=== PATIENT | female | born 1980 | race Two or more races ===

== ENCOUNTER 2019-06-28 21:28 | Emergency (ER) | payer MEDICAID ==
[~2019-06-28] VITALS: Ht 157.5 cm; Wt 77.1 kg
[2019-06-28 22:46] VITALS: BP 152/80
== END 2019-06-28 23:02 | disposition home or self-care (01) ==
LOC: ER 21:31
DX: S00.86XA Insect bite (nonvenomous) of other part of head, initial encounter (principal); I10 Essential (primary) hypertension; W57.XXXA Bitten or stung by nonvenomous insect and other nonvenomous arthropods, initial encounter; Y93.89 Activity, other specified; Y92.89 Other specified places as the place of occurrence of the external cause; Y99.8 Other external cause status

== ENCOUNTER 2021-02-20 18:45 | Inpatient (IN) | payer MEDICAID ==
[~2021-02-20] VITALS: Ht 157.5 cm; Wt 83.2 kg
[2021-02-20 23:27] LABS: Basophils # (auto) 0.1 10 ^3/uL (0-0.2); Basophils % (auto) 0.6 % (0.0-2.0); Eosinophils # (auto) 0 10 ^3/uL (0-0.8); Eosinophils % (auto) 0.3 % (0.0-7.0); Hematocrit 45.3 % (36.0-46.0); Hemoglobin 15.5 g/dL (12.2-16.2); Lymphocytes # (auto) 4.4 10 ^3/uL (0.4-5.4); Lymphocytes % (auto) 35.9 % (10.0-50.0); Mean Corpuscular Hemoglobin 30.9 pg (28.0-32.0); Mean Corpuscular Hgb Conc. 34.1 g/dL (32.0-36.0); Mean Corpuscular Volume 90.6 fL (80.0-100.0); Monocytes # (auto) 0.9 10 ^3/uL (0-1.3); Monocytes % (auto) 6.9 % (0.0-12.0); Neutrophils % (auto) 56.3 % (37.0-80.0); Nucleated Red Blood Cells % 0.1 %; Red Cell Distribution Width 13.3 % (11.8-14.3); White Blood Cell 12.4 10^3/uL (4.4-10.8)
[2021-02-20 23:47] LABS: Albumin 3.6 g/dL (3.4-5.0); Calcium 8.5 mg/dL (8.5-10.1)
[2021-02-20 23:52] LABS: BUN/Creatinine Ratio 18.8; Bilirubin, Total 0.2 mg/dL (0.2-1.0); Total Protein 7.5 g/dL (6.4-8.2)
[2021-02-21 00:17] LABS: Potassium 2.9 mmol/L (3.5-5.1)
[2021-02-21] MEDS ORDERED: ASPirin 81 mg TAB PO ONE (01:00)
[2021-02-21] MEDS ORDERED: METOPROLOL TARTRATE 1MG/1ML-5ML VIAL IV ONE ×2 (01:45→03:45)
[2021-02-21] MEDS ORDERED: POTASSIUM CHL 20MEQ/100ML 100 ML IV ONE (02:15)
[2021-02-21] MEDS ORDERED: POTASSIUM EFFERVESENT TAB 25 MEQ PO ONE (02:15)
[2021-02-21 02:54] LABS: Albumin 3.4 g/dL (3.4-5.0); BUN/Creatinine Ratio 16.3; Calcium 8.5 mg/dL (8.5-10.1); Magnesium 2.1 mg/dL (1.6-2.6); Potassium 3.2 mmol/L (3.5-5.1)
[2021-02-21 02:57] LABS: Bilirubin, Total 0.4 mg/dL (0.2-1.0)
[2021-02-21 03:05] LABS: INR 1.06 (0.9-1.15); Partial Thromboplastin Time 23.9 sec (23.6-33.0)
[2021-02-21 03:27] LABS: Urine Bacteria NONE SEEN /hpf (None Seen); Urine Blood Negative /uL (Negative); Urine WBC 4 /hpf (0 - 5)
[2021-02-21] MEDS ORDERED: SODIUM CHLORIDE 0.9% 1,000 ML IV ONE (03:45)
[2021-02-21] MEDS ORDERED: ONDANSETRON HCL 4 MG/2 ML VIAL IV PRN (09:30)
[2021-02-21] MEDS ORDERED: NITROGLYCERIN 0.4 MG SL TAB SL PRN (09:30)
[2021-02-21] MEDS ORDERED: HYDROcodone-ACET 5/325MG TAB PO PRN (09:30)
[2021-02-21] MEDS ORDERED: ACETAMINOPHEN 325 MG TAB PO PRN (09:30)
[2021-02-21] MEDS ORDERED: MORPHINE SULFATE INJECTION 2 MG/ML SYRG IV PRN (09:30)
[2021-02-21] MEDS: ENOXAPARIN SOD 40 MG/0.4 ML SYRINGE SC SCH (10:35)
[2021-02-21 12:52] VITALS: BP 95/60
[2021-02-21] MEDS ORDERED: HYDR50TA69 PO (13:44)
[2021-02-21] MEDS ORDERED: BENA20TA14 PO (13:44)
[2021-02-21] MEDS ORDERED: ATEN50TA PO (13:44)
[2021-02-21 13:48] VITALS: BP 98/54
[2021-02-21] MEDS ORDERED: METOPROLOL TARTRATE 1MG/1ML-5ML VIAL IV PRN (16:25)
[2021-02-21 16:34] VITALS: BP 101/61
[2021-02-21] MEDS ORDERED: DIGOXIN (250MCG/ML) 2 ML AMPULE IV ONE (17:45)
[2021-02-21] MEDS ORDERED: AMIODARONE HCL 150 MG in D5W 5% 100 ML IV ONE (17:45)
[2021-02-21] MEDS: AMIODARONE 450mg/250ml AE 250 ML IV SCH (19:44)
[2021-02-21 20:00] VITALS: BP 98/63
[2021-02-21 22:00] VITALS: BP 103/57
[2021-02-22] MEDS: AMIODARONE 450mg/250ml AE 250 ML IV SCH ×3 (02:25→17:52)
[2021-02-22 05:24] VITALS: BP 102/63
[2021-02-22 08:00] VITALS: BP 100/70
[2021-02-22 09:00] VITALS: BP 100/70
[2021-02-22] MEDS: ENOXAPARIN SOD 40 MG/0.4 ML SYRINGE SC SCH (09:49)
[2021-02-22] MEDS: MORPHINE SULFATE 4 MG/ML SYR/VIAL IV PRN (09:50)
[2021-02-22 13:00] VITALS: BP 106/64
[2021-02-22 16:58] VITALS: BP 120/67
[2021-02-22 21:49] VITALS: BP 101/63
[2021-02-23 05:13] VITALS: BP 102/71
[2021-02-23 06:15] LABS: Potassium 3.7 mmol/L (3.5-5.1)
[2021-02-23 06:19] LABS: BUN/Creatinine Ratio 22.9
[2021-02-23 08:00] VITALS: BP 121/64
[2021-02-23] MEDS: AMIODARONE 450mg/250ml AE 250 ML IV SCH (08:30)
[2021-02-23 09:00] VITALS: BP 121/64
[2021-02-23] MEDS: ENOXAPARIN SOD 40 MG/0.4 ML SYRINGE SC SCH (10:17)
[2021-02-23] MEDS: MORPHINE SULFATE 4 MG/ML SYR/VIAL IV PRN (10:19)
[2021-02-23 13:00] VITALS: BP 120/64
[2021-02-23 17:04] VITALS: BP 109/77
[2021-02-23] MEDS: ATENOLOL 50 MG TAB PO SCH (17:45)
[2021-02-23] MEDS: AMIODARONE HCL 200 MG TAB PO SCH (21:34)
[2021-02-23 22:00] VITALS: BP 133/81
[2021-02-23] MEDS ORDERED: AMIODARONE 450mg/250ml AE 250 ML IV SCH (23:00)
[2021-02-24 05:00] VITALS: BP 116/77
[2021-02-24] MEDS: MORPHINE SULFATE 4 MG/ML SYR/VIAL IV PRN (05:23)
[2021-02-24 06:37] LABS: BUN/Creatinine Ratio 18.7; Calcium 8.3 mg/dL (8.5-10.1); Potassium 4.1 mmol/L (3.5-5.1)
[2021-02-24 08:40] VITALS: BP 107/66
[2021-02-24] MEDS: ENOXAPARIN SOD 40 MG/0.4 ML SYRINGE SC SCH (09:34)
[2021-02-24] MEDS: AMIODARONE HCL 200 MG TAB PO SCH (09:35)
[2021-02-24] MEDS: ATENOLOL 50 MG TAB PO SCH (09:36)
[2021-02-24 13:00] VITALS: BP 115/66
[2021-02-24 14:17] VITALS: BP 115/66
== END 2021-02-24 15:20 | disposition home or self-care (01) | DRG 201 ==
LOC: ER 18:47 → TELE 02-21 09:29 → TELE-CENTR 02-21 12:35
PROVIDERS: ADMIT Internal Medicine; ATTEND Internal Medicine
DX: I48.0 Paroxysmal atrial fibrillation (principal); I27.20 Pulmonary hypertension, unspecified; I48.92 Unspecified atrial flutter; I20.9 Angina pectoris, unspecified; I10 Essential (primary) hypertension; M79.602 Pain in left arm; R77.8 Other specified abnormalities of plasma proteins; Z95.0 Presence of cardiac pacemaker; Z88.0 Allergy status to penicillin; Z20.822 Contact with and (suspected) exposure to COVID-19
CPT/HCPCS: 36415; 71045; 80048; 80053; 81001; 81025; 83735; 83880; 84443; 84484; 85025; 85610; 85730; 87426; 93005; 93306; 96365; 96366; 96372; 96375; 96376; G0378; J3480; J7060

== ENCOUNTER 2021-04-01 02:26 | Inpatient (IN) | payer MEDICAID ==
[~2021-04-01] VITALS: Ht 157.5 cm; Wt 77.1 kg
[~2021-04-01 02:26] MED LIST: ATEN50TA PO; BENA20TA14 PO; HYDR50TA69 PO
[2021-04-01 05:15] LABS: Basophils # (auto) 0 10 ^3/uL (0-0.2); Basophils % (auto) 0.2 % (0.0-2.0); Eosinophils # (auto) 0 10 ^3/uL (0-0.8); Eosinophils % (auto) 0.1 % (0.0-7.0); Hematocrit 42.9 % (36.0-46.0); Lymphocytes % (auto) 10.4 % (10.0-50.0); Mean Corpuscular Hemoglobin 31.6 pg (28.0-32.0); Mean Corpuscular Hgb Conc. 34.8 g/dL (32.0-36.0); Mean Corpuscular Volume 90.6 fL (80.0-100.0); Monocytes # (auto) 0.5 10 ^3/uL (0-1.3); Monocytes % (auto) 4.8 % (0.0-12.0); Neutrophils # (auto) 8.3 10 ^3/uL (1.6-8.6); Neutrophils % (auto) 84.5 % (37.0-80.0); Red Blood Cells 4.74 10^6/uL (4.0-5.20); Red Cell Distribution Width 14.2 % (11.8-14.3); White Blood Cell 9.8 10^3/uL (4.4-10.8)
[2021-04-01 05:48] LABS: Albumin 4.3 g/dL (3.4-5.0); Calcium 8.7 mg/dL (8.5-10.1)
[2021-04-01 05:53] LABS: BUN/Creatinine Ratio 18.8; Bilirubin, Total 0.9 mg/dL (0.2-1.0); Total Protein 7.9 g/dL (6.4-8.2)
[2021-04-01 06:01] LABS: Potassium 2.9 mmol/L (3.5-5.1)
[2021-04-01] MEDS ORDERED: POTASSIUM EFFERVESENT TAB 25 MEQ PO ONE (07:00)
[2021-04-01] MEDS ORDERED: ONDANSETRON HCL 4 MG/2 ML VIAL IV ONE (10:15)
[2021-04-01 10:59] LABS: Urine Bacteria NONE SEEN /hpf (None Seen); Urine Blood 2+ /uL (Negative); Urine Mucus FEW (None Seen); Urine Specific Gravity 1.023 (1.001-1.035); Urine WBC 8 /hpf (0 - 5)
[2021-04-01] MEDS ORDERED: NITROGLYCERIN 0.4 MG SL TAB SL PRN (12:15)
[2021-04-01] MEDS ORDERED: DOCUSATE SOD 100 MG CAP PO PRN (12:15)
[2021-04-01] MEDS ORDERED: ACETAMINOPHEN 325 MG TAB PO PRN (12:15)
[2021-04-01] MEDS ORDERED: HYDROcodone-ACET 5/325MG TAB PO PRN (12:15)
[2021-04-01] MEDS ORDERED: hydrOXYzine 25 MG TAB or CAP PO PRN (12:15)
[2021-04-01] MEDS: LEVALBUTEROL HCL 1.25 MG/3 ML NEB NEB SCH ×2 (12:15→18:18)
[2021-04-01] MEDS ORDERED: MORPHINE SULFATE INJECTION 2 MG/ML SYRG IV PRN (12:15)
[2021-04-01 14:23] VITALS: BP 84/60
[2021-04-01] MEDS: POTASSIUM CHL 20MEQ/50ML 50 ML IV SCH ×3 (14:25→17:50)
[2021-04-01] MEDS: DOXYCYCLINE 100MG/250ML 250 ML IV SCH ×2 (14:25→23:17)
[2021-04-01] MEDS ORDERED: APIX5TAB PO (18:44)
[2021-04-01] MEDS ORDERED: AMIO200T33 PO (18:44)
[2021-04-01] MEDS: ASCORBIC ACID 500 MG TAB PO SCH (23:17)
[2021-04-02] MEDS ORDERED: SODIUM CHLORIDE 0.9% 1,000 ML IV ONE (00:45)
[2021-04-02] MEDS ORDERED: SODIUM CHLORIDE 0.9% 1,000 ML IV SCH (00:45)
[2021-04-02 03:37] LABS: Basophils # (auto) 0 10 ^3/uL (0-0.2); Basophils % (auto) 0.5 % (0.0-2.0); Eosinophils # (auto) 0 10 ^3/uL (0-0.8); Eosinophils % (auto) 0.3 % (0.0-7.0); Hematocrit 37.3 % (36.0-46.0); Hemoglobin 12.9 g/dL (12.2-16.2); Lymphocytes # (auto) 1.3 10 ^3/uL (0.4-5.4); Lymphocytes % (auto) 24.7 % (10.0-50.0); Mean Corpuscular Hemoglobin 31.9 pg (28.0-32.0); Mean Corpuscular Hgb Conc. 34.7 g/dL (32.0-36.0); Mean Corpuscular Volume 92.1 fL (80.0-100.0); Monocytes # (auto) 0.7 10 ^3/uL (0-1.3); Monocytes % (auto) 14.2 % (0.0-12.0); Neutrophils # (auto) 3.1 10 ^3/uL (1.6-8.6); Neutrophils % (auto) 60.3 % (37.0-80.0); Nucleated Red Blood Cells % 0.1 %; Red Blood Cells 4.05 10^6/uL (4.0-5.20); Red Cell Distribution Width 14.4 % (11.8-14.3); White Blood Cell 5.1 10^3/uL (4.4-10.8)
[2021-04-02 04:13] LABS: BUN/Creatinine Ratio 18.1; Calcium 7.8 mg/dL (8.5-10.1); Potassium 3.3 mmol/L (3.5-5.1)
[2021-04-02] MEDS: LEVALBUTEROL HCL 1.25 MG/3 ML NEB NEB SCH ×3 (06:39→13:08)
[2021-04-02 08:00] VITALS: BP 87/65
[2021-04-02] MEDS ORDERED: ZINC SULFATE 220mg CAP or TAB PO SCH (10:00)
[2021-04-02] MEDS ORDERED: CHOLECALCIFEROL (VITD3) 2,000 UNIT CAP/TAB PO SCH (10:00)
[2021-04-02] MEDS: ASCORBIC ACID 500 MG TAB PO SCH (11:35)
[2021-04-02] MEDS: DOXYCYCLINE 100MG/250ML 250 ML IV SCH (11:36)
[2021-04-02] MEDS ORDERED: HYDR25TA5 GT (13:11)
[2021-04-02] MEDS ORDERED: POTASSIUM CHL 20 Meq TABLET PO ONE (14:30)
[2021-04-02] MEDS ORDERED: HYDR25TA5 PO (14:43)
[2021-04-02] MEDS ORDERED: ATEN-60 PO (14:43)
[2021-04-02] MEDS ORDERED: POTA-180 PO (14:43)
[2021-04-03] MEDS ORDERED: POTASSIUM CHL 20 Meq TABLET PO SCH (10:00)
== END 2021-04-02 15:46 | disposition home or self-care (01) | DRG 198 ==
LOC: ER 02:26 → TELE 12:02
PROVIDERS: ADMIT Internal Medicine; ATTEND Internal Medicine
DX: R07.89 Other chest pain (principal); I25.10 Atherosclerotic heart disease of native coronary artery without angina pectoris; J96.00 Acute respiratory failure, unspecified whether with hypoxia or hypercapnia; I48.92 Unspecified atrial flutter; I11.0 Hypertensive heart disease with heart failure; I50.9 Heart failure, unspecified; E66.01 Morbid (severe) obesity due to excess calories; E87.6 Hypokalemia; J06.9 Acute upper respiratory infection, unspecified; J98.11 Atelectasis; Z79.01 Long term (current) use of anticoagulants; Z68.31 Body mass index [BMI] 31.0-31.9, adult; Z20.822 Contact with and (suspected) exposure to COVID-19; Z87.74 Personal history of (corrected) congenital malformations of heart and circulatory system; Z95.0 Presence of cardiac pacemaker; Z79.899 Other long term (current) drug therapy; Z88.0 Allergy status to penicillin
CPT/HCPCS: 36415; 71045; 80048; 80053; 81001; 83605; 83690; 83880; 84132; 84484; 85025; 87426; 87804; 93005; 94640; 96374; G0378; J2405; J3490

== ENCOUNTER 2021-07-16 00:53 | Inpatient (IN) | payer MEDICAID ==
[~2021-07-16] VITALS: Ht 157.5 cm; Wt 78.3 kg
[~2021-07-16 00:53] MED LIST changes: +AMIO200T33 PO; +APIX5TAB PO; +ATEN-60 PO; +HYDR25TA5 GT; +HYDR25TA5 PO; -HYDR50TA69 PO; +POTA-180 PO
[2021-07-16 02:17] LABS: Basophils # (auto) 0 10 ^3/uL (0-0.2); Basophils % (auto) 0.3 % (0.0-2.0); Eosinophils # (auto) 0 10 ^3/uL (0-0.8); Eosinophils % (auto) 0.1 % (0.0-7.0); Hematocrit 35.9 % (36.0-46.0); Lymphocytes # (auto) 1.6 10 ^3/uL (0.4-5.4); Mean Corpuscular Hemoglobin 30.3 pg (28.0-32.0); Mean Corpuscular Hgb Conc. 33.4 g/dL (32.0-36.0); Mean Corpuscular Volume 90.8 fL (80.0-100.0); Monocytes # (auto) 0.6 10 ^3/uL (0-1.3); Monocytes % (auto) 8.1 % (0.0-12.0); Neutrophils # (auto) 5.4 10 ^3/uL (1.6-8.6); Neutrophils % (auto) 70.5 % (37.0-80.0); Nucleated Red Blood Cells % 0.1 %; Red Blood Cells 3.96 10^6/uL (4.0-5.20); Red Cell Distribution Width 14.1 % (11.8-14.3); White Blood Cell 7.6 10^3/uL (4.4-10.8)
[2021-07-16 02:35] LABS: Potassium 3.7 mmol/L (3.5-5.1)
[2021-07-16 02:39] LABS: Albumin 3.6 g/dL (3.4-5.0); BUN/Creatinine Ratio 17.9; Calcium 8.8 mg/dL (8.5-10.1)
[2021-07-16 02:42] LABS: Bilirubin, Total 0.3 mg/dL (0.2-1.0); Total Protein 6.4 g/dL (6.4-8.2)
[2021-07-16 04:05] LABS: Urine Bacteria FEW /hpf (None Seen); Urine Blood Negative /uL (Negative); Urine Specific Gravity 1.015 (1.001-1.035); Urine WBC 18 /hpf (0 - 5)
[2021-07-16] MEDS ORDERED: IOHEXOL 350 MG/ML 100ML IJ ONE (05:02)
[2021-07-16] MEDS ORDERED: MORPHINE SULFATE 4 MG/ML SYR/VIAL IV ONE (05:45)
[2021-07-16] MEDS ORDERED: FUROSEMIDE 100 MG/10ML VIAL IV ONE (06:45)
[2021-07-16] MEDS ORDERED: PIPERACILLIN-TAZOB 3.375GM 100 ML IV ONE (07:30)
[2021-07-16] MEDS ORDERED: cefTRIAXone 1GM/50ML D5W 50 ML IV ONE (11:00)
[2021-07-16] MEDS ORDERED: ONDANSETRON HCL 4 MG/2 ML VIAL IV PRN (12:00)
[2021-07-16] MEDS ORDERED: MORPHINE SULFATE INJECTION 2 MG/ML SYRG IV PRN (12:00)
[2021-07-16] MEDS ORDERED: NITROGLYCERIN 0.4 MG SL TAB SL PRN (12:00)
[2021-07-16] MEDS: HYDROcodone-ACET 5/325MG TAB PO PRN ×2 (14:02→22:40)
[2021-07-16 16:07] VITALS: BP 99/67
[2021-07-16 17:00] VITALS: BP 99/67
[2021-07-16] MEDS: BUMETANIDE 2.5mg/10ml (0.25 mg/ml) INJ IV SCH (17:53)
[2021-07-16 22:00] VITALS: BP 102/63
[2021-07-16] MEDS: AMIODARONE HCL 200 MG TAB PO SCH (22:17)
[2021-07-16] MEDS: APIXABAN 5 MG TAB PO SCH (22:17)
[2021-07-16] MEDS: POTASSIUM CHL 20 Meq TABLET PO SCH (22:17)
[2021-07-17 05:00] VITALS: BP 110/48
[2021-07-17 05:46] LABS: BUN/Creatinine Ratio 17.6; Calcium 8.2 mg/dL (8.5-10.1); Potassium 3.3 mmol/L (3.5-5.1)
[2021-07-17] MEDS: BUMETANIDE 2.5mg/10ml (0.25 mg/ml) INJ IV SCH (06:06)
[2021-07-17 08:00] VITALS: BP 107/60
[2021-07-17] MEDS: POTASSIUM CHL 20 Meq TABLET PO SCH (09:13)
[2021-07-17] MEDS: APIXABAN 5 MG TAB PO SCH (09:13)
[2021-07-17] MEDS: AMIODARONE HCL 200 MG TAB PO SCH (09:13)
[2021-07-17] MEDS ORDERED: ATENOLOL 25 MG TAB PO SCH (10:00)
[2021-07-17 12:00] VITALS: BP 103/64
[2021-07-17] MEDS ORDERED: HYDR25TA5 PO (13:57)
[2021-07-17] MEDS ORDERED: CIPR-173 PO (13:57)
[2021-07-17] MEDS ORDERED: POTA-180 PO (13:57)
[2021-07-17 14:02] VITALS: BP 103/64
== END 2021-07-17 15:00 | disposition home or self-care (01) | DRG 194 ==
LOC: ER 01:03 → TELE 11:59 → TELE-EAST 16:03
PROVIDERS: ADMIT Hospitalist; ATTEND Hospitalist
DX: I11.0 Hypertensive heart disease with heart failure (principal); Q20.5 Discordant atrioventricular connection; N39.0 Urinary tract infection, site not specified; I50.43 Acute on chronic combined systolic (congestive) and diastolic (congestive) heart failure; R09.02 Hypoxemia; I48.91 Unspecified atrial fibrillation; R79.89 Other specified abnormal findings of blood chemistry; Z20.822 Contact with and (suspected) exposure to COVID-19; Z82.49 Family history of ischemic heart disease and other diseases of the circulatory system; Z95.0 Presence of cardiac pacemaker; Z88.0 Allergy status to penicillin
CPT/HCPCS: 36415; 71045; 71275; 80048; 80053; 81001; 81025; 83880; 84484; 85025; 87040; 93306; 96365; 96367; 96375; G0378; J0696; J2543

== ENCOUNTER 2021-11-14 08:43 | Emergency (ER) | payer MEDICAID ==
[~2021-11-14] VITALS: Ht 157.5 cm; Wt 79.0 kg
[~2021-11-14 08:43] MED LIST changes: -ATEN50TA PO; -BENA20TA14 PO; +CIPR-173 PO; -HYDR25TA5 GT
[2021-11-14 09:44] LABS: Basophils # (auto) 0 10 ^3/uL (0-0.2); Eosinophils # (auto) 0 10 ^3/uL (0-0.8); Monocytes # (auto) 0.6 10 ^3/uL (0-1.3); Nucleated Red Blood Cells % 0.1 %; Red Cell Distribution Width 14.4 % (11.8-14.3)
[2021-11-14 09:48] LABS: Basophils % (auto) 0.5 % (0.0-2.0); Eosinophils % (auto) 0.1 % (0.0-7.0); Hematocrit 36.5 % (36.0-46.0); Lymphocytes % (auto) 27.4 % (10.0-50.0); Mean Corpuscular Hemoglobin 26.9 pg (28.0-32.0); Mean Corpuscular Volume 81.4 fL (80.0-100.0); Neutrophils # (auto) 4.7 10 ^3/uL (1.6-8.6); Red Blood Cells 4.48 10^6/uL (4.0-5.20); White Blood Cell 7.3 10^3/uL (4.4-10.8)
[2021-11-14 10:07] LABS: Albumin 3.9 g/dL (3.4-5.0); Calcium 8.6 mg/dL (8.5-10.1)
[2021-11-14 10:11] LABS: BUN/Creatinine Ratio 17.5; Bilirubin, Total 0.6 mg/dL (0.2-1.0); Total Protein 7.2 g/dL (6.4-8.2)
[2021-11-14 10:19] LABS: Potassium 2.9 mmol/L (3.5-5.1)
[2021-11-14 10:37] LABS: Urine Bacteria FEW /hpf (None Seen); Urine Blood Negative /uL (Negative); Urine Mucus FEW (None Seen); Urine Specific Gravity 1.021 (1.001-1.035); Urine WBC 18 /hpf (0 - 5)
[2021-11-14] MEDS ORDERED: POTASSIUM EFFERVESENT TAB 25 MEQ PO ONE (10:45)
[2021-11-14] MEDS ORDERED: NITR-87 PO (11:14)
[2021-11-14] MEDS ORDERED: cefTRIAXone 1GM/50ML D5W 50 ML IV ONE (11:15)
[2021-11-14 12:00] VITALS: BP 106/68
[2021-11-14] MEDS ORDERED: LORazepam 2MG/ML-1ML VIAL IV ONE (12:45)
== END 2021-11-14 13:07 | disposition home or self-care (01) ==
LOC: ER 08:43
DX: R00.2 Palpitations (principal); N39.0 Urinary tract infection, site not specified; E87.6 Hypokalemia; I10 Essential (primary) hypertension; I48.91 Unspecified atrial fibrillation; Z95.0 Presence of cardiac pacemaker; Z79.2 Long term (current) use of antibiotics; Z79.899 Other long term (current) drug therapy; Z88.0 Allergy status to penicillin
CPT/HCPCS: 36415; 71045; 80053; 81001; 84484; 85025; 85379; 93005; 96365; 99285; J0696

== ENCOUNTER 2021-12-10 08:20 | Inpatient (IN) | payer MEDICAID ==
[~2021-12-10] VITALS: Ht 157.5 cm; Wt 80.5 kg
[~2021-12-10 08:20] MED LIST changes: +NITR-87 PO
[2021-12-10 08:50] LABS: Albumin 3.7 g/dL (3.4-5.0); Calcium 8.1 mg/dL (8.5-10.1); Potassium 3.4 mmol/L (3.5-5.1)
[2021-12-10 08:54] LABS: BUN/Creatinine Ratio 16.3; Basophils # (auto) 0 10 ^3/uL (0-0.2); Bilirubin, Total 0.8 mg/dL (0.2-1.0); Eosinophils # (auto) 0 10 ^3/uL (0-0.8); Lymphocytes # (auto) 1.4 10 ^3/uL (0.4-5.4); Neutrophils # (auto) 8.2 10 ^3/uL (1.6-8.6); Total Protein 6.8 g/dL (6.4-8.2); White Blood Cell 10.3 10^3/uL (4.4-10.8)
[2021-12-10 08:56] LABS: Basophils % (auto) 0.3 % (0.0-2.0); Hematocrit 31.5 % (36.0-46.0); Hemoglobin 10.4 g/dL (12.2-16.2); Lymphocytes % (auto) 13.3 % (10.0-50.0); Mean Corpuscular Hemoglobin 26.7 pg (28.0-32.0); Mean Corpuscular Hgb Conc. 33.1 g/dL (32.0-36.0); Mean Corpuscular Volume 80.8 fL (80.0-100.0); Monocytes # (auto) 0.8 10 ^3/uL (0-1.3); Monocytes % (auto) 7.3 % (0.0-12.0); Neutrophils % (auto) 79.1 % (37.0-80.0); Nucleated Red Blood Cells % 0.2 %; Red Cell Distribution Width 14.8 % (11.8-14.3)
[2021-12-10] MEDS ORDERED: MORPHINE SULFATE INJ 2 MG/ml SYRG IV ONE (11:00)
[2021-12-10] MEDS ORDERED: ASPirin 81 mg TAB PO ONE (11:00)
[2021-12-10] MEDS ORDERED: SODIUM CHLORIDE 0.9% 1,000 ML IV ONE (11:00)
[2021-12-10] MEDS ORDERED: ONDANSETRON HCL 4 MG/2 ML VIAL IV ONE (11:00)
[2021-12-10 11:37] LABS: INR 1.03 (0.9-1.15); Partial Thromboplastin Time 26.5 sec (24.6-33.4)
[2021-12-10 14:02] LABS: Urine Bacteria FEW /hpf (None Seen); Urine Blood Negative /uL (Negative); Urine Mucus FEW (None Seen); Urine Specific Gravity 1.038 (1.001-1.035); Urine WBC 78 /hpf (0 - 5)
[2021-12-10] MEDS ORDERED: cefTRIAXone 1GM/50ML D5W 50 ML IV ONE (14:45)
[2021-12-10] MEDS ORDERED: MORPHINE SULFATE INJ 2 MG/ml SYRG IV PRN (15:30)
[2021-12-10] MEDS ORDERED: DOCUSATE SOD 100 MG CAP PO PRN (15:30)
[2021-12-10] MEDS ORDERED: ONDANSETRON HCL 4 MG/2 ML VIAL IV PRN (15:30)
[2021-12-10] MEDS: SODIUM CHLORIDE 0.9% 1,000 ML IV SCH (16:16)
[2021-12-10] MEDS ORDERED: IOHEXOL 350 MG/ML 100ML IJ ONE (16:36)
[2021-12-10] MEDS: AZITHROMYCIN 500MG/ 250ML 250 ML IV SCH (17:04)
[2021-12-10] MEDS: ACETAMINOPHEN 325 MG TAB PO PRN ×2 (17:17→22:17)
[2021-12-11 04:57] LABS: Basophils # (auto) 0 10 ^3/uL (0-0.2); Basophils % (auto) 0.4 % (0.0-2.0); Eosinophils # (auto) 0 10 ^3/uL (0-0.8); Lymphocytes # (auto) 1.2 10 ^3/uL (0.4-5.4); Mean Corpuscular Hgb Conc. 32.3 g/dL (32.0-36.0); Monocytes # (auto) 0.6 10 ^3/uL (0-1.3); Red Cell Distribution Width 14.9 % (11.8-14.3)
[2021-12-11 05:02] LABS: Eosinophils % (auto) 0.1 % (0.0-7.0); Hematocrit 30.9 % (36.0-46.0); Lymphocytes % (auto) 16.9 % (10.0-50.0); Mean Corpuscular Hemoglobin 26.2 pg (28.0-32.0); Monocytes % (auto) 8.7 % (0.0-12.0); Neutrophils # (auto) 5.2 10 ^3/uL (1.6-8.6); Neutrophils % (auto) 73.9 % (37.0-80.0); Nucleated Red Blood Cells % 0.1 %; Red Blood Cells 3.82 10^6/uL (4.0-5.20)
[2021-12-11 05:15] LABS: Albumin 3.3 g/dL (3.4-5.0); Calcium 7.7 mg/dL (8.5-10.1); Potassium 3.7 mmol/L (3.5-5.1)
[2021-12-11 05:17] LABS: BUN/Creatinine Ratio 14.1; Bilirubin, Total 0.5 mg/dL (0.2-1.0); Total Protein 6.3 g/dL (6.4-8.2)
[2021-12-11] MEDS: HYDROcodone-ACET 5/325MG TAB PO PRN ×2 (06:51→22:16)
[2021-12-11] MEDS: SODIUM CHLORIDE 0.9% 1,000 ML IV SCH (09:37)
[2021-12-11] MEDS: cefTRIAXone 1GM/50ML D5W 50 ML IV SCH (09:37)
[2021-12-11] MEDS ORDERED: ENOXAPARIN SOD 40 MG/0.4 ML SYRINGE SC SCH (10:00)
[2021-12-11] MEDS ORDERED: AMIODARONE HCL 200 MG TAB PO ONE (13:00)
[2021-12-11] MEDS ORDERED: FUROSEMIDE 40 MG/4 ML VIAL IV ONE (13:00)
[2021-12-11] MEDS: AZITHROMYCIN 500MG/ 250ML 250 ML IV SCH (18:15)
[2021-12-11 18:16] VITALS: BP 110/48
[2021-12-11 18:25] VITALS: BP 110/48
[2021-12-11] MEDS: FUROSEMIDE 20 MG/2 ML VIAL IV SCH (18:43)
[2021-12-11] MEDS ORDERED: DAPA1TAB4 PO (18:47)
[2021-12-11] MEDS ORDERED: APIX5TAB PO (18:47)
[2021-12-11] MEDS ORDERED: SPIR25TA8 PO (18:47)
[2021-12-11 22:00] VITALS: BP 116/64
[2021-12-11] MEDS ORDERED: ENOXAPARIN SOD 80 MG/0.8ML SYRINGE SC SCH (22:00)
[2021-12-11] MEDS: AMIODARONE HCL 200 MG TAB PO SCH (22:16)
[2021-12-11] MEDS: METOPROLOL TARTRATE 25 MG TAB PO SCH (22:17)
[2021-12-12 05:00] VITALS: BP 103/57
[2021-12-12] MEDS: FUROSEMIDE 20 MG/2 ML VIAL IV SCH (06:37)
[2021-12-12 09:00] VITALS: BP 99/50
[2021-12-12] MEDS: cefTRIAXone 1GM/50ML D5W 50 ML IV SCH (09:54)
[2021-12-12] MEDS: DAPAGLIFLOZIN 5 MG TAB PO SCH (09:56)
[2021-12-12] MEDS: SPIRONOLACTONE 25 MG TAB PO SCH (09:56)
[2021-12-12] MEDS ORDERED: BENAZEPRIL HCL 10 MG TAB PO SCH (10:00)
[2021-12-12] MEDS: METOPROLOL TARTRATE 25 MG TAB PO SCH ×2 (10:05→21:27)
[2021-12-12] MEDS: HYDROcodone-ACET 5/325MG TAB PO PRN (10:06)
[2021-12-12] MEDS: AMIODARONE HCL 200 MG TAB PO SCH ×2 (10:07→21:24)
[2021-12-12 12:45] VITALS: BP 106/50
[2021-12-12 16:35] VITALS: BP 112/56
[2021-12-12] MEDS ORDERED: IPRATROPIUM BROM 0.5 MG/2.5ML INH SOL NEB PRN (16:45)
[2021-12-12] MEDS: APIXABAN 5 MG TAB PO SCH (21:25)
[2021-12-12] MEDS: DOXYCYCLINE 100 MG TAB/CAP PO SCH (21:25)
[2021-12-12 22:00] VITALS: BP 114/57
[2021-12-13] VITALS (7 sets, daily range): BP systolic 100–112; BP diastolic 44–59
[2021-12-13 05:38] LABS: Basophils # (auto) 0 10 ^3/uL (0-0.2); Eosinophils # (auto) 0.1 10 ^3/uL (0-0.8); Lymphocytes # (auto) 1.7 10 ^3/uL (0.4-5.4); Lymphocytes % (auto) 28.2 % (10.0-50.0); Mean Corpuscular Hgb Conc. 31.9 g/dL (32.0-36.0); Monocytes # (auto) 0.7 10 ^3/uL (0-1.3); Red Cell Distribution Width 14.9 % (11.8-14.3); White Blood Cell 5.9 10^3/uL (4.4-10.8)
[2021-12-13 05:43] LABS: Basophils % (auto) 0.4 % (0.0-2.0); Eosinophils % (auto) 1.4 % (0.0-7.0); Hematocrit 32.7 % (36.0-46.0); Hemoglobin 10.4 g/dL (12.2-16.2); Mean Corpuscular Volume 81.6 fL (80.0-100.0); Monocytes % (auto) 11.9 % (0.0-12.0); Neutrophils # (auto) 3.4 10 ^3/uL (1.6-8.6); Neutrophils % (auto) 58.1 % (37.0-80.0)
[2021-12-13 05:57] LABS: Calcium 8.2 mg/dL (8.5-10.1); Potassium 3.5 mmol/L (3.5-5.1)
[2021-12-13 06:04] LABS: Albumin 3.3 g/dL (3.4-5.0); BUN/Creatinine Ratio 24.6; Bilirubin, Total 0.4 mg/dL (0.2-1.0); Total Protein 6.4 g/dL (6.4-8.2)
[2021-12-13] MEDS ORDERED: FUROSEMIDE 20 MG/2 ML VIAL IV SCH (10:00)
[2021-12-13] MEDS: DOXYCYCLINE 100 MG TAB/CAP PO SCH (10:15)
[2021-12-13] MEDS: APIXABAN 5 MG TAB PO SCH (10:44)
[2021-12-13] MEDS: cefTRIAXone 1GM/50ML D5W 50 ML IV SCH (10:44)
[2021-12-13] MEDS: METOPROLOL TARTRATE 25 MG TAB PO SCH (12:00)
[2021-12-13] MEDS: SPIRONOLACTONE 25 MG TAB PO SCH (12:00)
[2021-12-13] MEDS: DAPAGLIFLOZIN 5 MG TAB PO SCH (12:39)
[2021-12-13] MEDS: AMIODARONE HCL 200 MG TAB PO SCH (12:39)
[2021-12-13] MEDS: HYDROcodone-ACET 5/325MG TAB PO PRN (12:48)
[2021-12-13] MEDS ORDERED: CLINDAMYCIN 300MG IV 50 ML IV SCH (15:41)
== END 2021-12-13 20:15 | disposition short-term general hospital (02) | DRG 133 ==
LOC: ER 08:20 → TELE 15:32 → TELE-CENTR 12-11 18:01
PROVIDERS: ADMIT Internal Medicine; ATTEND Nurse Practitioner Acute Care
DX: J96.01 Acute respiratory failure with hypoxia (principal); I21.A1 Myocardial infarction type 2; Q20.3 Discordant ventriculoarterial connection; I27.20 Pulmonary hypertension, unspecified; D69.6 Thrombocytopenia, unspecified; J18.9 Pneumonia, unspecified organism; D63.8 Anemia in other chronic diseases classified elsewhere; N30.01 Acute cystitis with hematuria; I11.0 Hypertensive heart disease with heart failure; E11.9 Type 2 diabetes mellitus without complications; Z20.822 Contact with and (suspected) exposure to COVID-19; I50.9 Heart failure, unspecified; E66.9 Obesity, unspecified; I48.0 Paroxysmal atrial fibrillation; Q20.5 Discordant atrioventricular connection; Z79.01 Long term (current) use of anticoagulants; Z79.899 Other long term (current) drug therapy; Z95.0 Presence of cardiac pacemaker; Z88.0 Allergy status to penicillin
CPT/HCPCS: 36415; 36600; 71045; 71046; 71275; 76604; 80053; 81001; 82805; 83036; 83735; 83880; 84443; 84484; 85025; 85379; 85610; 85730; 87040; 87081; 87086; 93005; 93306; 96361; 96374; 96375; G0378; J0696; J2405; J3490

== ENCOUNTER 2022-12-16 01:43 | Emergency (ER) | payer MEDICAID ==
[~2022-12-16] VITALS: Ht 157.5 cm; Wt 70.5 kg
[~2022-12-16 01:43] MED LIST changes: +DAPA1TAB4 PO; +SPIR25TA8 PO
[2022-12-16 02:44] LABS: Basophils # (auto) 0 10 ^3/uL (0-0.2); Basophils % (auto) 0.3 % (0.0-2.0); Eosinophils # (auto) 0 10 ^3/uL (0-0.8); Eosinophils % (auto) 0.1 % (0.0-7.0); Hematocrit 47.6 % (36.0-46.0); Hemoglobin 16.1 g/dL (12.2-16.2); Lymphocytes # (auto) 0.8 10 ^3/uL (0.4-5.4); Mean Corpuscular Hgb Conc. 33.8 g/dL (32.0-36.0); Mean Corpuscular Volume 91.7 fL (80.0-100.0); Monocytes # (auto) 0.5 10 ^3/uL (0-1.3); Monocytes % (auto) 6.5 % (0.0-12.0); Neutrophils # (auto) 6.1 10 ^3/uL (1.6-8.6); Neutrophils % (auto) 82.1 % (37.0-80.0); Nucleated Red Blood Cells % 0.1 %; Red Blood Cells 5.19 10^6/uL (4.0-5.20); Red Cell Distribution Width 13.6 % (11.8-14.3); White Blood Cell 7.5 10^3/uL (4.4-10.8)
[2022-12-16 02:53] LABS: Alanine Aminotransferase 20 U/L (7-40); Albumin 4.5 g/dL (3.2-4.8); Alkaline Phosphatase 56 U/L (46-116); Anion Gap 8 (5-15); Aspartate Aminotransferase 10 U/L (13-40); BUN/Creatinine Ratio 10.6 (10.0-20.0); Bilirubin, Total 1.1 mg/dL (0.2-1.0); Blood Urea Nitrogen 10 mg/dL (9-23); Calcium 9.2 mg/dL (8.7-10.4); Carbon Dioxide 20 mmol/L (20-30); Chloride 106 mmol/L (98-107); Glucose 105 mg/dL (74-106); Magnesium 1.9 mg/dL (1.6-2.6); Sodium 134 mmol/L (136-145); Total Protein 7.4 g/dL (5.7-8.2)
[2022-12-16 03:37] LABS: Urine Bacteria FEW /hpf (None Seen); Urine Blood Negative /uL (Negative); Urine Clarity Clear (Clear); Urine Color Yellow (Yellow); Urine Protein, UAD Negative (Negative); Urine Specific Gravity 1.032 (1.001-1.035); Urine Urobilinogen Normal (Negative); Urine WBC 6 /hpf (0 - 5); Urine pH 5.5 (5.0-8.0)
[2022-12-16] MEDS ORDERED: ASPirin 325 MG TAB PO ONE (07:15)
[2022-12-16 07:47] VITALS: PULSE 65; RESP 15; O2SAT 94
[2022-12-16 08:43] VITALS: BP 113/54; PULSE 73; RESP 18; TEMP 97.8; O2SAT 96
== END 2022-12-16 08:44 | disposition home or self-care (01) ==
LOC: ER 01:43
DX: R07.89 Other chest pain (principal); I10 Essential (primary) hypertension; E11.9 Type 2 diabetes mellitus without complications; E78.5 Hyperlipidemia, unspecified; Z88.0 Allergy status to penicillin
CPT/HCPCS: 36415; 71045; 80053; 81001; 83735; 84484; 85025; 85379; 93005

== ENCOUNTER 2023-03-02 17:36 | Inpatient (IN) | payer MEDICAID ==
[~2023-03-02] VITALS: Ht 157.5 cm; Wt 74.1 kg
[2023-03-02] MEDS ORDERED: ONDANSETRON HCL 4 MG/2 ML VIAL IV ONE (18:45)
[2023-03-02 19:04] LABS: Basophils # (auto) 0 10 ^3/uL (0-0.2); Basophils % (auto) 0.2 % (0.0-2.0); Eosinophils # (auto) 0 10 ^3/uL (0-0.8); Hematocrit 40.3 % (36.0-46.0); Lymphocytes # (auto) 0.5 10 ^3/uL (0.4-5.4); Mean Corpuscular Hemoglobin 30.1 pg (28.0-32.0); Mean Corpuscular Hgb Conc. 32.3 g/dL (32.0-36.0); Mean Corpuscular Volume 93.1 fL (80.0-100.0); Monocytes # (auto) 0.5 10 ^3/uL (0-1.3); Monocytes % (auto) 8.8 % (0.0-12.0); Neutrophils # (auto) 4.2 10 ^3/uL (1.6-8.6); Red Blood Cells 4.32 10^6/uL (4.0-5.20); Red Cell Distribution Width 13.9 % (11.8-14.3); White Blood Cell 5.2 10^3/uL (4.4-10.8)
[2023-03-02 19:17] LABS: INR 1.1 (0.9-1.15); Partial Thromboplastin Time 24.6 SEC (24.5-34.5); Prothrombin Time 11.5 sec (9.3-11.8)
[2023-03-02 19:20] LABS: Alanine Aminotransferase 15 U/L (7-40); Albumin 3.6 g/dL (3.2-4.8); Alkaline Phosphatase 43 U/L (46-116); Anion Gap 8 (5-15); Aspartate Aminotransferase 8 U/L (13-40); BUN/Creatinine Ratio 40.5 (10.0-20.0); Blood Urea Nitrogen 32 mg/dL (9-23); Calcium 7.7 mg/dL (8.7-10.4); Carbon Dioxide 22 mmol/L (20-30); Chloride 112 mmol/L (98-107); Glucose 114 mg/dL (74-106); Magnesium 1.9 mg/dL (1.6-2.6); Sodium 142 mmol/L (136-145)
[2023-03-02 19:21] LABS: Bilirubin, Total 0.2 mg/dL (0.2-1.0); Total Protein 5.4 g/dL (5.7-8.2)
[2023-03-02 20:00] VITALS: PULSE 70; RESP 15; O2SAT 96
[2023-03-02] MEDS ORDERED: PANTOPRAZOLE 80 MG in SODIUM CHL 0.9% 100 ML IV ONE (20:15)
[2023-03-02] MEDS ORDERED: AZITHROMYCIN 500MG/ 250ML 250 ML IV ONE (20:15)
[2023-03-02] MEDS ORDERED: HYDROmorphone HCL 2 MG/ML VL/or syr IV ONE (20:15)
[2023-03-02] MEDS ORDERED: PANTOPRAZOLE 40 MG/10 ML VIAL INJ IV ONE ×2 (20:15→22:20)
[2023-03-02] MEDS ORDERED: SODIUM CHLORIDE 0.9% 1,000 ML IVB ONE (20:15)
[2023-03-02] MEDS ORDERED: cefTRIAXone 1GM/50ML D5W 50 ML IV ONE (20:15)
[2023-03-02] MEDS ORDERED: METOCLOPRAMIDE HCL 5MG/ml INJ 2ml VIAL IV ONE (20:15)
[2023-03-02 20:46] LABS: Anisocytosis Slight; Large Platelets FEW; Platelet Estimate Decreased
[2023-03-02] MEDS ORDERED: IOHEXOL 300 MG/ML 100ML BOTTLE IJ ONE (20:56)
[2023-03-02 21:38] LABS: COVID19 ANTIGEN SOFIA FIA NEGATIVE (NEGATIVE); Rapid Influenza A Negative (Negative); Rapid Influenza B Negative (Negative)
[2023-03-02 21:56] LABS: Urine Bacteria NONE SEEN /hpf (None Seen); Urine Blood 3+ /uL (Negative); Urine Clarity Clear (Clear); Urine Color PINK (Yellow); Urine Mucus FEW (None Seen); Urine Protein, UAD 1+ (Negative); Urine Specific Gravity 1.022 (1.001-1.035); Urine Urobilinogen Normal (Negative); Urine WBC 5 /hpf (0 - 5); Urine pH 6.5 (5.0-8.0)
[2023-03-02] MEDS ORDERED: PANTOPRAZOLE 40mg/50ML NS AE 50 ML IV ONE (22:30)
[2023-03-02] MEDS ORDERED: HYDROmorphone HCL 2 MG/ML VL/or syr IV PRN (23:30)
[2023-03-02] MEDS ORDERED: ONDANSETRON HCL 4 MG/2 ML VIAL IV PRN (23:30)
[2023-03-02] MEDS ORDERED: HYDROcodone-ACET 5/325MG TAB PO PRN (23:30)
[2023-03-02] MEDS ORDERED: ACETAMINOPHEN 325 MG TAB PO PRN (23:30)
[2023-03-02] MEDS ORDERED: NITROGLYCERIN 0.4 MG SL TAB SL PRN (23:30)
[2023-03-02] MEDS ORDERED: DEXTROSE (50%) 50ML SYRG IV PRN (23:30)
[2023-03-02] MEDS ORDERED: MORPHINE SULFATE INJ 2 MG/ml SYRG IV PRN (23:30)
[2023-03-03] MEDS: ACCU-CHEK COMFORT CURVE STRIP VI SCH ×5 (00:19→23:44)
[2023-03-03] MEDS ORDERED: levoFLOXacin 500MG 100 ML IV ONE (01:30)
[2023-03-03] MEDS ORDERED: CALCIUM GLUC 1,000mg/50ml-NS 50 ML IV ONE (03:15)
[2023-03-03] MEDS: InsuLIN REG 1unit/0.01ml Soln (100units/ml) SC SCH ×6 (05:35→23:44)
[2023-03-03 05:36] LABS: Basophils # (auto) 0 10 ^3/uL (0-0.2); Basophils % (auto) 0.2 % (0.0-2.0); Eosinophils # (auto) 0 10 ^3/uL (0-0.8); Eosinophils % (auto) 0.1 % (0.0-7.0); Hematocrit 34.9 % (36.0-46.0); Hemoglobin 11.5 g/dL (12.2-16.2); Lymphocytes # (auto) 1.9 10 ^3/uL (0.4-5.4); Lymphocytes % (auto) 38.2 % (10.0-50.0); Mean Corpuscular Hemoglobin 30.1 pg (28.0-32.0); Mean Corpuscular Volume 91.2 fL (80.0-100.0); Monocytes # (auto) 0.8 10 ^3/uL (0-1.3); Monocytes % (auto) 15.7 % (0.0-12.0); Neutrophils # (auto) 2.3 10 ^3/uL (1.6-8.6); Neutrophils % (auto) 45.8 % (37.0-80.0); Nucleated Red Blood Cells % 0.1 %; Red Blood Cells 3.82 10^6/uL (4.0-5.20); Red Cell Distribution Width 13.4 % (11.8-14.3)
[2023-03-03 05:56] LABS: Alanine Aminotransferase 13 U/L (7-40); Albumin 3.7 g/dL (3.2-4.8); Alkaline Phosphatase 38 U/L (46-116); Anion Gap 8 (5-15); Aspartate Aminotransferase < 8 U/L (13-40); BUN/Creatinine Ratio 34.9 (10.0-20.0); Bilirubin, Total 0.2 mg/dL (0.2-1.0); Blood Urea Nitrogen 22 mg/dL (9-23); Calcium 8.3 mg/dL (8.5-10.1); Carbon Dioxide 21 mmol/L (20-30); Chloride 113 mmol/L (98-107); Potassium 3.7 mmol/L (3.5-5.1); Sodium 142 mmol/L (136-145); Total Protein 5.6 g/dL (5.7-8.2)
[2023-03-03 06:11] LABS: Glucose 85 mg/dL (74-106)
[2023-03-03 07:45] VITALS: PULSE 70; RESP 18; O2SAT 98
[2023-03-03] MEDS ORDERED: PANTOPRAZOLE 40 MG/10 ML VIAL INJ IV SCH (10:00)
[2023-03-03] MEDS ORDERED: APIXABAN 5 MG TAB PO SCH (10:00)
[2023-03-03] MEDS ORDERED: SODIUM CHLORIDE 0.9% 500 ML IV ONE (12:15)
[2023-03-03] MEDS ORDERED: cefTRIAXone 1GM/50ML D5W 50 ML IV ONE (13:15)
[2023-03-03] MEDS: SODIUM CHLORIDE 0.9% 1,000 ML IV SCH ×2 (13:20→22:15)
[2023-03-03] MEDS ORDERED: BENZ200C64 PO (19:52)
[2023-03-03 20:00] VITALS: PULSE 70
[2023-03-03 22:00] VITALS: BP 105/47; PULSE 70; RESP 16; TEMP 97.9; O2SAT 96
[2023-03-03] MEDS: PANTOPRAZOLE 40 MG/10 ML VIAL INJ IV SCH (22:00)
[2023-03-03] MEDS ORDERED: levoFLOXacin 500MG 100 ML IV SCH (22:00)
[2023-03-04 05:00] VITALS: BP 105/61; PULSE 69; RESP 14; TEMP 97.1; O2SAT 95
[2023-03-04] MEDS: ACCU-CHEK COMFORT CURVE STRIP VI SCH ×4 (06:31→22:53)
[2023-03-04] MEDS: InsuLIN REG 1unit/0.01ml Soln (100units/ml) SC SCH ×4 (06:31→22:53)
[2023-03-04 06:49] LABS: Basophils # (auto) 0 10 ^3/uL (0-0.2); Basophils % (auto) 0.4 % (0.0-2.0); Eosinophils # (auto) 0 10 ^3/uL (0-0.8); Eosinophils % (auto) 0.5 % (0.0-7.0); Hematocrit 33.8 % (36.0-46.0); Hemoglobin 10.9 g/dL (12.2-16.2); Lymphocytes # (auto) 1.6 10 ^3/uL (0.4-5.4); Lymphocytes % (auto) 36.9 % (10.0-50.0); Mean Corpuscular Hemoglobin 29.4 pg (28.0-32.0); Mean Corpuscular Hgb Conc. 32.3 g/dL (32.0-36.0); Mean Corpuscular Volume 91.3 fL (80.0-100.0); Monocytes # (auto) 0.3 10 ^3/uL (0-1.3); Monocytes % (auto) 7.7 % (0.0-12.0); Neutrophils # (auto) 2.4 10 ^3/uL (1.6-8.6); Neutrophils % (auto) 54.5 % (37.0-80.0); Red Cell Distribution Width 13.6 % (11.8-14.3); White Blood Cell 4.5 10^3/uL (4.4-10.8)
[2023-03-04 07:16] LABS: Alanine Aminotransferase 12 U/L (7-40); Albumin 3.6 g/dL (3.2-4.8); Alkaline Phosphatase 37 U/L (46-116); Anion Gap 8 (5-15); Aspartate Aminotransferase 9 U/L (13-40); BUN/Creatinine Ratio 23.1 (10.0-20.0); Bilirubin, Total 0.3 mg/dL (0.2-1.0); Blood Urea Nitrogen 15 mg/dL (9-23); Calcium 8.4 mg/dL (8.7-10.4); Carbon Dioxide 22 mmol/L (20-30); Chloride 112 mmol/L (98-107); Glucose 73 mg/dL (74-106); Potassium 3.6 mmol/L (3.5-5.1); Sodium 142 mmol/L (136-145)
[2023-03-04 07:17] LABS: Total Protein 5.6 g/dL (5.7-8.2)
[2023-03-04 08:00] VITALS: BP 87/48; PULSE 70; RESP 20; TEMP 97.4; O2SAT 100
[2023-03-04] MEDS: SODIUM CHLORIDE 0.9% 1,000 ML IV SCH ×2 (08:15→18:02)
[2023-03-04] MEDS: cefTRIAXone 1GM/50ML D5W 50 ML IV SCH (08:34)
[2023-03-04] MEDS: PANTOPRAZOLE 40 MG/10 ML VIAL INJ IV SCH ×2 (09:32→22:51)
[2023-03-04] MEDS ORDERED: levoFLOXacin 500MG 100 ML IV SCH (10:00)
[2023-03-04 12:00] VITALS: BP 108/51; PULSE 75; RESP 20; TEMP 98; O2SAT 96
[2023-03-04 16:00] VITALS: BP 87/37; PULSE 71; RESP 20; TEMP 97.8; O2SAT 93; O2SAT 98
[2023-03-04 20:00] VITALS: PULSE 70
[2023-03-04 22:00] VITALS: BP 94/52; PULSE 68; RESP 16; TEMP 98.3; O2SAT 95
[2023-03-05] MEDS: SODIUM CHLORIDE 0.9% 1,000 ML IV SCH (04:15)
[2023-03-05 05:00] VITALS: BP 95/56; PULSE 69; RESP 16; TEMP 97.5; O2SAT 100
[2023-03-05] MEDS: InsuLIN REG 1unit/0.01ml Soln (100units/ml) SC SCH ×2 (06:00→12:00)
[2023-03-05] MEDS: ACCU-CHEK COMFORT CURVE STRIP VI SCH ×2 (06:20→12:05)
[2023-03-05 06:56] LABS: Basophils # (auto) 0 10 ^3/uL (0-0.2); Basophils % (auto) 0.5 % (0.0-2.0); Eosinophils # (auto) 0 10 ^3/uL (0-0.8); Eosinophils % (auto) 0.6 % (0.0-7.0); Hematocrit 31.3 % (36.0-46.0); Hemoglobin 10.4 g/dL (12.2-16.2); Lymphocytes # (auto) 1.9 10 ^3/uL (0.4-5.4); Mean Corpuscular Hemoglobin 30.1 pg (28.0-32.0); Mean Corpuscular Hgb Conc. 33.3 g/dL (32.0-36.0); Mean Corpuscular Volume 90.3 fL (80.0-100.0); Monocytes # (auto) 0.3 10 ^3/uL (0-1.3); Monocytes % (auto) 7.9 % (0.0-12.0); Neutrophils # (auto) 1.9 10 ^3/uL (1.6-8.6); Nucleated Red Blood Cells % 0.2 %; Red Blood Cells 3.47 10^6/uL (4.0-5.20); Red Cell Distribution Width 13.5 % (11.8-14.3); White Blood Cell 4.2 10^3/uL (4.4-10.8)
[2023-03-05 08:00] VITALS: PULSE 65; PULSE 70; RESP 19; O2SAT 97
[2023-03-05] MEDS: cefTRIAXone 1GM/50ML D5W 50 ML IV SCH (08:43)
[2023-03-05 08:50] VITALS: BP 103/56; PULSE 65; RESP 19; TEMP 97.9; O2SAT 97
[2023-03-05] MEDS: PANTOPRAZOLE 40 MG/10 ML VIAL INJ IV SCH (09:21)
[2023-03-05 13:00] VITALS: BP 100/56; PULSE 70; RESP 20; TEMP 97.8; O2SAT 95
[2023-03-05 13:35] VITALS: BP 100/56; PULSE 70; RESP 20; TEMP 97.8; O2SAT 95
== END 2023-03-05 14:10 | disposition home or self-care (01) | DRG 242 ==
LOC: ER 17:36 → EDUNIT# 17:36 → EDBD 17:36 → TELE 23:31 → TELE-WESTW 03-03 18:51
PROVIDERS: ADMIT Nurse Practitioner Family; ATTEND Internal Medicine Geriatric Medicine
DX: K22.11 Ulcer of esophagus with bleeding (principal); Q20.3 Discordant ventriculoarterial connection; D69.6 Thrombocytopenia, unspecified; D62 Acute posthemorrhagic anemia; E83.51 Hypocalcemia; E86.1 Hypovolemia; I48.91 Unspecified atrial fibrillation; E66.9 Obesity, unspecified; E11.9 Type 2 diabetes mellitus without complications; Z20.822 Contact with and (suspected) exposure to COVID-19; I10 Essential (primary) hypertension; N39.0 Urinary tract infection, site not specified; Z79.01 Long term (current) use of anticoagulants; Z88.0 Allergy status to penicillin; Z95.0 Presence of cardiac pacemaker; Q24.9 Congenital malformation of heart, unspecified; Z68.29 Body mass index [BMI] 29.0-29.9, adult
CPT/HCPCS: 36415; 71045; 74177; 80053; 81001; 82962; 83605; 83690; 83735; 83880; 84484; 85025; 85610; 85730; 86850; 86900; 86901; 87040; 87086; 87426; 87804; 93005; 93306; 96361; 96365; 96375; 99291; C9113; G0378; J0696; J1956; J2405

== ENCOUNTER 2023-10-18 08:48 | Emergency (ER) | payer MEDICAID ==
[~2023-10-18] VITALS: Ht 170.2 cm; Wt 72.5 kg
[~2023-10-18 08:48] MED LIST changes: +BENZ200C64 PO
[2023-10-18] MEDS: KETOROLAC TROMETH 60MG/2ML VIAL IM ONE (10:53)
[2023-10-18] MEDS ORDERED: ACET-1080 PO (10:57)
[2023-10-18] MEDS ORDERED: TOB03OS OP (10:57)
[2023-10-18 11:24] VITALS: BP 106/50; PULSE 70; RESP 18; TEMP 98; O2SAT 98
== END 2023-10-18 11:25 | disposition home or self-care (01) ==
LOC: ER 08:48
DX: M23.8X1 Other internal derangements of right knee (principal); H10.31 Unspecified acute conjunctivitis, right eye; E11.9 Type 2 diabetes mellitus without complications; E78.5 Hyperlipidemia, unspecified; I10 Essential (primary) hypertension; Z88.0 Allergy status to penicillin
CPT/HCPCS: 73562; 96372; 99283; J1885

== ENCOUNTER 2023-12-18 00:17 | Emergency (ER) | payer MEDICAID ==
[~2023-12-18] VITALS: Ht 157.5 cm; Wt 75.8 kg
[~2023-12-18 00:17] MED LIST changes: +ACET-1080 PO; +TOB03OS OP
[2023-12-18] MEDS ORDERED: ACET500T58 PO (02:51)
[2023-12-18] MEDS ORDERED: CEPH500C PO (02:51)
[2023-12-18] MEDS: ONDANSETRON ODT 4 MG TAB PO ONE (03:01)
[2023-12-18] MEDS: HYDROcodone-ACET 5/325MG TAB PO ONE (03:02)
[2023-12-18] MEDS: TETANUS-DIPTH-ACEL PERTUSSIS 0.5ML SYR Tdap IM ONE (03:07)
[2023-12-18 03:20] VITALS: BP 116/68; PULSE 74; RESP 18; TEMP 97.9; O2SAT 98
[2023-12-18] MEDS ORDERED: CLIN1CAP70 PO (03:27)
[2023-12-18] MEDS: ceFAZolin 1GM/50ML 50 ML IV ONE ×2 (04:08→04:57)
== END 2023-12-18 05:30 | disposition home or self-care (01) ==
LOC: ER 00:17
DX: S62.631A Displaced fracture of distal phalanx of left index finger, initial encounter for closed fracture (principal); E11.9 Type 2 diabetes mellitus without complications; I10 Essential (primary) hypertension; E78.5 Hyperlipidemia, unspecified; Z79.899 Other long term (current) drug therapy; Z98.890 Other specified postprocedural states; X58.XXXA Exposure to other specified factors, initial encounter; Y93.9 Activity, unspecified; Y92.89 Other specified places as the place of occurrence of the external cause; Y99.8 Other external cause status
CPT/HCPCS: 12001; 29130; 73130; 90471; 90715; 96365; 96366; 99284; J0690; Q0162

== ENCOUNTER 2024-01-22 13:52 | Emergency (ER) | payer MEDICAID ==
[~2024-01-22] VITALS: Ht 157.5 cm; Wt 75.0 kg
[~2024-01-22 13:52] MED LIST changes: +ACET500T58 PO; +CLIN1CAP70 PO
[2024-01-22 14:16] LABS: Eosinophils # (auto) 0 10 ^3/uL (0-0.8); Mean Corpuscular Volume 76.8 fL (80.0-100.0)
[2024-01-22 14:17] LABS: Basophils # (auto) 0 10 ^3/uL (0-0.2); Basophils % (auto) 0.5 % (0.0-2.0); Eosinophils % (auto) 0.3 % (0.0-7.0); Hematocrit 40.6 % (36.0-46.0); Lymphocytes # (auto) 2.6 10 ^3/uL (0.4-5.4); Lymphocytes % (auto) 28.9 % (10.0-50.0); Mean Corpuscular Hemoglobin 24.7 pg (28.0-32.0); Mean Corpuscular Hgb Conc. 32.1 g/dL (32.0-36.0); Monocytes # (auto) 1.1 10 ^3/uL (0-1.3); Monocytes % (auto) 11.9 % (0.0-12.0); Neutrophils # (auto) 5.3 10 ^3/uL (1.6-8.6); Neutrophils % (auto) 58.4 % (37.0-80.0); Nucleated Red Blood Cells % 0.2 %; Platelet Count (auto) 177 10^3/uL (140-450); Red Blood Cells 5.28 10^6/uL (4.0-5.20); Red Cell Distribution Width 14.8 % (11.8-14.3)
[2024-01-22 14:26] LABS: Alanine Aminotransferase 29 U/L (7-40); Albumin 4.7 g/dL (3.2-4.8); Alkaline Phosphatase 77 U/L (46-116); Anion Gap 8 (5-15); Aspartate Aminotransferase 15 U/L (13-40); BUN/Creatinine Ratio 13.4 (10.0-20.0); Bilirubin, Total 0.4 mg/dL (0.2-1.0); Blood Urea Nitrogen 11 mg/dL (9-23); Carbon Dioxide 24 mmol/L (20-31); Chloride 106 mmol/L (98-107); Glucose 105 mg/dL (74-106); Potassium 3.8 mmol/L (3.5-5.1); Sodium 138 mmol/L (136-145); Total Protein 7.9 g/dL (5.7-8.2)
[2024-01-22] MEDS: ACETAMINOPHEN 325 MG TAB PO ONE (15:15)
[2024-01-22 16:17] LABS: Urine Bacteria None Seen /hpf (None Seen)
[2024-01-22 16:20] VITALS: BP 112/58; PULSE 69; RESP 16; TEMP 98.3; O2SAT 96
[2024-01-22 16:33] LABS: Urine Blood 2+ /uL (Negative); Urine Clarity Clear (Clear); Urine Color Light-Yellow (Yellow); Urine Mucus FEW (None Seen); Urine Protein, UAD Negative (Negative); Urine Specific Gravity 1.019 (1.001-1.035); Urine Urobilinogen Normal (Negative); Urine WBC 1 /hpf (0 - 5); Urine pH 5.5 (5.0-9.0)
== END 2024-01-22 17:30 | disposition home or self-care (01) ==
LOC: ER 13:52
DX: R07.89 Other chest pain (principal); R06.02 Shortness of breath; E11.9 Type 2 diabetes mellitus without complications; I10 Essential (primary) hypertension; E78.5 Hyperlipidemia, unspecified; Z95.0 Presence of cardiac pacemaker; Z79.899 Other long term (current) drug therapy; Z88.0 Allergy status to penicillin
CPT/HCPCS: 36415; 71045; 80053; 81001; 83880; 84484; 85025; 85379; 93005

== ENCOUNTER 2024-11-03 20:34 | Inpatient (IN) | payer MEDICAID ==
[~2024-11-03] VITALS: Ht 157.5 cm; Wt 81.0 kg
--- NOTE | 2024-11-03 21:42 | ED.PDOC ---
HPI Comments 44-year-old female with a history of hypertension, CHF, hyperlipidemia, and a pacemaker presents to the ED with a chief complaint of left-sided intermittent chest pain w/ associated left arm numbness, nausea, and dizziness. Prior patient states to her chest pain started yesterday in the since found no alleviating factors at this time. Patient notes on taking metoprolol, Eliquis Lasix and lisinopril at this time. Patient's EKG was noted to be 70 atrial paced rhythm with a right bundle branch block with nonspecific T-wave changes. Patient denies any headache, vomiting, diarrhea, abdominal pain, back pain, neck pain, diaphoresis, or any other associated symptoms, modifiers at this time. PHYSICAL EXAM: General: Awake, alert and oriented. Mild distress. Skin: Skin in warm, dry and intact. Appropriate color for ethnicity. HEENT: The head is normocephalic and atraumatic. Conjunctivae are clear without exudates or hemorrhage. Sclera is non-icteric. EOM are intact. No signs of nystagmus. Eyelids are normal in appearance without swelling or lesions. Oral mucosa is pink and moist Neck: The neck is supple with normal range of motion. No JVD. Cardiac: Heart rate and rhythm are normal. No murmurs, gallops, or rubs are auscultated. Respiratory: No signs of respiratory distress. Lung sounds are clear in all lobes bilaterally without rales, rhonchi, or wheezes. Abdominal: Abdomen is soft, non-tender without distention, guarding or rigidity. Bowel sounds are present and normoactive in all four quadrants. Extremities: Upper and lower extremities are atraumatic in appearance without d eformity or edema. Neurological: The patient is awake, alert and oriented to person, place, and time with normal speech. Speech is clear. There is no facial asymmetry. Sensation and strength intact. Psychiatric: Appropriate mood and affect. Good judgement and insight. REVIEW OF SYSTEMS: General: No fever, no chills, or fatigue HEENT: No sore throat, no earache, no congestion, no neck pain. Cardiac: + chest pain. No palpitations. Lungs: No shortness of breath, no cough. GI: + nausea, no vomiting, no diarrhea, no constipation, no abdominal pain : No dysuria, frequency, or urgency. No hematuria. Musculoskeletal: No joint pain , no joint swelling, no extremity edema. Skin: No rash, no itching. Neuro: No headache, no dizziness, no weakness Chief Complaint: Chest Pain Time Seen by MD: 21:37 Primary Care Provider: HAIDER Reviewed Notes: Nurses Notes, Medications, Allergies Allergies: Coded Allergies: Clindamycin (Verified Allergy, Unknown, 11/03/24) Penicillins (Verified Allergy, Unknown, 06/28/19) Home Meds Active Scripts Clindamycin Hcl (Clindamycin Hcl) 300 Mg Cap, 1 CAP PO TID for 7 Days, #21 CAP 0 Refills Prov:MONA JOHNSON 12/18/23 Acetaminophen (Acetaminophen) 500 Mg Tab, 500 MG PO Q4HPRN, #30 TAB 0 Refills Prov:MONA JOHNSON 12/18/23 Tobramycin Sulfate (Tobrex) [address], 2 DROP OP QID, #5 ML Prov:JOYCE HOOK 10/18/23 Acetaminophen (Tylenol 8 Hour Arthritis) 650 Mg Tab, 650 MG PO TID, #30 TAB Prov:JOYCE HOOK 10/18/23 Nitrofurantoin Monohydrate Mac (Macrobid) 100 Mg Cap, 100 MG PO BID for 7 Days, #14 CAP Prov:TULIO LOPEZ MD 11/14/21 Potassium Chloride (Potassium Chloride ER) 20 Meq Tab, 20 MEQ PO DAILY, #30 MG To be taken only only if you are on diuretics (that is hydrochlorothiazide). Prov:SHIRA VAZ MD 07/17/21 Ciprofloxacin Hcl (Cipro) 500 Mg Tab, 1 TAB PO BID, #10 TAB Prov:SHIRA VAZ MD 07/17/21 Hctz (Hydrochlorothiazide) 25 Mg Tab, 25 MG PO BID, #30 MG Hold for systolic blood pressure less than 100 Prov:SHIRA VAZ MD 07/17/21 Atenolol (Atenolol) 25 Mg Tab, 25 MG PO DAILY, #30 MG Prov:LARRY PLUMMER MD 04/02/21 Reported Medications Benzonatate (Benzonatate) 200 Mg Cap, 1 CAP PO TID 03/03/23 Dapagliflozin Propanediol (Farxiga) 10 Mg Tab, 10 MG PO, TAB 12/11/21 Spironolactone (Spironolactone) 25 Mg Tab, TAB PO DAILY, #90 TAB 1 Refill 12/11/21 Amiodarone Hcl (Amiodarone Hcl) 200 Mg Tab, 200 MG PO Q12HR for 30 Days 04/01/21 Apixaban Base (ELIQUIS) 5 Mg Tab, 5 MG PO BID, TAB 04/01/21 Information Source: Patient Mode of Arrival: Ambulatory Severity: Mild Timing: Hours Duration: Since onset, Hours Prehospital treatment: None Location: Chest (L) Radiation: Arm (L) Quality: Sharp, Pressure Onset: At Rest Cardiac Risk Factors: HTN PE Risk Factors: None History of: None Modifying Factors: Exertion Associated Signs and Symptoms: None Past Medical History PAST MEDICAL HISTORY: DM, High Lipids, HTN Surgical History: Pacemaker TESTER [employer] PACK[employer] History: No Pertinent TESTER [employer]ACK[employer] History Family History Family History: Unknown Social History Smoker: Non-Smoker Alcohol: Denies ETOH Use Drugs: Denies Drug Use Lives In: Home EKG EKG : Pulse Rate (adult): 70 Rembrandt: Normal Cardiac Rhythm: NSR Block: LBBB ST: Normal Comments Nonspecific T-wave changes. No STEMI Was a procedure done? Was a procedure done?: No CP Differential Dx Differential Diagnosis: A-fib, Angina, Anxiety / Panic Attack, Atrial Dysr hythmia, Electrolyte Disorder, Heart Failure, Pacemaker Malfunction, Pulmonary Embolus, Sinus Tachycardia Differential Diagnosis: CHF, HTN Accelerated, HTN Encephalopathy Differential Diagnosis: Angina, Chest Wall Pain, Costochondritis, Esophageal reflux/spasm, Myocardial Infarction, Pericarditis, Pneumonia, Pneumothorax, Pulmonary Embolus X-Ray, Labs, Meds, VS Vital Signs Date Time Temp Pulse Resp B/P (MAP) Pulse Ox O2 Delivery O2 Flow Rate FiO2 11/03/24 22:08 70 11/03/24 21:42 70 11/03/24 20:40 70 11/03/24 20:36 98.0 70 16 112/50 98 98.0 Lab Test 11/04/24 00:13 11/03/24 21:42 11/03/24 20:50 Range/Units Troponin I High Sensitivity 3 L < 3 L < 3 L </=34 ng/L White Blood Count 6.8 4.4-10.8 10^3/uL Red Blood Count 4.90 4.0-5.20 10^6/uL Hemoglobin 14.2 12.2-16.2 g/dL Hematocrit 42.9 36.0-46.0 % Mean Corpuscular Volume 87.5 80.0-100.0 fL Mean Corpuscular Hemoglobin 28.9 28.0-32.0 pg Mean Corpuscular Hemoglobin Concent 33.0 32.0-36.0 g/dL Red Cell Distribution Width 17.3 H 11.8-14.3 % Platelet Count 130 L 140-450 10^3/uL Mean Platelet Volume 11.2 H 6.9-10.8 fL Neutrophils (%) (Auto) 46.0 37.0-80.0 % Lymphocytes (%) (Auto) 43.4 10.0-50.0 % Monocytes (%) (Auto) 9.9 0.0-12.0 % Eosinophils (%) (Auto) 0.4 0.0-7.0 % Basophils (%) (Auto) 0.3 0.0-2.0 % Neutrophils # (Auto) 3.1 1.6-8.6 10 ^3/uL Lymphocytes # (Auto) 3.0 0.4-5.4 10 ^3/uL Monocytes # (Auto) 0.7 0-1.3 10 ^3/uL Eosinophils # (Auto) 0 0-0.8 10 ^3/uL Basophils # (Auto) 0 0-0.2 10 ^3/uL Nucleated Red Blood Cells 0.1 % Sodium Level 141 136-145 mmol/L Potassium Level 3.3 L 3.5-5.1 mmol/L Chloride Level 104 98-107 mmol/L Carbon Dioxide Level 26 20-31 mmol/L Anion Gap 11 5-15 Blood Urea Nitrogen 13 9-23 mg/dL Creatinine 0.87 0.550-1.02 mg/dL Glomerular Filtration Rate Calc 85 >90 mL/min BUN/Creatinine Ratio 14.9 10.0-20.0 Serum Glucose 87 74-106 mg/dL Calcium Level 9.7 8.7-10.4 mg/dL B-Type Natriuretic Peptide 79.05 0-100 pg/mL Current Medications Medications (Trade) Dose Ordered Sig/Marli Route Start Time Stop Time Status Last Admin Ondansetron HCl (Zofran) 4 mg ONCE ONCE IV 11/03/24 21:30 11/03/24 21:31 DC 11/04/24 02:04 Potassium Chloride (Klor-Con Tablet) 40 meq ONCE ONCE PO 11/04/24 00:15 11/04/24 00:20 DC 11/04/24 02:00 PATIENT: KRISTINA MATOS ACCT: [id number] UNIT: [id number] : 1980 LOC: ER ROOM / BED: / AGE / SEX: 44 / F ADM STATUS: REG ER SERVICE 19 ORDERING PHYSICIAN: LETTY CASTILLO MD PROCEDURE(s): CXR1 - CHEST XRAY 1 VIEW REASON: cp ORDER NUMBER(s): [id number], ACCESSION NUMBER(s): [id number] CHEST RADIOGRAPH REASON FOR EXAM: Chest pain COMPARISON: XY CHEST XRAY 1 VIEW on DOS: 01/22/24, XY CHEST PORTABLE on DOS: 03/02/23, XY CHEST PORTABLE on DOS: 12/16/22, CHEST XRAY 1 VIEW on DOS: 12/12/21, CHEST TWO VIEWS ROUTINE on DOS: 12/10/21 TECHNIQUE: One view of the chest is provided FINDINGS: The cardiomediastinal silhouette is stably enlarged. There is a cardiac pacer. There is bibasilar airspace disease likely representing atelectasis. There is no pneumothorax. There is no significant pleural effusion. IMPRESSION: Stable cardiomegaly. Bibasilar airspace disease likely represents atelectasis. Time of 1ST Reevaluation: 22:08 Reevaluation 1ST: Unchanged Patient Education/Counseling: Diagnosis, Treatment, Need For Follow Up Family Education/Counseling: No Family Present SEPSIS Sepsis Screen Date sepsis recognized/suspect: Nov 03, 2024 Time Sepsis recognized/suspect: 2035 Recent Procedure: No On Antibiotic Therapy: No Respiratory Rate >20: No Heart Rate >90: No Temp<36 C (96.8 F) or >38.3 C: No SBP <90 or MAP <65 mmHG: No New Acute Mental Status Change: No Is the patient on CPAP, BIPAP,: No Physician Orders Electrocardigram (11/03/24 21:48) Electrocardigram (11/03/24 23:48) Urinalysis (11/03/24 20:53) Chest Xray 1 View (11/03/24 21:20) Vital Signs Q1HR (11/03/24 21:20) Titrate Oxygen (11/03/24 21:20) Oxygen (11/03/24 ) Continous Pulse Oximetry (11/03/24 21:20) Saline Lock (11/03/24 21:20) Mold Changer (11/03/24 ) Notify Md If Abnormal Vs (11/03/24 21:20) Vital Signs Date Time Temp Pulse Resp B/P (MAP) Pulse Ox O2 Delivery O2 Flow Rate FiO2 11/03/24 22:08 70 11/03/24 21:42 70 11/03/24 20:40 70 11/03/24 20:36 98.0 70 16 112/50 98 98.0 Laboratory Tests Test 11/03/24 20:50 White Blood Count 6.8 10^3/uL (4.4-10.8) Medications Medications Dose Ordered Sig/Marli Route Start Time Stop Time Status Last Admin Dose Admin Ondansetron HCl 4 mg ONCE ONCE IV 11/03/24 21:30 11/03/24 21:31 DC 11/04/24 02:04 Potassium Chloride 40 meq ONCE ONCE PO 11/04/24 00:15 11/04/24 00:20 DC 11/04/24 02:00 Departure 1 Departure Time of Disposition: 00:11 Impression: Primary Impression: Chest pain Disposition: ADMITTED INPATIENT Condition: Stable Comments MDM: 44-year-old female with multiple risk factors presents with ongoing chest pain Initial evaluation included thorough history, physical examination and appropriate diagnostic testing. Initial EKG and troponin negative for acute coronary syndrome Given the complexity of the case and need for further management patient is being admitted to the hospitalist service for further monitoring, treatment and evaluation. Risks, benefits and alternatives of admission and proposed interventions were discussed with the patient. Patient is in agreement with the plan. Extensive evaluation was performed in attempt to identify or rule out: (See differential diagnosis section) The following tests were ordered, and results were reviewed by me and discussed with patient: (See diagnostic results section) The following test were independently interpreted by me: EKG I reviewed and agreed with the following test results read by other providers: Chest x-ray I reviewed the following notes from the pt's past medical encounters: N/A Additional information was gathered from interviewing the following independent historians: N/A Discussion of management or test interpretation with external physician/other qualified health manager intensive care unit: N/A Decision regarding hospitalization or escalation of hospital level of care: Risk and benefits of admission for further treatment of patient's condition was considered. Due to patient's current clinical condition, high risk of decline and poor outcome if discharged and need for further inpatient management and monitoring, patient will be admitted to the hospital. Critical Care Note Critical Care Time?: No Stability Stability form required: No Heart Score Heart Score: Heart Score Response (Comments) Value History Moderate Suspicious 1 EKG Normal 0 Age <45 0 Risk Factors 1 or 2 risk factors 1 Troponin Normal limit 0 Total 2 I personally scribed for LETTY CASTILLO MD ([email or web address]) on 11/03/24 at 21:42. Electronically submitted by Kirk Romero ([email or web address]). LETTY CASTILLO MD Nov 03, 2024 21:42
[2024-11-03 21:45] LABS: Hematocrit 42.9 % (36.0-46.0); Hemoglobin 14.2 g/dL (12.2-16.2); Mean Corpuscular Hemoglobin 28.9 pg (28.0-32.0); Mean Corpuscular Volume 87.5 fL (80.0-100.0); Nucleated Red Blood Cells % 0.1 %
--- NOTE | 2024-11-03 21:57 | DVH ---
CHEST RADIOGRAPH REASON FOR EXAM: Chest pain COMPARISON: XY CHEST XRAY 1 VIEW on DOS: 01/22/24, XY CHEST PORTABLE on DOS: 03/02/23, XY CHEST PORTAB LE on DOS: 12/16/22, CHEST XRAY 1 VIEW on DOS: 12/12/21, CHEST TWO VIEWS ROUTINE on DOS: 12/10/21 TECHNIQUE: One view of the chest is provided FINDINGS: The cardiomediastinal silhouette is stably enlarged. There is a cardiac pacer. There is bib asilar airspace disease likely representing atelectasis. There is no pneumothorax. There is no signi ficant pleural effusion. IMPRESSION: Stable cardiomegaly. Bibasilar airspace disease likely represents atelectasis.
[2024-11-03 21:59] LABS: Chloride 104 mmol/L (98-107); Sodium 141 mmol/L (136-145)
[2024-11-03 22:00] LABS: Anion Gap 11 (5-15); Calcium 9.7 mg/dL (8.7-10.4); Carbon Dioxide 26 mmol/L (20-31)
[2024-11-03 22:05] LABS: BUN/Creatinine Ratio 14.9 (10.0-20.0); Blood Urea Nitrogen 13 mg/dL (9-23); Glucose 87 mg/dL (74-106)
[2024-11-03 22:06] LABS: Potassium 3.3 mmol/L (3.5-5.1)
--- NOTE | 2024-11-04 00:35 | ECG ---
[facility] Test Date: 2024-11-03 Test Time: 22:08:47 Pat Name: KRISTINA MATOS Department: ED Room: 0286T Gender: F Hotel Engineer: OBIE : 1980 Requested By: LETTY CASTILLO Order Number: [id number] Reading MD: Patrick Banegas Measurements Intervals Armstrong Rate: 70 P: 0 IL: 107 QRS: 121 QRSD: 118 T: 61 QT: 438 QTc: 473 Interpretive Statements Atrial-paced complexes Incomplete right bundle branch block Electronically Signed On 11-09-2024 22:35:29 PDT by Patrick Banegas Please click the below link to view image of tracing.
[2024-11-04] MEDS ORDERED: MORPHINE SULFATE INJ 2 MG/ml SYRG IV PRN (02:00)
[2024-11-04] MEDS ORDERED: NITROGLYCERIN 0.4 MG SL TAB SL PRN (02:00)
[2024-11-04] MEDS ORDERED: ONDANSETRON HCL 4 MG/2 ML VIAL IV PRN (02:00)
[2024-11-04] MEDS: POTASSIUM CHL 20 Meq TABLET PO ONE (02:00)
[2024-11-04] MEDS: ONDANSETRON HCL 4 MG/2 ML VIAL IV ONE (02:04)
[2024-11-04] MEDS: SODIUM CHLORIDE 0.9% 1,000 ML IV ONE (02:23)
--- NOTE | 2024-11-04 02:27 | DVHHPRES ---
History of Present Illness Resident Creating Document: EMANI ASHBY RESIDENT History of Present Illness Jaida Bernstein is a 44-year-old female with past medical history of congenital heart disease (TGA, corrected as ), hypertension, CHF, hyperlipidemia, A-fib and pacemaker (RBB). The patient presented to the ED with a chief complaint of chest pain 5/10, continue, pressure-like, irradiated to the left arm, associated with nausea, lightheaded, SOB, palpitations and dizziness. The chest pain start while at home doing chores, the pain did not improved after rest and increased to 8/10, this prompt her visit to the ED. Patient denies vomiting, diarrhea, abdominal pain, back pain, neck pain or any other symptoms. On initial evaluation the EKG showed pacemaker atrial rhythm with a right bundle branch block with nonspecific T-wave changes, Torponins 3, 3, 3. Patient will be admitted for further cardiac evaluation and management. Cardiovascular: HTN, hyperipidemia, Other (Congenital heart anomaly: TGA, corrected during infancy. 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 ) Family History: Hypertension Smoke: No ALCOHOL: none Drugs: None Lives: with Family Review of Systems Constitutional: No: Fever, Chills, Sweats, Weakness, Malaise, Other Eyes: No: Pain, Vision change, Conjunctivae inflammation, Eyelid inflammation, Other, Redness Respiratory: Shortness of breath; No: Cough, Dry, SOB with excertion, Wheezing, Hemoptysis, Pleuritic Pain, Sputum, Wheezing, Other Cardiovascular: Chest Pain, Palpitations, Lt Headedness; No: Orthopnea, Paroxysmal Noc. Dyspnea, Edema, Other Gastrointestinal: Nausea; No: Vomiting, Abdominal Pain, Diarrhea, Constipation, Melena, Hematochezia, Other Genitourinary: No Dysuria, No Frequency, No Incontinence, No Hematuria, No Retention, No Other Musculoskeletal: other (Left arm pain); No: neck pain, shoulder pain, arm pain, back pain, hand pain, leg pain, foot pain Skin: No: Rash, Lesions, Jaundice, Bruising, Other Neurological: No: Weakness, Numbness, Incoordination, Change in speech, Confusion, Seizures, Other Allergies: Coded Allergies: Clindamycin (Verified Allergy, Unknown, 11/03/24) Penicillins (Verified Allergy, Unknown, 06/28/19) Medications Current Medications Medications Dose Ordered Sig/Marli Route Start Time Stop Time Status Last Admin Dose Admin Acetaminophen/ Hydrocodone Bitart 1 tab Q4HP PRN PO 11/04/24 02:00 Ondansetron HCl 4 mg Q4HP PRN IV 11/04/24 02:00 Morphine Sulfate 2 mg Q4HPRN PRN IV 11/04/24 02:00 Morphine Sulfate 2 mg Q30M PRN IV 11/04/24 02:00 Nitroglycerin 0.4 mg Q5MINP PRN SL 11/04/24 02:00 Pantoprazole Sodium 40 mg DAILY PO 11/04/24 10:00 Exam Vital Signs Vital Signs Date Time Temp Pulse Resp B/P (MAP) Pulse Ox O2 Delivery O2 Flow Rate FiO2 11/04/24 02:18 97.5 70 20 126/57 (80) 99 97.5 General Appearance: Alert, Oriented X3, Cooperative, mild distress HEENT: Atraumatic, Mucous membr. moist/pink Respiratory: Clear to auscultation, Normal air movement Cardiovascular: Regular rate, Normal S1, Normal S2, No murmurs Abdominal: Normal bowel sounds, Soft, No tenderness, No hepatospenomegaly, No masses Extremities: No clubbing, No cyanosis, No edema, Normal pulses, No tenderness/swelling Skin: No rashes, No breakdown, No significant lesion Neuro: Normal gait, Normal speech, Strength at 5/5 X4 ext, Normal tone, Sensation intact Psych/Mental Status: Mental status NL, Mood NL Labs/Xrays Labs Test 11/04/24 00:13 11/03/24 20:50 Range/Units Troponin I High Sensitivity 3 L </=34 ng/L White Blood Count 6.8 4.4-10.8 10^3/uL Red Blood Count 4.90 4.0-5.20 10^6/uL Hemoglobin 14.2 12.2-16.2 g/dL Hematocrit 42.9 36.0-46.0 % Mean Corpuscular Volume 87.5 80.0-100.0 fL Mean Corpuscular Hemoglobin 28.9 28.0-32.0 pg Mean Corpuscular Hemoglobin Concent 33.0 32.0-36.0 g/dL Red Cell Distribution Width 17.3 H 11.8-14.3 % Platelet Count 130 L 140-450 10^3/uL Mean Platelet Volume 11.2 H 6.9-10.8 fL Neutrophils (%) (Auto) 46.0 37.0-80.0 % Lymphocytes (%) (Auto) 43.4 10.0-50.0 % Monocytes (%) (Auto) 9.9 0.0-12.0 % Eosinophils (%) (Auto) 0.4 0.0-7.0 % Basophils (%) (Auto) 0.3 0.0-2.0 % Neutrophils # (Auto) 3.1 1.6-8.6 10 ^3/uL Lymphocytes # (Auto) 3.0 0.4-5.4 10 ^3/uL Monocytes # (Auto) 0.7 0-1.3 10 ^3/uL Eosinophils # (Auto) 0 0-0.8 10 ^3/uL Basophils # (Auto) 0 0-0.2 10 ^3/uL Nucleated Red Blood Cells 0.1 % Sodium Level 141 136-145 mmol/L Potassium Level 3.3 L 3.5-5.1 mmol/L Chloride Level 104 98-107 mmol/L Carbon Dioxide Level 26 20-31 mmol/L Anion Gap 11 5-15 Blood Urea Nitrogen 13 9-23 mg/dL Creatinine 0.87 0.550-1.02 mg/dL Glomerular Filtration Rate Calc 85 >90 mL/min BUN/Creatinine Ratio 14.9 10.0-20.0 Serum Glucose 87 74-106 mg/dL Calcium Level 9.7 8.7-10.4 mg/dL B-Type Natriuretic Peptide 79.05 0-100 pg/mL SEPSIS Sepsis Screen Date sepsis recognized/suspect: Nov 03, 2024 Time Sepsis recognized/suspect: 2035 Recent Procedure: No On Antibiotic Therapy: No Respiratory Rate >20: No Heart Rate >90: No Temp<36 C (96.8 F) or >38.3 C: No SBP <90 or MAP <65 mmHG: No New Acute Mental Status Change: No Is the patient on CPAP, BIPAP,: No Physician Orders Electrocardigram (11/03/24 21:48) Electrocardigram (11/03/24 23:48) Urinalysis (11/03/24 20:53) Chest Xray 1 View (11/03/24 21:20) Vital Signs Q1HR (11/03/24 21:20) Titrate Oxygen (11/03/24 21:20) Oxygen (11/03/24 ) Continous Pulse Oximetry (11/03/24 21:20) Saline Lock (11/03/24 21:20) Tooling Specialist (11/03/24 ) Notify Md If Abnormal Vs (11/03/24 21:20) Admit (11/04/24:53) Code Status (11/04/24:53) Review Orders With Adm.Md (11/04/24:53) Bedrest With Bathroom Privileg (11/04/24:53) Notify Md Of Changes From Base (11/04/24:53) Advance Directive (11/04/24:53) Echo 2d Mode Cardiac Dop (11/04/24:53) Basic Metabolic Panel (11/04/24 04:00) Urinalysis (11/04/24:53) Complete Blood Count (11/04/24 04:00) Patient Condition (11/04/24:53) Allergies (11/04/24:53) Hydrocodone-Acet 5/325mg Tab ([place] 5/32 (11/04/24 02:00) Ondansetron Hcl (Zofran) (11/04/24 02:00) Drug Screen (11/04/24:53) Morphine Sulfate Injection (11/04/24 02:00) Stat Ekg For Chest Pain (11/04/24:53) Notify Md Of Changes From Base (11/04/24:53) Home Economist Consumer Service For 24 Hours (11/04/24:53) Morphine Sulfate Injection (11/04/24 02:00) Nitroglycerin Sublingual (Ntrostat Subli (11/04/24 02:00) Rhythm Strips Once Every Shift (11/04/24 01:53) Sodium Chloride 0.9% (11/04/24 02:00) Pantoprazole Tablet (Protonix Tablet) (11/04/24 10:00) Covid19 Antigen Paula (11/04/24 ) Rapid Influenza A&B (8/13/25 01:53) Lipid Panel (11/04/24 02:20) Hemoglobin A1c (11/04/24 02:20) Thyroid Stimulating Hormone (11/04/24 02:20) Cardiac Diet-2gna,Lofat,Lochol (11/04/24 Breakfast) Apixaban (Eliquis) (11/04/24 10:00) Atenolol Tablet (Tenormin Tablet) (11/04/24 10:00) Spironolactone (Aldactone) (11/04/24 10:00) Furosemide Tablet (Lasix Tablet) (11/04/24 10:00) Vital Signs Date Time Temp Pulse Resp B/P (MAP) Pulse Ox O2 Delivery O2 Flow Rate FiO2 11/04/24 02:18 97.5 70 20 126/57 (80) 99 97.5 11/03/24 22:08 70 11/03/24 21:42 70 11/03/24 20:40 70 11/03/24 20:36 98.0 70 16 112/50 98 98.0 Laboratory Tests Test 11/03/24 20:50 White Blood Count 6.8 10^3/uL (4.4-10.8) Medications Medications Dose Ordered Sig/Marli Route Start Time Stop Time Status Last Admin Dose Admin Ondansetron HCl 4 mg ONCE ONCE IV 11/03/24 21:30 11/03/24 21:31 DC 11/04/24 02:04 4 MG Potassium Chloride 40 meq ONCE ONCE PO 11/04/24 00:15 11/04/24 00:20 DC 11/04/24 02:00 40 MEQ Assessment/Plan Assessment/Plan #Acute Chest pain, rule out ACS #Right Branch Block Telemetry EKG Troponins ECHOD2 Cardiac consult. #History of A. fib with 2 ablations #CHF #Hypertension #Hx of congenital heart disease (TGA) BNP Current status of pacemaker Eliquis Medication reconciliation. #Hypokalemia K and Mg Potassium replenish #Obesity Life style modification counselling. Cardiac diet DVT prophylaxis- Eliquis PUD prophylaxis Protonics. Goals of care discussed with the patient > 35 min. Discussed plan of care with Dr. Jaquez Code status: Full code PCP:Dr. Dumont Plan discussed with: Patient, the patient agrees with the admission plan. Plan discussed with: Patient My Orders Orders - ISMA,EMANI RESIDENT Procedure Category Date Status Time Admit ADMIT 11/04/24 Transmitted 01:53 Code Status CODE 11/04/24 Transmitted 01:53 Review Orders With [facility] 11/04/24 In Process Adm. 01:53 Bedrest With Bathroom [facility] 11/04/24 In Process Privileg 01:53 Notify Md Of Changes [facility] 11/04/24 In Process From Base 01:53 Advance Directive [facility] 11/04/24 In Process 01:53 Echo 2d Mode Cardiac US 11/04/24 Logged DOP 01:53 Basic Metabolic Panel LAB 11/04/24 Logged 04:00 Urinalysis LAB 11/04/24 Logged 01:53 Complete Blood Count LAB 11/04/24 Logged 04:00 Patient Condition ORDERS 11/04/24 Transmitted 01:53 Allergies [facility] 11/04/24 In Process 01:53 Hydrocodone-Acet PHA 11/04/24 In Process 5/325mg Tab ([place] 02:00 Ondansetron Hcl PHA 11/04/24 In Process (Zofran) 02:00 Drug Screen LAB 11/04/24 Logged 01:53 Morphine Sulfate PHA 11/04/24 In Process Injection 02:00 Stat Ekg For Chest [facility] 11/04/24 In Process Pain 01:53 Notify Md Of Changes [facility] 11/04/24 In Process From Base 01:53 Home Economist Consumer Service For [facility] 11/04/24 In Process 24 Hours 01:53 Morphine Sulfate PHA 11/04/24 In Process Injection 02:00 Nitroglycerin [facility] 11/04/24 In Process Sublingual (Ntrostat 02:00 Rhythm Strips Once [facility] 11/04/24 In Process Every Shift 01:53 Sodium Chloride 0.9% [facility] 11/04/24 In Process 02:00 Pantoprazole Tablet [facility] 11/04/24 In Process (Protonix Tablet) 10:00 Covid19 Antigen Paula LAB 11/04/24 Logged Rapid Influenza A&B LAB 11/04/24 Logged 01:53 Lipid Panel LAB 11/04/24 Transmitted 02:20 Hemoglobin A1c LAB 11/04/24 Transmitted 02:20 Thyroid Stimulating LAB 11/04/24 Transmitted Hormone 02:20 Cardiac DIET 11/04/24 Transmitted Diet-2gna,Lofat,Lochol Breakfast Apixaban (Eliquis) PHA 11/04/24 Logged 10:00 Atenolol Tablet PHA 11/04/24 Logged (Tenormin Tablet) 10:00 Spironolactone PHA 11/04/24 Transmitted (Aldactone) 10:00 Furosemide Tablet PHA 11/04/24 Transmitted (Lasix Tablet) 10:00 Date of Service: Nov 04, 2024 Billing Provider: PALMA JAQUEZ MD Common Visit Codes: [id number] INP/OBS CARE (HIGH) Secondary Visit Codes: [id number] CARE PLAN 30 MINUTES EMANI ASHBY RESIDENT Nov 04, 2024 02:27
[2024-11-04 05:00] LABS: Hematocrit 43.4 % (36.0-46.0); Hemoglobin 14.5 g/dL (12.2-16.2); Mean Corpuscular Hemoglobin 29.0 pg (28.0-32.0); Mean Corpuscular Volume 87.1 fL (80.0-100.0); Nucleated Red Blood Cells % 0.0 %
[2024-11-04 05:02] LABS: Chloride 105 mmol/L (98-107); Potassium 3.7 mmol/L (3.5-5.1); Sodium 139 mmol/L (136-145)
[2024-11-04 05:03] LABS: Anion Gap 9 (5-15); Calcium 9.7 mg/dL (8.7-10.4); Carbon Dioxide 25 mmol/L (20-31)
[2024-11-04 05:08] LABS: Glucose 92 mg/dL (74-106)
[2024-11-04 05:09] LABS: BUN/Creatinine Ratio 15.4 (10.0-20.0); Blood Urea Nitrogen 14 mg/dL (9-23)
[2024-11-04 10:07] LABS: Triglycerides 127 mg/dL (< 150)
[2024-11-04 10:08] LABS: Cholesterol 155 mg/dL (< 200)
[2024-11-04] MEDS: ATENOLOL 25 MG TAB PO SCH (10:47)
[2024-11-04] MEDS: PANTOPRAZOLE 40 MG TAB PO SCH (10:47)
[2024-11-04] MEDS: SPIRONOLACTONE 25 MG TAB PO SCH (10:47)
[2024-11-04] MEDS: APIXABAN 5 MG TAB PO SCH (10:47)
[2024-11-04] MEDS: FUROSEMIDE 40 MG TAB PO SCH (10:48)
[2024-11-04] MEDS: MORPHINE SULFATE INJ 2 MG/ml SYRG IV PRN (10:49)
[2024-11-04 10:54] LABS: HDL Cholesterol 33 mg/dL (40-59)
--- NOTE | 2024-11-04 15:43 | DVHPNRES ---
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 PMHx:hypertension, congestive heart failure systolic type, hyperlipidemia, pacemaker following right bundle-branch block, atrial fibrillation,transposition of great arteries PSHx: Correction of transposition of great arteries, abalative surgery for atrial fibrillation Family history: Noncontributory Social history: Denies smoking and recreational drugs drinks alcohol occasionally Home medication: Spironolactone 25 mg, lisinopril 10 mg, metoprolol 25 mg, Lasix 40 mg, ferrous sulfate 325 mg, Eliquis 5 mg Allergic history: Penicillin, clindamycin General: patient denies fever, fatigue, weaknes, sweating, any recent changes in appetite and weight HEENT: No headaches, visiual changes, hearing loss, tinnitus, nasal congestion and discharge, and sore throat. Cardiovascular: Complains of chest pain radiating to the left arm, denies palpitations, dyspnea on exertion, orthopnea, or claudication. Respiratory: No cough, and wheezing. Gastrointestinal: Denies nausea, vomiting, dysphagia, odynophagia, heartburn, abdominal pain, flatulence, bloating, diarrhea, constipation, change in stool, or blood in stool. Genitourinary: No dysuria, hematuria, discharge, frequency, urgency, nocturia, incontinence, and urinary retention. Endocrine: No heat or cold intolerance, polydipsia, polyuria, and polyphagia. Neurological: No dizziness, extremity weakness and numbness, tremors, gait disturbance, seizures, and memory impairment. Psychiatric: Denies depression, anxiety,or insomnia. Musculoskeletal: Denies neck pain, stiffness and swelling, back pain, muscle weakness, joint pain, stiffness, swelling, or limited range of motion. Skin: No rashes, itching, skin lesion, changes in hair, nail, skin texture and breast. Hematologic/Lymphatic: Denies easy bruising, bleeding tendencies, or lymph node enlargement. Objective vital signs Vital Sign Date Time Temp Pulse Resp B/P (MAP) Pulse Ox O2 Delivery O2 Flow Rate FiO2 11/04/24 15:06 70 18 102/63 (76) 95 11/04/24 12:04 97.8 97.8 medications Current Medications Medications Dose Ordered Sig/Marli Route Start Time Stop Time Status Last Admin Dose Admin Acetaminophen/ Hydrocodone Bitart 1 tab Q4HP PRN PO 11/04/24 02:00 Ondansetron HCl 4 mg Q4HP PRN IV 11/04/24 02:00 Morphine Sulfate 2 mg Q4HPRN PRN IV 11/04/24 02:00 11/04/24 10:49 2 MG Morphine Sulfate 2 mg Q30M PRN IV 11/04/24 02:00 Nitroglycerin 0.4 mg Q5MINP PRN SL 11/04/24 02:00 Pantoprazole Sodium 40 mg DAILY PO 11/04/24 10:00 11/04/24 10:47 40 MG Apixaban 5 mg BID PO 11/04/24 10:00 11/04/24 10:47 5 MG Atenolol 25 mg DAILY PO 11/04/24 10:00 11/04/24 10:47 25 MG Spironolactone 25 mg DAILY PO 11/04/24 10:00 11/04/24 10:47 25 MG Furosemide 40 mg DAILY PO 11/04/24 10:00 11/04/24 10:48 40 MG Examination General Appearance: Alert, Oriented X3, Cooperative, No acute distress HEENT: Atraumatic, PERRLA, EOMI, Mucous membrane moist/pink Respiratory: Clear to auscultation, Normal air movement Cardiovascular: Normal S1, Normal S2, No murmurs, no chest wall tenderness Abdominal: Normal bowel sounds, Soft, No tenderness, No hepatospenomegaly, No masses Extremities: No clubbing, No cyanosis, No edema, Normal pulses, No tenderness/swelling Skin: No rashes, No breakdown, No significant lesion Neuro: Normal gait, Normal speech, Strength at 5/5 X4 ext, Normal tone, Sensation intact, Cranial nerves 3-12 NL, Reflexes 2+ Psych/Mental Status: Mental status NL, Mood NL laboratory and microbiology Laboratory Tests 11/04/24 04:00 Test 11/04/24 04:00 Range/Units Serum Glucose 92 74-106 mg/dL Problem List/Assessment/Plan Problem List/Assessment/Plan Noncardiac chest pain possibly musculoskeletal Normal EKG, troponins normal Possible pulmonary embolism Possible myocardial infarction Normal EKG, troponin normal Cardiology consultation given Systolic heart failure Lasix 40 mg On metoprolol Hypotension Spironolactone 25 mg, lisinopril 10 mg Atrial fibrillation On Eliquis 5 mg Hyperlipidemia Previous Transposition of great arteries surgically corrected during childhood Pacemaker implant Right bundle-branch block Plan discussed with: Patient Date of Service: Nov 04, 2024 Billing Provider: DARLEEN ZHANG MD Common Visit Codes: [id number] INP/OBS CARE(HIGH) ASIF SIFUENTES RESIDENT Nov 04, 2024 15:43 DARLEEN ZHANG MD Nov 06, 2024 22:41
--- NOTE | 2024-11-04 17:41 | DVHINCON2 ---
Date Seen: Nov 04, 2024 Referring Physician MD Brennon resident Reason for Consultation Chest pain with complicated cardiac anatomy History of Present Illness This is a 44-year-old female patient who presents to the emergency room with chief complaint of chest pain. The patient reports that the chest pain began two days ago. She describes it as unprovoked, intermittent, sharp in nature, left-sided and radiating down her left arm. Associated symptoms include shortness of breath. The patient states that she took a Tylenol at home, which helped relieve the pain. Initial twelve lead electrocardiogram reveals an atrial paced rhythm with underlying right bundle branch block and without any significant ST segment changes. Serial troponin levels have been negative. 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), atrial fibrillation status post two cardiac ablations (on Eliquis), severe pulmonary hypertension, severe tricuspid regurgitation, history of pericardial effusion, hypertension, and obesity. The patient sees a primary chalk machine operator as well as an EP chalk machine operator at [facility]. Past Medical History Past medical history reviewed. No other significant than mentioned above. Past Surgical History Right upper chest dual-chamber pacemaker, 2011 History of epicardial pacemaker Cardiac ablations x2 (06/2021 & 11/2021) Open heart surgery Family History: Patient reports no known family medical history. Family History Family history reviewed. Social History Denies the use of tobacco, alcohol or illicit drugs. Allergies: Coded Allergies: Clindamycin (Verified Allergy, Unknown, 11/03/24) Penicillins (Verified Allergy, Unknown, 06/28/19) Home Meds Active Scripts Clindamycin Hcl (Clindamycin Hcl) 300 Mg Cap, 1 CAP PO TID for 7 Days, #21 CAP 0 Refills Prov:MONA JOHNSON 12/18/23 Acetaminophen (Acetaminophen) 500 Mg Tab, 500 MG PO Q4HPRN, #30 TAB 0 Refills Prov:MONA JOHNSON 12/18/23 Tobramycin Sulfate (Tobrex) [address], 2 DROP OP QID, #5 ML Prov:JOYCE HOOK 10/18/23 Acetaminophen (Tylenol 8 Hour Arthritis) 650 Mg Tab, 650 MG PO TID, #30 TAB Prov:JOYCE HOOK 10/18/23 Nitrofurantoin Monohydrate Mac (Macrobid) 100 Mg Cap, 100 MG PO BID for 7 Days, #14 CAP Prov:TULIO LOPEZ MD 11/14/21 Potassium Chloride (Potassium Chloride ER) 20 Meq Tab, 20 MEQ PO DAILY, #30 MG To be taken only only if you are on diuretics (that is hydrochlorothiazide). Prov:SHIRA VAZ MD 07/17/21 Ciprofloxacin Hcl (Cipro) 500 Mg Tab, 1 TAB PO BID, #10 TAB Prov:SHIRA VAZ MD 07/17/21 Hctz (Hydrochlorothiazide) 25 Mg Tab, 25 MG PO BID, #30 MG Hold for systolic blood pressure less than 100 Prov:SHIRA VAZ MD 07/17/21 Atenolol (Atenolol) 25 Mg Tab, 25 MG PO DAILY, #30 MG Prov:LARRY PLUMMER MD 04/02/21 Reported Medications Benzonatate (Benzonatate) 200 Mg Cap, 1 CAP PO TID 03/03/23 Dapagliflozin Propanediol (Farxiga) 10 Mg Tab, 10 MG PO, TAB 12/11/21 Spironolactone (Spironolactone) 25 Mg Tab, TAB PO DAILY, #90 TAB 1 Refill 12/11/21 Amiodarone Hcl (Amiodarone Hcl) 200 Mg Tab, 200 MG PO Q12HR for 30 Days 04/01/21 Apixaban Base (ELIQUIS) 5 Mg Tab, 5 MG PO BID, TAB 04/01/21 Home Meds Home medications reviewed. Current Medications Current Medications Medications (Trade) Dose Ordered Sig/Marli Route PRN Reason Start Time Stop Time Status Last Admin Acetaminophen/ Hydrocodone Bitart ([place] 5/325MG Tab) 1 tab Q4HP PRN PO MODERATE PAIN (4-6 PAIN SCALE) 11/04/24 02:00 Ondansetron HCl (Zofran) 4 mg Q4HP PRN IV NAUSEA / VOMITING 11/04/24 02:00 Morphine Sulfate 2 mg Q4HPRN PRN IV SEVERE PAIN (7-10 PAIN SCALE) 11/04/24 02:00 11/04/24 10:49 Morphine Sulfate 2 mg Q30M PRN IV FOR CHEST PAIN 11/04/24 02:00 Nitroglycerin (Ntrostat Sublingual) 0.4 mg Q5MINP PRN SL FOR CHEST PAIN 11/04/24 02:00 Pantoprazole Sodium (Protonix Tablet) 40 mg DAILY PO 11/04/24 10:00 11/04/24 10:47 Apixaban (Eliquis) 5 mg BID PO 11/04/24 10:00 11/04/24 10:47 Atenolol (Tenormin Tablet) 25 mg DAILY PO 11/04/24 10:00 11/04/24 10:47 Spironolactone (Aldactone) 25 mg DAILY PO 11/04/24 10:00 11/04/24 10:47 Furosemide (Lasix Tablet) 40 mg DAILY PO 11/04/24 10:00 11/04/24 10:48 Review of Systems Constitutional: No symptom reported Ears, Nose, & Throat: No symptom reported Eyes: No symptom reported Neurological: No symptoms reported Pulmonary/Respiratory: Shortness of breath Cardiovascular: Chest pain Gastrointestinal: No symptom reported Genitourinary: No symptom reported Musculoskeletal: No symptom reported Skin: No symptom reported Psychiatric: No symptom reported Endocrine: No symptom reported Hematologic/Lymphatic: No symptom reported Vital Signs Vital Signs Date Time Temp Pulse Resp B/P (MAP) Pulse Ox O2 Delivery O2 Flow Rate FiO2 11/04/24 15:06 70 18 102/63 (76) 95 11/04/24 12:04 97.8 97.8 Physical Exam General Appearance: Cooperative. Well-developed. Well-nourished. No acute distress. Pulmonary/Respiratory: Clear, bilateral breaths sounds. Cardiovascular/Chest: Regular rate and rhythm. Peripheral Pulses: 2+ Radial (R). 2+ Radial (L). 2+ Pedal (R). 2+ Pedal (L) Abdominal Exam: Normal bowel sounds. Ankle Exam: Negative ankle edema Lower extremities: Negative lower extremity edema Neuro/Mental Status: A/OX4, coherent. Thoughts/Psych: Normal thought pattern. Appropriate mood and affect. Good judgment and insight. Appearance: No acute distress. Skin Exam: Normal inspection. Normal color. Warm and dry. Labs/Diagnostic Data Labs Test 11/04/24 04:00 11/04/24 00:13 11/03/24 20:50 Range/Units White Blood Count 6.6 4.4-10.8 10^3/uL Red Blood Count 4.99 4.0-5.20 10^6/uL Hemoglobin 14.5 12.2-16.2 g/dL Hematocrit 43.4 36.0-46.0 % Mean Corpuscular Volume 87.1 80.0-100.0 fL Mean Corpuscular Hemoglobin 29.0 28.0-32.0 pg Mean Corpuscular Hemoglobin Concent 33.3 32.0-36.0 g/dL Red Cell Distribution Width 17.0 H 11.8-14.3 % Platelet Count 138 L 140-450 10^3/uL Mean Platelet Volume 11.7 H 6.9-10.8 fL Neutrophils (%) (Auto) 49.3 37.0-80.0 % Lymphocytes (%) (Auto) 41.3 10.0-50.0 % Monocytes (%) (Auto) 8.4 0.0-12.0 % Eosinophils (%) (Auto) 0.5 0.0-7.0 % Basophils (%) (Auto) 0.5 0.0-2.0 % Neutrophils # (Auto) 3.3 1.6-8.6 10 ^3/uL Lymphocytes # (Auto) 2.7 0.4-5.4 10 ^3/uL Monocytes # (Auto) 0.6 0-1.3 10 ^3/uL Eosinophils # (Auto) 0 0-0.8 10 ^3/uL Basophils # (Auto) 0 0-0.2 10 ^3/uL Nucleated Red Blood Cells 0.0 % Erythrocyte Sedimentation Rate 2 0-20 mm/hr Sodium Level 139 136-145 mmol/L Potassium Level 3.7 3.5-5.1 mmol/L Chloride Level 105 98-107 mmol/L Carbon Dioxide Level 25 20-31 mmol/L Anion Gap 9 5-15 Blood Urea Nitrogen 14 9-23 mg/dL Creatinine 0.91 0.550-1.02 mg/dL Glomerular Filtration Rate Calc 80 >90 mL/min BUN/Creatinine Ratio 15.4 10.0-20.0 Serum Glucose 92 74-106 mg/dL Hemoglobin A1c 5.7 <5.7 % A1C Calcium Level 9.7 8.7-10.4 mg/dL C-Reactive Protein High Sensitivity 0.12 <1.0 mg/dL Triglycerides Level 127 < 150 mg/dL Cholesterol Level 155 < 200 mg/dL LDL Cholesterol 112 H < 100 mg/dL HDL Cholesterol 33 L 40-59 mg/dL Thyroid Stimulating Hormone (TSH) 4.05 0.55-4.78 uIU/mL Troponin I High Sensitivity 3 L </=34 ng/L B-Type Natriuretic Peptide 79.05 0-100 pg/mL Assessment Chest pain, likely noncardiac Paroxysmal atrial fibrillation s/p cardiac ablations x 2 (on Eliquis) 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) Pulmonary hypertension, severe Hypertension Obesity Plan/Recommendation We will continue with the following plan/recommendations (Dr. Easley): Case discussed with . We will proceed with obtaining a transthoracic echocardiogram to evaluate cardiac function. Given the patient's clinical presentation, negative troponin level, and twelve lead electrocardiogram, doubt ACS. In the setting of an unremarkable transthoracic echocardiogram, there is no further inpatient cardiac workup necessary at this time. The patient will need to follow up with her primary chalk machine operator in the outpatient setting in 1-2 weeks post discharge. Thank you for allowing us to care for this patient. Please call with any questions or concerns. Critical care time spent: 44 minutes This medical document was created using an electronic medical record system with voice recognition software and computerized dictation system. Although this document has been carefully reviewed, there might still be some phonetic and typographical errors. Occasional wrong-word or ``sound-alike substitutions may have occurred due to the inherent limitations of voice recognition software. These areas are purely typographical due to imperfections of the software programs and do not reflect any compromise in the patient's medical care. Please read the chart carefully and recognize, using context, where these substitutions have occurred. Plan discussed with: Patient NYHA Physical activity limitations: NA Date of Service: Nov 04, 2024 Billing Provider: LEONARD COBB Cardiology Common Codes: 98567-[id number] INP/OBS CARE (High) Cardiology Consultation Codes: [id number] CONSULT <45MIN LEONARD COBB Nov 04, 2024 17:41
[2024-11-04 20:55] LABS: COVID19 ANTIGEN SOFIA FIA NEGATIVE (NEGATIVE)
[2024-11-04 21:21] VITALS: BP 120/68; PULSE 70; PULSE 72; RESP 16; RESP 17; TEMP 97.6; O2SAT 96; O2SAT 97
[2024-11-04 21:45] VITALS: PULSE 70; RESP 17; O2SAT 97
[2024-11-05] MEDS ORDERED: LISI10TA34 PO (00:20)
[2024-11-05] MEDS ORDERED: METO25TA93 PO (00:20)
[2024-11-05] MEDS ORDERED: FERRPOW47 XX (00:20)
[2024-11-05 05:00] VITALS: BP 103/65; PULSE 68; RESP 17; TEMP 97.5; O2SAT 96
[2024-11-05 09:00] VITALS: BP 101/61; PULSE 70; RESP 18; TEMP 97.7; O2SAT 98
[2024-11-05] MEDS: METOPROLOL SUCCINATE XL 50 MG TAB PO SCH (10:40)
[2024-11-05 13:03] VITALS: BP 118/70; PULSE 69; RESP 18; TEMP 97.3; O2SAT 98
[2024-11-05 16:36] VITALS: BP 117/63; PULSE 59; RESP 20; TEMP 98.5; O2SAT 93
[2024-11-05] MEDS: HYDROcodone-ACET 5/325MG TAB PO PRN (17:01)
--- NOTE | 2024-11-05 18:01 | DVHDSRES ---
Discharge Summary Date of Admission Resident Creating Document: ASIF SIFUENTES RESIDENT Nov 04, 2024 at 01:53 Date of Discharge: Nov 05, 2024 Admitting Diagnosis To rule out ACS Labs/Diagnostic Data: Laboratory Results Test 11/05/24 17:00 11/05/24 07:35 11/04/24 13:07 11/04/24 04:00 Influenza Type A Antigen Negative (Negative) Influenza Type B Antigen Negative (Negative) SARS-CoV-2 Antigen (Rapid) Negative (NEGATIVE) White Blood Count 6.6 10^3/uL (4.4-10.8) Red Blood Count 4.99 10^6/uL (4.0-5.20) Hemoglobin 14.5 g/dL (12.2-16.2) Hematocrit 43.4 % (36.0-46.0) Mean Corpuscular Volume 87.1 fL (80.0-100.0) Mean Corpuscular Hemoglobin 29.0 pg (28.0-32.0) Mean Corpuscular Hemoglobin Concent 33.3 g/dL (32.0-36.0) Red Cell Distribution Width 17.0 % (11.8-14.3) Platelet Count 138 10^3/uL (140-450) Mean Platelet Volume 11.7 fL (6.9-10.8) Neutrophils (%) (Auto) 49.3 % (37.0-80.0) Lymphocytes (%) (Auto) 41.3 % (10.0-50.0) Monocytes (%) (Auto) 8.4 % (0.0-12.0) Eosinophils (%) (Auto) 0.5 % (0.0-7.0) Basophils (%) (Auto) 0.5 % (0.0-2.0) Neutrophils # (Auto) 3.3 10 ^3/uL (1.6-8.6) Lymphocytes # (Auto) 2.7 10 ^3/uL (0.4-5.4) Monocytes # (Auto) 0.6 10 ^3/uL (0-1.3) Eosinophils # (Auto) 0 10 ^3/uL (0-0.8) Basophils # (Auto) 0 10 ^3/uL (0-0.2) Nucleated Red Blood Cells 0.0 % Erythrocyte Sedimentation Rate 2 mm/hr (0-20) Sodium Level 139 mmol/L (136-145) Potassium Level 3.7 mmol/L (3.5-5.1) Chloride Level 105 mmol/L (98-107) Carbon Dioxide Level 25 mmol/L (20-31) Anion Gap 9 (5-15) Blood Urea Nitrogen 14 mg/dL (9-23) Creatinine 0.91 mg/dL (0.550-1.02) Glomerular Filtration Rate Calc 80 mL/min (>90) BUN/Creatinine Ratio 15.4 (10.0-20.0) Serum Glucose 92 mg/dL (74-106) Hemoglobin A1c 5.7 % A1C (<5.7) Calcium Level 9.7 mg/dL (8.7-10.4) C-Reactive Protein High Sensitivity 0.12 mg/dL (<1.0) Triglycerides Level 127 mg/dL (< 150) Cholesterol Level 155 mg/dL (< 200) LDL Cholesterol 112 mg/dL (< 100) HDL Cholesterol 33 mg/dL (40-59) Thyroid Stimulating Hormone (TSH) 4.05 uIU/mL (0.55-4.78) Test 11/04/24 00:13 11/03/24 20:50 Troponin I High Sensitivity 3 ng/L (</=34) B-Type Natriuretic Peptide 79.05 pg/mL (0-100) Other Laboratory Tests 11/04/24 04:00 Brief Hx & Hospital Course: 44-year-old female with past medical history of transposition of great arteries which is characterized as an when she was 4 months, hypertension, congestive heart failure systolic type, hyperlipidemia, pacemaker following right bundle-branch block, atrial fibrillation and to surgeries for ablation the last 1 in back in 2011 came to the hospital with complaints of chest pain which he graded 5 X pressure-like and radiating to the arms, dizziness, nausea, palpitation, shortness of breath the patient states that pain did not improve with rest and later increased to an intensity of 8 on 10 ECG showed right bundle branch block troponins were normal. Chest x-ray shows stable cardiomegaly. EKG showed atrial paced complexes and right bundle branch block. Cardiology consultation was given. They advised given the negative test results of the patient, regular follow-up with criminal records technician as outpatient. The patient is stable and hence being discharged Condition at Discharge: Good Final Diagnosis/Problems List Previous Transposition of great arteries surgically corrected during childhood congenital heart disease including transposition of the great vessels chest pain possibly musculoskeletal Ruled out ACS Possible pulmonary embolism Right upper chest dual-chamber pacemaker, 2012, Pacemaker implant A sensed V paced Right ventricular lead revision with residual lead History of epicardial pacemaker Cardiac ablations x2 (06/2021 & 11/2021) Open heart surgery Hypertension Atrial Fibrilation Secondary hypercoagulable state Dyslipidemia Right bundle-branch block, chronic Obesity Pulmonary hypertension- severe Discharge Disposition: Home Discharge Instruct/Medications Diet: Cardiac 2g Na,low cholest Activity: No Restrictions, As Tolerated Follow Up/Referral: Please follow up with your PCP within 7 days. Please follow up with your Cardiologists as soon as possible for close follow up. Medications: as per EHR Scheduled Acetaminophen (Tylenol 8 Hour Arthritis), 650 MG PO TID Acetaminophen (Acetaminophen), 500 MG PO Q4HPRN Amiodarone Hcl (Amiodarone Hcl), 200 MG PO Q12HR, (Reported) Apixaban Base (Eliquis), 5 MG PO BID, (Reported) Atenolol (Atenolol), 25 MG PO DAILY Benzonatate (Benzonatate), 1 CAP PO TID, (Reported) Ciprofloxacin Hcl (Cipro), 1 TAB PO BID Clindamycin Hcl (Clindamycin Hcl), 1 CAP PO TID Hctz (Hydrochlorothiazide), 25 MG PO BID Lisinopril (Lisinopril), 10 MG PO DAILY, (Reported) Metoprolol Succinate (Metoprolol Succinate Er), 25 MG PO DAILY, (Reported) Nitrofurantoin Monohydrate Mac (Macrobid), 100 MG PO BID Potassium Chloride (Potassium Chloride ER), 20 MEQ PO DAILY Spironolactone (Spironolactone), TAB PO DAILY, (Reported) Tobramycin Sulfate (Tobrex), 2 DROP OP QID Miscellaneous Medications Dapagliflozin Propanediol (Farxiga), 10 MG PO, (Reported) Ferric Sulfate (Ferric Sulfate Hydrate), 1 XX, (Reported) Discharge Statement: "Patient was advised to return to the ER or call 911 if any headaches, dizziness, shortness of breath, chest pain, abdominal pain, bleeding, fevers, or worsening of medical condition. Patient was counseled about treatment plan, medications, possible side effects, patientverbalized understanding. All questions were answered to the best of my ability. This discharge took greater then 30 minutes in planning, reviewing documentation, counseling the patient, and discussing with other team members." ASSESSMENT ASSESSMENT Assessment Previous Transposition of great arteries surgically corrected during childhood congenital heart disease including transposition of the great vessels chest pain possibly musculoskeletal Ruled out ACS Possible pulmonary embolism Right upper chest dual-chamber pacemaker, 2011, Pacemaker implant A sensed V paced Right ventricular lead revision with residual lead History of epicardial pacemaker Cardiac ablations x2 (06/2021 & 11/2021) Open heart surgery Hypertension Atrial Fibrilation Secondary hypercoagulable state Dyslipidemia Right bundle-branch block, chronic Date of Service: Nov 05, 2024 Billing Provider: DARLEEN ZHANG MD Common Visit Codes: 91035-YXT/OBS DISCH DAY >30min ASIF SIFUENTES RESIDENT Nov 05, 2024 17:53 DARLEEN ZHANG MD Nov 06, 2024 23:20
[2024-11-05 18:07] LABS: Urine Amorphous Crystal FEW /hpf (None Seen); Urine Protein, UAD Negative (Negative)
[2024-11-05 18:14] LABS: Opiate Scree,Urine Neg (NEGATIVE)
[2024-11-05 18:15] VITALS: BP 103/66; PULSE 74; TEMP 36.9
[2024-11-05 18:15] LABS: Cannabinoid Screen, Urine Pos (NEGATIVE)
[2024-11-05 18:18] LABS: Amphetamine Screen, Urine Neg (NEGATIVE); Barbiturate Scree,Urine Neg (NEGATIVE); Benzodiazephine Screen, Urine Neg (NEGATIVE); Cocaine Screen, Urine Neg (NEGATIVE); Phencyclidine Screen, Urine Neg (NEGATIVE)
--- NOTE | 2024-11-05 23:54 | DVHSR ---
APPROVED REPORT EXAM: LIMITED Two-dimensional and M-mode echocardiogram with Doppler and color Doppler. Blood Pressure: 103/65 mmHg INDICATION CHF BRIEF HISTORY History of congenital defect, Transposition of the Great Vessels RISK FACTORS Height: 62, Weight: 178 DIMENSIONS LVDd4.6 (3.8-5.7cm)LA (2D) (1.9-4.0cm)Aortic Root (2.0-3.7cm) LVDs2.8 (2.5-4.0cm)LA (MM) (1.9-4.0cm)Aortic Cusp Exc (1.5-2.0cm) EF (%) 71.0 (55-70%)Rt. Atrium (1.9-4.0cm)Asc. Aorta cm Mitral Valve MitralMitral Stenosis E/A ratio0.02D MVAcm2 Other Information Technically limited study due to body habitus and patient position. Conclusion LV EF IS 70 % DYSKINESIS OF IVS SIGNIFICANTLY DILATED RV AND RA MAJOR HYPOKINESIS OF RV SEVERE RIGHT HEART FAILURE MILD POSTERIOR PERICARDIAL EFFSUION NORMAL VALVES
--- NOTE | 2024-11-06 12:03 | ECG ---
[facility] Test Date: 2024-11-03 Test Time: 20:40:44 Pat Name: KRISTINA MATOS Department: [facility] ED Patient ID: [facility]-[id number] Room: [facility]6T A Gender: F Inweaver: MEMO : 1980 Requested By: LETTY CASTILLO Order Number: [id number] Reading MD: Patrick Banegas Measurements Intervals [place] Rate: 70 P: 0 VA: 71 QRS: 99 QRSD: 120 T: 90 QT: 428 QTc: 462 Interpretive Statements Atrial-paced rhythm RBBB and LPFB Nonspecific T abnormalities, lateral leads Electronically Signed On 11-09-2024 22:35:07 PDT by Patrick Banegas Please click the below link to view image of tracing.
[2024-11-06 12:13] LABS: Hepatitis B Surface Antigen Negative (Negative); Hepatitis C Antibody Negative (Negative)
== END 2024-11-05 19:25 | disposition home or self-care (01) | DRG 203 ==
LOC: ER 20:34 → OVERFLOW 11-04 01:53 → WEST WING 11-04 21:20 → TELE-WESTW 11-05 01:40
PROVIDERS: ADMIT Student in an Organized Health Care Education/Training Program; ATTEND Student in an Organized Health Care Education/Training Program
DX: R07.89 Other chest pain (principal); D68.69 Other thrombophilia; I27.20 Pulmonary hypertension, unspecified; I50.22 Chronic systolic (congestive) heart failure; I11.0 Hypertensive heart disease with heart failure; E66.9 Obesity, unspecified; I48.0 Paroxysmal atrial fibrillation; E87.6 Hypokalemia; E78.5 Hyperlipidemia, unspecified; Z79.01 Long term (current) use of anticoagulants; Z79.2 Long term (current) use of antibiotics; Z79.899 Other long term (current) drug therapy; Z95.0 Presence of cardiac pacemaker; Z68.32 Body mass index [BMI] 32.0-32.9, adult
CPT/HCPCS: 36415; 71045; 80048; 80061; 80307; 81001; 83036; 83880; 84443; 84484; 85025; 85652; 86141; 86803; 87040; 87340; 87426; 87804; 93005; 93306; G0378; J2405

== ENCOUNTER 2025-01-25 20:56 | Emergency (ER) | payer MEDICAID ==
[~2025-01-25] VITALS: Ht 157.5 cm; Wt 74.2 kg
[~2025-01-25 20:56] MED LIST changes: +FERRPOW47 XX; +LISI10TA34 PO; +METO25TA93 PO
[2025-01-25 20:57] VITALS: BP 104/67; PULSE 70; RESP 16; TEMP 98.7; O2SAT 97
--- NOTE | 2025-01-25 21:43 | ED.PDOC ---
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 Patient reports ongoing 3 7 pads per day. She denies any dizziness or syncope. No improvement or relief after completing Provera medication course she was prescribed by her PCP following previous in-person visit 10 days ago. Significant history for heavy menstrual cycles, with pending outpatient hysterectomy procedure on February 24, 2025. Chief Complaint: Vaginal Bleed Time Seen by MD: 21:20 Reviewed Notes: Nurses Notes, Medications, Allergies Allergies: Coded Allergies: Clindamycin (Verified Allergy, Unknown, 11/03/24) Penicillins (Verified Allergy, Unknown, 06/28/19) Home Meds Active Scripts Clindamycin Hcl (Clindamycin Hcl) 300 Mg Cap, 1 CAP PO TID for 7 Days, #21 CAP 0 Refills Prov:MONA JOHNSON 12/18/23 Acetaminophen (Acetaminophen) 500 Mg Tab, 500 MG PO Q4HPRN, #30 TAB 0 Refills Prov:MONA JOHNSON 12/18/23 Tobramycin Sulfate (Tobrex) [address], 2 DROP OP QID, #5 ML Prov:JOYCE HOOK 10/18/23 Acetaminophen (Tylenol 8 Hour Arthritis) 650 Mg Tab, 650 MG PO TID, #30 TAB Prov:JOYCE HOOK 10/18/23 Nitrofurantoin Monohydrate Mac (Macrobid) 100 Mg Cap, 100 MG PO BID for 7 Days, #14 CAP Prov:TULIO LOPEZ MD 11/14/21 Potassium Chloride (Potassium Chloride ER) 20 Meq Tab, 20 MEQ PO DAILY, #30 MG To be taken only only if you are on diuretics (that is hydrochlorothiazide). Prov:SHIRA VAZ MD 07/17/21 Ciprofloxacin Hcl (Cipro) 500 Mg Tab, 1 TAB PO BID, #10 TAB Prov:SHIRA VAZ MD 07/17/21 Hctz (Hydrochlorothiazide) 25 Mg Tab, 25 MG PO BID, #30 MG Hold for systolic blood pressure less than 100 Prov:SHIRA VAZ MD 07/17/21 Atenolol (Atenolol) 25 Mg Tab, 25 MG PO DAILY, #30 MG Prov:LARRY PLUMMER MD 04/02/21 Reported Medications Ferric Sulfate (Ferric Sulfate Hydrate) Sulfate Pow, 1 XX, POW 11/05/24 Lisinopril (Lisinopril) 10 Mg Tab, 10 MG PO DAILY, TAB 11/05/24 Metoprolol Succinate (Metoprolol Succinate Er) 25 Mg Tab, 25 MG PO DAILY for 30 Days, MG 11/05/24 Benzonatate (Benzonatate) 200 Mg Cap, 1 CAP PO TID 03/03/23 Dapagliflozin Propanediol (Farxiga) 10 Mg Tab, 10 MG PO, TAB 12/11/21 Spironolactone (Spironolactone) 25 Mg Tab, TAB PO DAILY, #90 TAB 1 Refill 12/11/21 Amiodarone Hcl (Amiodarone Hcl) 200 Mg Tab, 200 MG PO Q12HR for 30 Days 04/01/21 Apixaban Base (ELIQUIS) 5 Mg Tab, 5 MG PO BID, TAB 04/01/21 Information Source: Patient Mode of Arrival: Ambulatory Timing: Weeks Prehospital treatment: Other (see HPI) Severity: Moderate Vaginal Discharge: None Vaginal Lesions: None Bleeding Quality: Bright Red Vaginal Mass: None Onset Of Mass/Bleeding: Menstrual Sexual Activity: Sexually Active Control: Other (Provera) Symptoms of Possible : None Associated Signs and Symptoms: Vaginal Bleeding, Abdominal Pain Past Medical History PAST MEDICAL HISTORY: DM, High Lipids, HTN Surgical History: Pacemaker 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) Family History Family History: Unknown Social History Smoker: Non-Smoker Alcohol: Denies ETOH Use Drugs: Denies Drug Use Lives In: Home All Other Systems: Reviewed and Negative (Comprehensive review of systems are negative unless otherwise stated in HPI) Physical Exam General Appearance: No Apparent Distress, Normal HEENT: Normal ENT Inspection, Pharynx Normal, TMs Normal Neck: Full Range of Motion, Non-Tender, Normal, Normal Inspection Respiratory: Chest Non-Tender, Lungs Clear, No Accessory Muscle Use, No Respiratory Distress, Normal Breath Sounds Cardiovascular: No Edema, No JVD, No Murmur, No Gallop, Normal Peripheral Pulses, Regular Rate/Rhythm Breast Exam: Deferred Gastrointestinal: No Organomegaly, Non Tender, No Pulsatile Mass, Normal Bowel Sounds, Soft Genitalia: Deferred Pelvic: Deferred Rectal: Deferred Extremities: No calf tenderness, Normal capillary refill, Normal inspection, Normal range of motion, Non-tender, No pedal edema Musculoskeletal : Apperance: Normal Neurologic: Alert, gas meter repairer II-XII nml as Tested, No Motor Deficits, Normal Affect, Normal Mood, No Sensory Deficits Cerebellar Function: Normal Reflexes: Normal Skin: Dry, Normal Color, Warm Lymphatic: No Adenopathy Was a procedure done? Was a procedure done?: No Differential Diagnosis (CUSTOMER SERVICE MANAGER) Vaginal Bleeding: Blood Loss Anemia, Dysmenorrhea, Ectopic , Hormonal, Menorrhagia, Menometrorrhagia, Menstrual Bleeding, PID, UTI, Vaginitis X-Ray, Labs, Meds, VS Vital Signs Date Time Temp Pulse Resp B/P (MAP) Pulse Ox O2 Delivery O2 Flow Rate FiO2 01/25/25 20:57 98.7 70 16 104/67 97 98.7 Lab Test 01/25/25 21:50 Range/Units White Blood Count 8.8 4.4-10.8 10^3/uL Red Blood Count 4.41 4.0-5.20 10^6/uL Hemoglobin 13.0 12.2-16.2 g/dL Hematocrit 38.7 36.0-46.0 % Mean Corpuscular Volume 87.7 80.0-100.0 fL Mean Corpuscular Hemoglobin 29.5 28.0-32.0 pg Mean Corpuscular Hemoglobin Concent 33.6 32.0-36.0 g/dL Red Cell Distribution Width 13.4 11.8-14.3 % Platelet Count 127 L 140-450 10^3/uL Mean Platelet Volume 11.9 H 6.9-10.8 fL Neutrophils (%) (Auto) 60.7 37.0-80.0 % Lymphocytes (%) (Auto) 30.5 10.0-50.0 % Monocytes (%) (Auto) 8.1 0.0-12.0 % Eosinophils (%) (Auto) 0.3 0.0-7.0 % Basophils (%) (Auto) 0.4 0.0-2.0 % Neutrophils # (Auto) 5.4 1.6-8.6 10 ^3/uL Lymphocytes # (Auto) 2.7 0.4-5.4 10 ^3/uL Monocytes # (Auto) 0.7 0-1.3 10 ^3/uL Eosinophils # (Auto) 0 0-0.8 10 ^3/uL Basophils # (Auto) 0 0-0.2 10 ^3/uL Nucleated Red Blood Cells 0.1 % Sodium Level 142 136-145 mmol/L Potassium Level 3.7 3.5-5.1 mmol/L Chloride Level 107 98-107 mmol/L Carbon Dioxide Level 23 20-31 mmol/L Anion Gap 12 5-15 Blood Urea Nitrogen 10 9-23 mg/dL Creatinine 0.91 0.550-1.02 mg/dL Glomerular Filtration Rate Calc 80 >90 mL/min BUN/Creatinine Ratio 11.0 10.0-20.0 Serum Glucose 85 74-106 mg/dL Calcium Level 9.0 8.7-10.4 mg/dL X-Ray, Labs, Meds, VS Comment Imaging was reviewed by this provider, there is no obvious pathological or acute disease process. Pending radiology review Labs were reviewed by this provider, no abnormalities Vital signs reviewed by this provider, clinically stable Time of 1ST Reevaluation: 21:50 Reevaluation 1ST: Unchanged Patient Education/Counseling: Diagnosis, Treatment, Need For Follow Up (Follow up with PCP next available appointment.) Family Education/Counseling: No Family Present Departure 1 Departure Time of Disposition: 23:11 Impression: Primary Impression: Dysmenorrhea Disposition: 01 HOME / SELF CARE / HOMELESS Condition: Stable e-Prescriptions Medroxyprogesterone Acetate (Medroxyprogesterone Aceta) 10 Mg Tab 10 MG PO DAILY for 10 Days, #10 TAB Prov: LUCERO HDZ 01/25/25 Discharged With: Self Critical Care Note Critical Care Time?: No Stability Stability form required: No Heart Score Heart Score: Heart Score Response (Comments) Value History N/A 0 EKG N/A 0 Age N/A 0 Risk Factors N/A 0 Troponin N/A 0 Total 0 I personally scribed for LUCERO HDZ ([email or web address]) on 01/25/25 at 21:43. Electronically submitted by Clemente Porter ([email or web address]). LUCERO HDZ Jan 25, 2025 21:43
[2025-01-25 22:08] LABS: Hematocrit 38.7 % (36.0-46.0); Hemoglobin 13.0 g/dL (12.2-16.2); Mean Corpuscular Hemoglobin 29.5 pg (28.0-32.0); Mean Corpuscular Volume 87.7 fL (80.0-100.0); Nucleated Red Blood Cells % 0.1 %
[2025-01-25 22:37] LABS: Chloride 107 mmol/L (98-107); Potassium 3.7 mmol/L (3.5-5.1); Sodium 142 mmol/L (136-145)
[2025-01-25 22:38] LABS: Anion Gap 12 (5-15); Calcium 9.0 mg/dL (8.7-10.4); Carbon Dioxide 23 mmol/L (20-31)
[2025-01-25 22:43] LABS: BUN/Creatinine Ratio 11.0 (10.0-20.0); Blood Urea Nitrogen 10 mg/dL (9-23); Glucose 85 mg/dL (74-106)
--- NOTE | 2025-01-25 22:47 | DVH ---
INDICATION: vag bleed TECHNIQUE: Multiple real-time grayscale transabdominal sonographic images along with color and duplex Doppler of the uterus and ovaries were obtained. COMPARISON: US TRANSVAGINAL US NON OB on DOS: 01/25/25, CT CT AB PEL WITH IV CON ONLY on DOS: 03/02/23 FINDINGS: The uterus measures 9.3 x 3.9 x 5.2 cm. Pedunculated fibroid at the fundus measuring 3.2 x 2.0 x 2.8 cm. The endometrial stripe measures 0.2 cm. IUD in-situ. Right ovary measures 2.7 x 1.3 x 2.2 cm with normal Doppler color flow Left ovary measures 2.8 x 1.9 x 2.7 cm with normal Doppler color flow. Simple appearing left ovarian follicle measuring 1.5 cm. Few small nabothian cysts. IMPRESSION: Solitary uterine fibroid at the fundus that appears pedunculated. Otherwise no significant abnormality.
[2025-01-25] MEDS ORDERED: MEDR10TA9 PO (23:12)
== END 2025-01-25 23:32 | disposition home or self-care (01) ==
LOC: ER 20:58
DX: N94.6 Dysmenorrhea, unspecified (principal); I10 Essential (primary) hypertension; E11.9 Type 2 diabetes mellitus without complications; E78.5 Hyperlipidemia, unspecified; Z79.899 Other long term (current) drug therapy; Z98.890 Other specified postprocedural states; Z88.0 Allergy status to penicillin; Z88.1 Allergy status to other antibiotic agents; Z95.0 Presence of cardiac pacemaker
CPT/HCPCS: 36415; 76830; 76856; 80048; 85025; 86850; 86900; 86901

== ENCOUNTER 2025-01-31 15:23 | Inpatient (IN) | payer MEDICAID ==
[~2025-01-31] VITALS: Ht 157.5 cm; Wt 78.2 kg
[~2025-01-31 15:23] MED LIST changes: +MEDR10TA9 PO
--- NOTE | 2025-01-31 16:03 | ED.PDOC ---
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 Patient reports expelling multiple blood clots described as bright red. Patient had a hysterectomy scheduled on 02/09/25, was originally scheduled on 01/25/25, however had to get cardiac clearance but could not get an appointment until 02/03/25. She mentions feeling very weak, dizzy and had near syncopes at home today. 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), atrial fibrillation status post two cardiac ablations (on Eliquis), severe pulmonary hypertension, severe tricuspid regurgitation, history of pericardial effusion, hypertension, and obesity. Chief Complaint: Vaginal Bleed Time Seen by MD: 15:52 Reviewed Notes: Nurses Notes, Medications, Allergies Allergies: Coded Allergies: Clindamycin (Verified Allergy, Unknown, 11/03/24) Penicillins (Verified Allergy, Unknown, 06/28/19) Home Meds Active Scripts Medroxyprogesterone Acetate (Medroxyprogesterone Aceta) 10 Mg Tab, 10 MG PO DAILY for 10 Days, #10 TAB Prov:LUCERO HDZ 01/25/25 Clindamycin Hcl (Clindamycin Hcl) 300 Mg Cap, 1 CAP PO TID for 7 Days, #21 CAP 0 Refills Prov:MONA JOHNSON 12/18/23 Acetaminophen (Acetaminophen) 500 Mg Tab, 500 MG PO Q4HPRN, #30 TAB 0 Refills Prov:MONA JOHNSON 12/18/23 Tobramycin Sulfate (Tobrex) [address], 2 DROP OP QID, #5 ML Prov:JOYCE HOOK 10/18/23 Acetaminophen (Tylenol 8 Hour Arthritis) 650 Mg Tab, 650 MG PO TID, #30 TAB Prov:JOYCE HOOK 10/18/23 Nitrofurantoin Monohydrate Mac (Macrobid) 100 Mg Cap, 100 MG PO BID for 7 Days, #14 CAP Prov:TULIO LOPEZ MD 11/14/21 Potassium Chloride (Potassium Chloride ER) 20 Meq Tab, 20 MEQ PO DAILY, #30 MG To be taken only only if you are on diuretics (that is hydrochlorothiazide). Prov:SHIRA VAZ MD 07/17/21 Ciprofloxacin Hcl (Cipro) 500 Mg Tab, 1 TAB PO BID, #10 TAB Prov:SHIRA VAZ MD 07/17/21 Hctz (Hydrochlorothiazide) 25 Mg Tab, 25 MG PO BID, #30 MG Hold for systolic blood pressure less than 100 Prov:SHIRA VAZ MD 07/17/21 Atenolol (Atenolol) 25 Mg Tab, 25 MG PO DAILY, #30 MG Prov:LARRY PLUMMER MD 04/02/21 Reported Medications Ferric Sulfate (Ferric Sulfate Hydrate) Sulfate Pow, 1 XX, POW 11/05/24 Lisinopril (Lisinopril) 10 Mg Tab, 10 MG PO DAILY, TAB 11/05/24 Metoprolol Succinate (Metoprolol Succinate Er) 25 Mg Tab, 25 MG PO DAILY for 30 Days, MG 11/05/24 Benzonatate (Benzonatate) 200 Mg Cap, 1 CAP PO TID 03/03/23 Dapagliflozin Propanediol (Farxiga) 10 Mg Tab, 10 MG PO, TAB 12/11/21 Spironolactone (Spironolactone) 25 Mg Tab, TAB PO DAILY, #90 TAB 1 Refill 12/11/21 Amiodarone Hcl (Amiodarone Hcl) 200 Mg Tab, 200 MG PO Q12HR for 30 Days 04/01/21 Apixaban Base (ELIQUIS) 5 Mg Tab, 5 MG PO BID, TAB 04/01/21 Information Source: Patient Mode of Arrival: Ambulatory Timing: Months (1) Severity: Moderate Vaginal Discharge: None Vaginal Lesions: None Bleeding Quality: Bright Red, Clotted Vaginal Mass: None Onset Of Mass/Bleeding: Spontaneous Sexual Activity: Neither Control: None Blood Type: Unknown Symptoms of Possible : None Associated Signs and Symptoms: Vaginal Bleeding Past Medical History PAST MEDICAL HISTORY: DM, High Lipids, HTN Past Medical History (Other): 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), atrial fibrillation status post two cardiac ablations (on Eliquis), severe pulmonary hypertension, severe tricuspid regurgitation, history of pericardial effusion, hypertension, and obesity. Surgical History: Pacemaker RN TRANSITIONAL CARE History: Other Family History Family History: Unknown Social History Smoker: Non-Smoker Alcohol: Denies ETOH Use Drugs: Denies Drug Use Lives In: Home Constitutional: reports: weakness; denies: chills, diaphoresis, fatigue, fever, malaise, sweats, others EENTM: denies: blurred vision, double vision, ear bleeding, ear discharge, ear drainage, ear pain, ear ringing, eye pain, eye redness, hearing loss, mouth pain, mouth swelling, nasal discharge, nose bleeding, nose congestion, nose pain, photophobia, tearing, throat pain, throat swelling, voice changes, others Respiratory: denies: cough, hemoptysis, orthopnea, SOB at rest, shortness of breath, SOB with excertion, stridor, wheezing, others Cardiovascular: reports: lightheadedness; denies: chest pain, dizzy spells, diaphoresis, Dyspnea on exertion, edema, irregular heart beat, left arm pain, palpitations, PND, syncope, others Gastrointestinal: denies: abdomen distended, abdominal pain, blood streaked bowels, constipated, diarrhea, dysphagia, difficulty swallowing, hematemesis, melena, nausea, poor appetite, poor fluid intake, rectal bleeding, rectal pain, vomiting, others Genitourinary: reports: abnormal vagina bleeding; denies: burning, dyspareunia, dysuria, flank pain, frequency, hematuria, incontinence, pain, , vagina discharge, urgency, others Neurological: reports: dizziness; denies: fainting, headache, left sided numbness, left sided weakness, numbness, paresthesia, pre-existing deficit, right sided numbness, right sided weakness, seizure, speech problems, tingling, tremors, weakness, others Musculoskeletal: denies: back pain, gout, joint pain, joint swelling, muscle pain, muscle stiffness, neck pain, others Integumetry: denies: bruises, change in color, change in hair/nails, dryness, laceration, lesions, lumps, rash, wounds, others Allergic/Immunocompromised: denies: Difficulty Healing, Frequent Infections, Hives, Itching, others Hematologic/Lymphatic: denies: anemia, blood clots, easy bleeding, easy bruising, swollen glands, others Endocrine: denies: excessive hunger, excessive sweating, excessive thirst, excessive urination, flushing, intolerance to cold, intolerance to heat, unexplained weight gain, unexplained weight loss, others Psychiatric: denies: anxiety, bipolar disorder, depression, hopeless, panic disorder, schizophrenia, sleepless, suicidal, others All Other Systems: Reviewed and Negative Physical Exam General Appearance: Moderate Distress HEENT: Pale Conjuntivae (L), Pale Conjuntivae (R), Pharynx Normal, TMs Normal Neck: Full Range of Motion, Non-Tender, Normal, Normal Inspection Respiratory: Chest Non-Tender, Lungs Clear, No Accessory Muscle Use, No Respiratory Distress, Normal Breath Sounds Cardiovascular: No Edema, No JVD, No Murmur, No Gallop, Normal Peripheral Pulses, Regular Rate/Rhythm Breast Exam: Deferred Gastrointestinal: No Organomegaly, Non Tender, No Pulsatile Mass, Normal Bowel Sounds, Soft Genitalia: Deferred Pelvic: Deferred Rectal: Deferred Extremities: No calf tenderness, Normal capillary refill, Normal inspection, Normal range of motion, Non-tender, No pedal edema Musculoskeletal : Apperance: Normal Neurologic: Alert, bartenders II-XII nml as Tested, Motor Weakness, Normal Affect, Normal Mood, No Sensory Deficits Cerebellar Function: Normal Reflexes: Normal Skin: Dry, Normal Color, Warm Lymphatic: No Adenopathy Was a procedure done? Was a procedure done?: No Differential Diagnosis (RN TRANSITIONAL CARE) Vaginal Bleeding: Blood Loss Anemia, Cervicitis, Dysmenorrhea, Hormonal, Menorrhagia, Menometrorrhagia, Menstrual Bleeding, Myomatous Uterus, PID X-Ray, Labs, Meds, VS Vital Signs Date Time Temp Pulse Resp B/P (MAP) Pulse Ox O2 Delivery O2 Flow Rate FiO2 01/31/25 17:12 74 18 73/41 (52) 97 01/31/25 15:24 97.6 78 16 91/54 100 97.6 Lab Test 01/31/25 16:15 Range/Units White Blood Count 10.0 4.4-10.8 10^3/uL Red Blood Count 2.60 L 4.0-5.20 10^6/uL Hemoglobin 8.0 #L 12.2-16.2 g/dL Hematocrit 23.1 #L 36.0-46.0 % Mean Corpuscular Volume 88.9 80.0-100.0 fL Mean Corpuscular Hemoglobin 30.7 28.0-32.0 pg Mean Corpuscular Hemoglobin Concent 34.5 32.0-36.0 g/dL Red Cell Distribution Width 14.5 H 11.8-14.3 % Platelet Count 162 140-450 10^3/uL Mean Platelet Volume 11.9 H 6.9-10.8 fL Neutrophils (%) (Auto) 66.5 37.0-80.0 % Lymphocytes (%) (Auto) 24.2 10.0-50.0 % Monocytes (%) (Auto) 8.9 0.0-12.0 % Eosinophils (%) (Auto) 0.1 0.0-7.0 % Basophils (%) (Auto) 0.3 0.0-2.0 % Neutrophils # (Auto) 6.7 1.6-8.6 10 ^3/uL Lymphocytes # (Auto) 2.4 0.4-5.4 10 ^3/uL Monocytes # (Auto) 0.9 0-1.3 10 ^3/uL Eosinophils # (Auto) 0 0-0.8 10 ^3/uL Basophils # (Auto) 0 0-0.2 10 ^3/uL Nucleated Red Blood Cells 0.2 % Prothrombin Time 12.0 H 9.3-11.8 sec Prothrombin Time INR 1.15 0.9-1.15 Activated Partial Thromboplast Time 24.7 24.5-34.5 SEC Sodium Level 140 136-145 mmol/L Potassium Level 3.2 L 3.5-5.1 mmol/L Chloride Level 112 H 98-107 mmol/L Carbon Dioxide Level 22 20-31 mmol/L Anion Gap 6 5-15 Blood Urea Nitrogen 9 9-23 mg/dL Creatinine 1.06 H 0.550-1.02 mg/dL Glomerular Filtration Rate Calc 67 >90 mL/min BUN/Creatinine Ratio 8.5 L 10.0-20.0 Serum Glucose 112 H 74-106 mg/dL Calcium Level 8.6 L 8.7-10.4 mg/dL The patient's CBC shows anemia with a hemoglobin of 8 and hematocrit of 23.1 The platelets are 162 The patient has hypokalemia at 3.2 The patient has an IV Hep-Lock being established We are going to typed and screen the patient and transfuse the patient with the a 1 unit packed red blood cells At this time the patient will be signed out to Dr. Weiss We did speak with Dr. Meier and the patient will be admitted to the hospitalist. She will consult on the patient she did recommend the patient receive tranexamic acid Time of 1ST Reevaluation: 16:02 Reevaluation 1ST: Unchanged Consultation: Other Patient Education/Counseling: Diagnosis, Treatment, Prognosis Family Education/Counseling: No Family Present Departure 1 Departure Time of Disposition: 17:46 Impression: Primary Impression: Vaginal bleeding Additional Impressions: Severe anemia Fibroid tumor Disposition: ADMITTED INPATIENT Admit to: Med Surg Condition: Fair Critical Care Note Critical Care Time?: No Stability Stability form required: Yes Unstable for transfer: ED Physician Assesment (Clinical assesment) I personally scribed for JAMES KIMBROUGH MD ([email or web address]) on 01/31/25 at 16:03. Electronically submitted by Mandy German ([facility]). JAMES KIMBROUGH MD Jan 31, 2025 16:03
[2025-01-31 16:45] LABS: Hematocrit 23.1 % (36.0-46.0); Hemoglobin 8.0 g/dL (12.2-16.2); Mean Corpuscular Hemoglobin 30.7 pg (28.0-32.0); Mean Corpuscular Volume 88.9 fL (80.0-100.0); Nucleated Red Blood Cells % 0.2 %
[2025-01-31 16:49] LABS: Sodium 140 mmol/L (136-145)
[2025-01-31 16:50] LABS: Anion Gap 6 (5-15); Carbon Dioxide 22 mmol/L (20-31)
[2025-01-31 16:55] LABS: BUN/Creatinine Ratio 8.5 (10.0-20.0); Blood Urea Nitrogen 9 mg/dL (9-23); Calcium 8.6 mg/dL (8.7-10.4); Chloride 112 mmol/L (98-107); Glucose 112 mg/dL (74-106); Potassium 3.2 mmol/L (3.5-5.1)
[2025-01-31 17:14] LABS: INR 1.15 (0.9-1.15); Partial Thromboplastin Time 24.7 SEC (24.5-34.5); Prothrombin Time 12.0 sec (9.3-11.8)
[2025-01-31] MEDS: POTASSIUM CHL 20 Meq TABLET PO ONE (20:30)
[2025-01-31] MEDS: TRANEXAMIC ACID 1,000 MG in SODIUM CHL 0.9% 100 ML IV ONE (20:50)
[2025-01-31] MEDS ORDERED: HYDROmorphone HCL 2 MG/ML VL/or syr IV PRN (21:45)
[2025-01-31] MEDS: SODIUM CHLORIDE 0.9% 1,000 ML IV ONE (21:45)
[2025-01-31] MEDS ORDERED: HYDROmorphone HCL 2 MG/ML VL/or syr IV ONE (21:45)
--- NOTE | 2025-01-31 22:15 | DVH ---
CHEST RADIOGRAPH Indication: sob Technique: Single frontal view of the chest was obtained COMPARISON: XY CHEST XRAY 1 VIEW on DOS: 11/03/24, XY CHEST XRAY 1 VIEW on DOS: 01/22/24, XY CHEST PORTABLE on DOS: 03/02/23, XY CHEST PORTABLE on DOS: 12/16/22, CXR2 on DOS: 12/10/21 FINDINGS: Right chest wall pacing device with lead tips unchanged. Lungs and pleural spaces are clear. Cardiac silhouette is enlarged but unchanged. No pulmonary edema. Bones and soft tissues demonstrate no significant abnormality. IMPRESSION: Cardiomegaly without overt pulmonary edema.
[2025-01-31 22:16] LABS: Alanine Aminotransferase 27.0 U/L (7-40); Albumin 4.2 g/dL (3.2-4.8); Alkaline Phosphatase 47.0 U/L (46-116); Bilirubin, Direct 0.2 mg/dL (<0.3); Bilirubin, Total 0.5 mg/dL (0.2-1.0); Magnesium 2.0 mg/dL (1.6-2.6); Total Protein 6.3 g/dL (5.7-8.2)
[2025-01-31] MEDS: ATORVASTATIN 20 MG TAB PO ONE (22:43)
--- NOTE | 2025-01-31 23:29 | DVHHPRES ---
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 Patient reports having heavy menstrual bleeding for 1 month 1 week, with passage of heavy clots, uses 6 big pads/day and today reports she felt more dizzy than usual and could not get out of bed. Bleeding is also associated with nausea, shortness of breaths, and lower abdominal cramps 10/10 intensity, nonradiating with no aggravating or relieving factors. She reports she has been visiting her OBGYN doctor who has scheduled her for surgical ablation of her uterine fibroids (on 02/09/2025) but she is pending cardiac clearnance. Patient denies any chest pain, vomiting, urinary symptoms. PMH: As stated above PSH: Pacemaker Family history: Reviewed, noncontributory to the management of this case Social history: Patient denies any smoking, drinking or illicit drug abuse Home medications: Metoprolol succinate 25, spironolactone, hydrochlorothiazide 25 mg b.i.d., lisinopril 10 mg, Eliquis 5 mg, aspirin 81 mg, furosemide 40 mg b.i.d. Allergies: Penicillin, clindamycin Code status: Full code Review of Systems Constitutional: Yes: Other (Dizziness, per vaginal heavy bleeding); No: Fever, Chills, Sweats, Weakness, Malaise Eyes: No: Pain, Vision change, Conjunctivae inflammation, Eyelid inflammation, Other, Redness ENT: No: Ear pain, Ear discharge, Nose pain, Nose discharge, Nose congestion, Mouth pain, Mouth swelling, Throat pain, Throat swelling, Other Respiratory: No: Cough, Dry, Shortness of breath, SOB with excertion, Wheezing, Hemoptysis, Pleuritic Pain, Sputum, Wheezing, Other Cardiovascular: No: Chest Pain, Palpitations, Orthopnea, Paroxysmal Noc. Dyspnea, Edema, Lt Headedness, Other Gastrointestinal: Abdominal Pain; No: Nausea, Vomiting, Diarrhea, Constipation, Melena, Hematochezia, Other Genitourinary: No Dysuria, No Frequency, No Incontinence, No Hematuria, No Retention, No Other Musculoskeletal: No: other, neck pain, shoulder pain, arm pain, back pain, hand pain, leg pain, foot pain Skin: No: Rash, Lesions, Jaundice, Bruising, Other Neurological: No: Weakness, Numbness, Incoordination, Change in speech, Confusion, Seizures, Other Allergies: Coded Allergies: Clindamycin (Verified Allergy, Unknown, 11/03/24) Penicillins (Verified Allergy, Unknown, 06/28/19) Medications Current Medications Medications Dose Ordered Sig/Marli Route Start Time Stop Time Status Last Admin Dose Admin Ondansetron HCl 4 mg Q4HP PRN IV 01/31/25 21:45 Acetaminophen/ Hydrocodone Bitart 1 tab Q4HPRN PRN PO 01/31/25 21:45 Hydromorphone HCl 0.25 mg Q4HPRN PRN IV 01/31/25 21:45 Amiodarone HCl 200 mg Q12HR PO 02/01/25 10:00 Atorvastatin Calcium 20 mg HS PO 02/01/25 22:00 Iron Sucrose 110 ml @ 110 mls/hr DAILY@1200 IV 02/01/25 12:00 02/05/25 12:59 Exam Vital Signs Vital Signs Date Time Temp Pulse Resp B/P (MAP) Pulse Ox O2 Delivery O2 Flow Rate FiO2 01/31/25 21:13 97.0 70 20 81/46 (58) 100 97.0 01/31/25 20:39 Room Air* 0 21 Exam General Appearance: Alert, Oriented X3, Cooperative, slightly distressed, pale HEENT: Atraumatic, Mucous membranes moist/pink, conjunctival pallor present Respiratory: Clear to auscultation, Normal air movement, No added sounds Cardiovascular: Regular rate, Normal S1, Normal S2, No murmurs Abdominal: Active bowel sounds, Soft, no distention, tenderness in the suprapubic region on palpation Extremities: No edema, Normal pulses, No tenderness/swelling Skin: No Significant rash, except past surgical scars Neuro: Normal speech, sensorimotor deficits none Psych/Mental Status: Mental status NL, Mood NL Rectal examination: Done in the presence of a admitting office escort. On digital examination- No external hemorrhoids, normal sphincter tone, empty rectal wall with no masses,no impacted stool felt, absence of bleeding Labs/Xrays Labs Test 01/31/25 16:15 Range/Units White Blood Count 10.0 4.4-10.8 10^3/uL Red Blood Count 2.60 L 4.0-5.20 10^6/uL Hemoglobin 8.0 #L 12.2-16.2 g/dL Hematocrit 23.1 #L 36.0-46.0 % Mean Corpuscular Volume 88.9 80.0-100.0 fL Mean Corpuscular Hemoglobin 30.7 28.0-32.0 pg Mean Corpuscular Hemoglobin Concent 34.5 32.0-36.0 g/dL Red Cell Distribution Width 14.5 H 11.8-14.3 % Platelet Count 162 140-450 10^3/uL Mean Platelet Volume 11.9 H 6.9-10.8 fL Neutrophils (%) (Auto) 66.5 37.0-80.0 % Lymphocytes (%) (Auto) 24.2 10.0-50.0 % Monocytes (%) (Auto) 8.9 0.0-12.0 % Eosinophils (%) (Auto) 0.1 0.0-7.0 % Basophils (%) (Auto) 0.3 0.0-2.0 % Neutrophils # (Auto) 6.7 1.6-8.6 10 ^3/uL Lymphocytes # (Auto) 2.4 0.4-5.4 10 ^3/uL Monocytes # (Auto) 0.9 0-1.3 10 ^3/uL Eosinophils # (Auto) 0 0-0.8 10 ^3/uL Basophils # (Auto) 0 0-0.2 10 ^3/uL Nucleated Red Blood Cells 0.2 % Prothrombin Time 12.0 H 9.3-11.8 sec Prothrombin Time INR 1.15 0.9-1.15 Activated Partial Thromboplast Time 24.7 24.5-34.5 SEC Sodium Level 140 136-145 mmol/L Potassium Level 3.2 L 3.5-5.1 mmol/L Chloride Level 112 H 98-107 mmol/L Carbon Dioxide Level 22 20-31 mmol/L Anion Gap 6 5-15 Blood Urea Nitrogen 9 9-23 mg/dL Creatinine 1.06 H 0.550-1.02 mg/dL Glomerular Filtration Rate Calc 67 >90 mL/min BUN/Creatinine Ratio 8.5 L 10.0-20.0 Serum Glucose 112 H 74-106 mg/dL Calcium Level 8.6 L 8.7-10.4 mg/dL Magnesium Level 2.0 1.6-2.6 mg/dL Total Bilirubin 0.5 0.2-1.0 mg/dL Direct Bilirubin 0.2 <0.3 mg/dL Aspartate Amino Transferase (AST) 15 13-40 U/L Alanine Aminotransferase (ALT) 27 7-40 U/L Alkaline Phosphatase 47 46-116 U/L B-Type Natriuretic Peptide 127.08 0-100 pg/mL Total Protein 6.3 5.7-8.2 g/dL Albumin 4.2 3.2-4.8 g/dL SEPSIS Sepsis Screen Date sepsis recognized/suspect: Jan 31, 2025 Time Sepsis recognized/suspect: 2115 Recent Procedure: No On Antibiotic Therapy: No Respiratory Rate >20: No Heart Rate >90: No Temp<36 C (96.8 F) or >38.3 C: No SBP <90 or MAP <65 mmHG: No New Acute Mental Status Change: No Is the patient on CPAP, BIPAP,: No Physician Orders Heplock Iv (01/31/25 16:01) Pulse Oximetry (01/31/25 16:01) Refining Engineer (01/31/25 16:01) Blood Pressure (01/31/25 16:01) Type And Screen (01/31/25 16:01) Obtain Consent For: (01/31/25 17:39) Administer Blood Products UD (01/31/25 17:39) Admit (01/31/25 21:43) Code Status (01/31/25 21:43) Ondansetron Hcl (Zofran) (01/31/25 21:45) Complete Blood Count (02/01/25 04:00) Comprehensive Metabolic Panel (02/01/25 04:00) Cardiac Diet-2gna,Lofat,Lochol (02/01/25 Breakfast) Notify Of Changes From Base (01/31/25 21:43) Repairer For 24 Hours (01/31/25 21:43) Emergency Dysrhythmia Protocol (01/31/25 21:43) Chest Xray 1 View (01/31/25 21:43) Hydrocodone-Acet 5/325mg Tab ([place] /32 (01/31/25 21:45) Hydromorphone Injection (Dilaudid Inject (01/31/25 21:45) Urinalysis (01/31/25 21:50) Amiodarone Tablet (Cordarone Tablet) (02/01/25 10:00) Iron Sucrose Complex (Venofer) (02/01/25 12:00) Echo 2d Mode Cardiac Dop (01/31/25 21:50) * Telehealth Coordinator Consultation (01/31/25 21:50) Hemoglobin & Hematocrit (01/31/25 21:50) Atorvastatin (Lipitor) (02/01/25 22:00) Vital Signs Date Time Temp Pulse Resp B/P (MAP) Pulse Ox O2 Delivery O2 Flow Rate FiO2 01/31/25 21:13 97.0 70 20 81/46 (58) 100 97.0 01/31/25 20:39 Room Air* 0 21 01/31/25 20:39 97.7 73 16 98/39 (58) 100 97.7 01/31/25 18:03 93/33 (53) 01/31/25 17:12 74 18 73/41 (52) 97 Laboratory Tests Test 01/31/25 16:15 White Blood Count 10.0 10^3/uL (4.4-10.8) Medications Medications Dose Ordered Sig/Marli Route Start Time Stop Time Status Last Admin Dose Admin Atorvastatin Calcium 20 mg ONCE ONCE PO 01/31/25 22:00 01/31/25 22:21 DC 01/31/25 22:43 20 MG Potassium Chloride 40 meq ONCE ONCE PO 01/31/25 17:45 01/31/25 17:46 DC 01/31/25 20:30 40 MEQ Sodium Chloride 1,000 ml @ 1,000 mls/hr Q1H ONCE IV 01/31/25 21:45 01/31/25 22:44 DC 01/31/25 21:45 1,000 MLS/HR Tranexamic Acid 1000 mg/Sodium Chloride 110 ml @ 300 mls/hr ONCE ONCE IV 01/31/25 17:45 01/31/25 18:06 DC 01/31/25 20:50 300 MLS/HR Assessment/Plan Assessment/Plan # Blood loss anemia due to abnormal uterine bleeding # Pedunculated Uterine fibroid causing above # Shock due to above - 1 time tranexamic acid 1000 mg in NS given - IV fluids NS 0.9%- 3 litres administered - IV albumin 25% 100 mL - Levophed to maintain MAP above 65 - 1 FFP - type and screen - hemoglobin dropped from 8 to 6.4- 1 unit PRBC transfused - repeat H&H - Spoke to OBGYN Dr. Marcelo overnight, suggested 1 more dose of tranexamic acid 1000 mg in NS, 25 mg Premarin IV q.4 and total 3 units PRBC transfusion - last USG done on 01/25/2025 shows pedunculated uterine fibroid in the fundus - Dilaudid 0.25 mg q.4 PRN for pain hold due to low BP - [place] 5/325 mg q.4 PRN for moderate pain - ondansetron 4 mg q.4 PRN # Hypertensive heart disease # Dyslipidemia # Atrial Fibrillation S/P cardiac ablation x2 #Hx Congenital heart disease- transposition of the great vessels surgically corrected during childhood # Hx of epicardial pacemaker for RBBB # Hx of Severe Pulmonary hypertension # Hx of TIA - patient has low BP, all BP medications held for now - therapeutic Lovenox not begun due to heavy bleeding and low hemoglobin - continue home medication amiodarone 200 mg p.o. b.i.d. - continue home medication atorvastatin 20 mg p.o. daily HS - echo #Hypokalemia -Repleted - magnesium - monitor # Obesity, BMI 26.4kg/m2 - patient counseled regarding weight loss, lifestyle modification and exercise for over 8 minutes DVT prophylaxis: on hold as patient has severe bleeding Diet: cardiac diet Goals of care discussed with the patient for more than 27 minutes: Full code status Case discussed with Dr. Jaquez, patient Plan discussed with: Patient My Orders Orders - DAVE NOEL RESIDENT Procedure Category Date Status Time Admit ADMIT 01/31/25 Transmitted 21:43 Code Status CODE 01/31/25 Transmitted 21:43 Ondansetron Hcl PHA 01/31/25 In Process (Zofran) 21:45 Complete Blood Count LAB 02/01/25 Verified 04:00 Comprehensive LAB 02/01/25 Verified Metabolic Panel 04:00 Cardiac DIET 02/01/25 Transmitted Diet-2gna,Lofat,Lochol Breakfast Notify Of Changes [facility] 01/31/25 In Process From Base 21:43 Repairer For MARINA 01/31/25 In Process 24 Hours 21:43 Emergency Dysrhythmia [place] 01/31/25 In Process Protocol 21:43 Chest Xray 1 View XY 01/31/25 Resulted 21:43 Hydrocodone-Acet PHA 01/31/25 In Process 5/325mg Tab ([place] 21:45 Hydromorphone PHA 01/31/25 In Process Injection (Dilaudid 21:45 Urinalysis LAB 01/31/25 Logged 21:50 Amiodarone Tablet PHA 02/01/25 In Process (Cordarone Tablet) 10:00 Iron Sucrose Complex PHA 02/01/25 In Process (Venofer) 12:00 Echo 2d Mode Cardiac US 01/31/25 Logged DOP 21:50 * Telehealth Coordinator Consultation CONS 01/31/25 Transmitted 21:50 Hemoglobin & LAB 01/31/25 Logged Hematocrit 21:50 Atorvastatin (Lipitor) PHA 02/01/25 In Process 22:00 Date of Service: Feb 01, 2025 Billing Provider: PALMA JAQUEZ MD Common Visit Codes: [id number] INP/OBS CARE (HIGH) Secondary Visit Codes: [id number] CARE PLAN 30 MINUTES DAVE NOEL RESIDENT Jan 31, 2025 23:29 CYRIL ALLEN RESIDENT Feb 01, 2025 06:43
[2025-02-01] VITALS (29 sets, daily range): BP systolic 62–113; BP diastolic 36–65; PULSE 69–86; RESP 12–32; TEMP 97.7–99; O2SAT 93–99
[2025-02-01] MEDS: SODIUM CHLORIDE 0.9% 1,000 ML IV ONE ×3 (00:05→02:03)
[2025-02-01] MEDS: MIDODRINE HCL 10 MG TAB PO ONE (00:12)
[2025-02-01] MEDS: ALBUMIN 25% 100 ML IV ONE (00:20)
[2025-02-01 00:56] LABS: Hematocrit 19.4 % (36.0-46.0)
[2025-02-01 01:00] LABS: Hemoglobin 6.4 g/dL (12.2-16.2)
[2025-02-01] MEDS: TRANEXAMIC ACID 1,000 MG in SODIUM CHL 0.9% 100 ML IV ONE (01:49)
[2025-02-01] MEDS: TRANEXAMIC ACID 10 ML ONE (01:50)
[2025-02-01] MEDS: ESTROGENS, CONJUGATED 25 MG VIAL IV SCH (01:52)
[2025-02-01] MEDS: NOREPINEPHRINE 8 MG/250ML KIT 250 ML IV SCH (03:15)
[2025-02-01] MEDS: LACTATED RINGER'S 1,000 ML IV ONE (04:48)
[2025-02-01] MEDS: HYDROcodone-ACET 5/325MG TAB PO PRN (05:11)
[2025-02-01 07:01] LABS: Mean Corpuscular Volume 90.7 fL (80.0-100.0); Nucleated Red Blood Cells % 0.3 %
[2025-02-01 07:04] LABS: Hematocrit 24.2 % (36.0-46.0); Hemoglobin 8.3 g/dL (12.2-16.2); Mean Corpuscular Hemoglobin 31.0 pg (28.0-32.0)
[2025-02-01 07:23] LABS: Alanine Aminotransferase 20 U/L (7-40); Anion Gap 9 (5-15); BUN/Creatinine Ratio 9.4 (10.0-20.0); Glucose 98 mg/dL (74-106); Potassium 4.2 mmol/L (3.5-5.1); Sodium 144 mmol/L (136-145)
[2025-02-01 07:25] LABS: Albumin 3.6 g/dL (3.2-4.8)
[2025-02-01 07:30] LABS: Bilirubin, Total 1.3 mg/dL (0.2-1.0); Blood Urea Nitrogen 8 mg/dL (9-23); Calcium 7.8 mg/dL (8.7-10.4); Carbon Dioxide 19 mmol/L (20-31); Chloride 116 mmol/L (98-107); Total Protein 5.4 g/dL (5.7-8.2)
[2025-02-01 07:34] LABS: Alkaline Phosphatase 35 U/L (46-116)
--- NOTE | 2025-02-01 07:42 | DVH ---
INDICATION: sob TECHNIQUE: Single frontal view of the chest was obtained COMPARISON: XY CHEST XRAY 1 VIEW on DOS: 01/31/25, XY CHEST XRAY 1 VIEW on DOS: 11/03/24, XY CHEST XRAY 1 VIEW on DOS: 01/22/24, XY CHEST PORTABLE on DOS: 03/02/23, XY CHEST PORTABLE on DOS: 12/16/22 FINDINGS: Right chest wall pacing device with lead tips unchanged. Lungs and pleural spaces are clear. Cardiac silhouette is enlarged but unchanged. Mild pulmonary edema. Bones and soft tissues demonstrate no significant abnormality. IMPRESSION: Cardiomegaly with pulmonary edema.
[2025-02-01] MEDS: FUROSEMIDE 40 MG/4 ML VIAL IV ONE (08:20)
[2025-02-01 09:53] LABS: Urine Protein, UAD 1+ (Negative)
[2025-02-01] MEDS: AMIODARONE HCL 200 MG TAB PO SCH (09:58)
--- NOTE | 2025-02-01 11:19 | DVHPN2 ---
Subjective Patient denies any symptoms at this time. Reviewed: Care Plan, H&P, Labs, Medications, Previous Orders Changes from previous H/P or p: No Changes General: Per HPI Eyes: No Pain, No Vision change, No Conjunctivae inflammation, No Eyelid inflammation, No Other, No Redness ENT: No Ear pain, No Ear discharge, No Nose pain, No Nose discharge, No Nose congestion, No Mouth pain, No Mouth swelling, No Throat pain, No Throat swelling, No Other Cardiovascular: No Chest Pain, No Palpitations, No Orthopnea, No Paroxysmal Noc. Dyspnea, No Edema, No Lt Headedness, No Other Respiratory: No Cough, No Dry, No Shortness of breath, No SOB with excertion, No Wheezing, No Hemoptysis, No Pleuritic Pain, No Sputum, No Other Gastrointestinal: No Nausea, No Vomiting; Abdominal Pain; No Diarrhea, No Constipation, No Melena, No Hematochezia, No Other Genitourinary: No Dysuria, No Frequency, No Incontinence, No Hematuria, No Retention, No Other Musculoskeletal: No other, No neck pain, No shoulder pain, No arm pain, No back pain, No hand pain, No leg pain, No foot pain Skin: No Rash, No Lesions, No Jaundice, No Bruising, No Other Objective Vitals Vital Signs Date Time Temp Pulse Resp B/P (MAP) Pulse Ox O2 Delivery O2 Flow Rate FiO2 02/01/25 11:00 98.6 70 16 99/52 98.6 02/01/25 08:45 94 02/01/25 07:20 Room Air* 0 21 Intake/Output Intake and Output 02/01/25 07:00 Intake Total 1767.5 ml Balance 1767.5 ml Intake Oral 240 ml IV Total 227.5 ml Blood Product 900 ml Other 400 ml General Appearance: Alert, Oriented X3, Cooperative, No acute distress HEENT: Atraumatic, PERRLA Lungs: Clear to auscultation, Normal air movement Cardiovascular: Normal S1, Normal S2 Abdomen: Normal bowel sounds, Soft, No tenderness, No hepatospenomegaly Musculoskeletal: Normal sensory function, Normal motor function Neuro: Normal gait, Normal speech Skin: Dry, Intact Psych/Mental Status: Mental status NL, Mood NL Medications Current Medications Medications Dose Ordered Sig/Marli Route Start Time Stop Time Status Last Admin Dose Admin Ondansetron HCl 4 mg Q4HP PRN IV 01/31/25 21:45 Acetaminophen/ Hydrocodone Bitart 1 tab Q4HPRN PRN PO 01/31/25 21:45 02/01/25 09:59 1 TAB Hydromorphone HCl 0.25 mg Q4HPRN PRN IV 01/31/25 21:45 Amiodarone HCl 200 mg Q12HR PO 02/01/25 10:00 02/01/25 09:58 200 MG Atorvastatin Calcium 20 mg HS PO 02/01/25 22:00 Iron Sucrose 110 ml @ 110 mls/hr DAILY@1200 IV 02/01/25 12:00 02/05/25 12:59 Estrogens Conjugated 25 mg Q4HR IV 02/01/25 02:00 02/02/25 01:30 02/01/25 09:58 25 MG Norepinephrine Bitartrate 250 ml @ 3.75 mls/hr Q24H IV 02/01/25 03:15 02/01/25 06:20 3.75 MLS/HR Laboratory Results Laboratory Tests 02/01/25 06:21 Chemistry Test 01/31/25 16:15 02/01/25 06:21 Albumin 4.2 g/dL (3.2-4.8) 3.6 g/dL (3.2-4.8) Calcium Level 8.6 mg/dL (8.7-10.4) L 7.8 mg/dL (8.7-10.4) L Magnesium Level 2.0 mg/dL (1.6-2.6) Total Protein 6.3 g/dL (5.7-8.2) 5.4 g/dL (5.7-8.2) L Coagulation Test 01/31/25 16:15 Prothrombin Time 12.0 sec (9.3-11.8) H Prothrombin Time INR 1.15 (0.9-1.15) Activated Partial Thromboplast Time 24.7 SEC (24.5-34.5) Cardiac Markers Test 01/31/25 16:15 B-Type Natriuretic Peptide 127.08 pg/mL (0-100) LFT Test 01/31/25 16:15 02/01/25 06:21 Alanine Aminotransferase (ALT) 27 U/L (7-40) 20 U/L (7-40) Alkaline Phosphatase 47 U/L (46-116) 35 U/L (46-116) L Aspartate Amino Transferase (AST) 15 U/L (13-40) 15 U/L (13-40) Direct Bilirubin 0.2 mg/dL (<0.3) Total Bilirubin 0.5 mg/dL (0.2-1.0) 1.3 mg/dL (0.2-1.0) H Urinalysis Test 01/31/25 09:31 Urine Color Light-red (Yellow) Urine Clarity Ex.turbid (Clear) Urine pH 6.0 (5.0-9.0) Urine Specific [place] 1.015 (1.001-1.035) Urine Protein 1+ (Negative) H Urine Ketones Trace (Negative) Urine Blood 3+ /uL (Negative) H Urine Nitrite Negative (Negative) Urine Bilirubin Negative (Negative) Urine Urobilinogen Normal mg/dL (Negative) Urine Leukocyte Esterase 1+ /uL (Negative) Urine RBC 74169 /hpf (0 - 4) Urine Microscopic WBC 3 /HPF (0-5) Urine Squamous Epithelial Cells None seen /hpf (<5) Urine Bacteria None seen /hpf (None Seen) Urine Glucose Normal mg/dL (Normal) Labs and/or images reviewed: Labs reviewed by me, Image(s) reviewed by me Assessment/Plan Assessment/Plan Impression: -hemorrhagic shock due to bleeding uterine fibroid -correction of transposition of great vessels -pulmonary hypertension -pulmonary vascular congestion -history of pacemaker implant -atrial fibrillation with previous ablation and current anticoagulation with Eliquis Plan: -patient receiving FFP, H&H to follow -continue norepinephrine drip. Weaned off vasopressor, with goal map greater than 65 mm of mercury -continue Premarin injection -cardiology consultation -hold Eliquis -OBGYN consultation: Recommendations appreciated -repeat labs in a.m. Critical care time spent with patient discussing and formulating plan of care: 40 minutes. This does not include time spent performing procedures. This medical document was created using an electronic medical record system with [employer] system. Although this document has been carefully reviewed, there may still be some phonetic and typographical errors. These areas are purely typographical due to imperfections of the software programs, and do not reflect any compromise in the patient's medical care. Plan discussed with: Patient, Other (RN) My Orders Orders - ELMER VELASQUEZ NP Procedure Category Date Status Time Test, Urine LAB 02/01/25 Logged 10:37 Hemoglobin & LAB 02/01/25 Logged Hematocrit 13:00 Complete Blood Count LAB 02/02/25 Verified 04:00 Comprehensive LAB 02/02/25 Verified Metabolic Panel 04:00 *Consult CONS 02/01/[address]Mukeshchandra Gregory 11:13 Date of Service: Feb 01, 2025 Billing Provider: ELMER VELASQUEZ NP Common Visit Codes: [id number] CARE 30-74 MIN ELMER VELASQUEZ NP Feb 01, 2025 11:19
--- NOTE | 2025-02-01 12:15 | DVHINCON2 ---
REASON FOR CONSULTATION: Abnormal uterine bleeding. HISTORY OF PRESENT ILLNESS: The patient is a 44-year-old ____ female admitted for menorrhagia and anemia. The patient's hemoglobin was 6, hematocrit of 19. Sonogram reveals 9-week sized uterus. The patient is scheduled for hysterectomy this month by Dr. Zavala. Her last Pap was recent according to her. She has multiple complicated medical history. PAST MEDICAL HISTORY: Hypertension, CVA, CHF, transposition of the great vessels, congestive heart failure and pacemaker. PAST SURGICAL HISTORY: Pacemaker placement. SOCIAL HISTORY: ____. FAMILY HISTORY: Positive for diabetes and hypertension. REVIEW OF SYSTEMS: Consistent with HPI. PHYSICAL EXAMINATION: GENERAL: The patient is alert and oriented. HEENT: Pale conjunctivae. CARDIOVASCULAR: Regular rate and rhythm. LUNGS: Clear to auscultation. BREASTS: Symmetrical. No masses. ABDOMEN: Obese, nontender. PELVIC: External genitalia within normal limits. Vagina, no active bleeding noted. Cervix, no active bleeding noted. Uterus: 9 weeks' size. EXTREMITIES: No clubbing, cyanosis, or edema. IMPRESSION: Menorrhagia with anemia. RECOMMENDATION: The patient received 2 units of PRBC, TXA. Currently, she appears stable. I advised the patient to follow up with [facility] as soon as possible as the patient is scheduled for hysterectomy. We will sign off. Thank you very much for this consultation. DO ALLEN Roy/FABY TID: [id number] RECEIPT: [id number]
[2025-02-01 13:47] LABS: Hematocrit 28.6 % (36.0-46.0); Hemoglobin 9.7 g/dL (12.2-16.2)
[2025-02-01] MEDS: IRON SUCROSE COMPLEX 110 ML IV SCH (14:12)
[2025-02-01] MEDS: ONDANSETRON HCL 4 MG/2 ML VIAL IV PRN (19:23)
[2025-02-01] MEDS: ATORVASTATIN 20 MG TAB PO SCH (22:09)
[2025-02-01] MEDS: STERILE WATER 10 ML ONE (22:34)
--- NOTE | 2025-02-01 23:14 | DVHINCON2 ---
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), atrial fibrillation status post two cardiac ablations (on Eliquis), severe pulmonary hypertension, severe tricuspid regurgitation, history of pericardial effusion, hypertension, and obesity who presented to the ED with complaints of heavy vaginal bleeding associated with blood clots x 1 month. Patient reports expelling multiple blood clots described as bright red. Patient had a hysterectomy scheduled on 02/09/25, was originally scheduled on 01/25/25, however had to get cardiac clearance but could not get an appointment until 02/03/25. She mentions feeling very weak, dizzy and had near syncopes at home today. CBC shows anemia with a hemoglobin of 8 and hematocrit of 23.1. K 3.2. Patietn received 1 unit PRBC in the ED. Patient was admitted to the hospital. I am asked to consult on this patient. Family History: Patient reports no known family medical history. Allergies: Coded Allergies: Clindamycin (Verified Allergy, Unknown, 11/03/24) Penicillins (Verified Allergy, Unknown, 06/28/19) Home Meds Active Scripts Medroxyprogesterone Acetate (Medroxyprogesterone Aceta) 10 Mg Tab, 10 MG PO DAILY for 10 Days, #10 TAB Prov:LUCERO HDZ 01/25/25 Clindamycin Hcl (Clindamycin Hcl) 300 Mg Cap, 1 CAP PO TID for 7 Days, #21 CAP 0 Refills Prov:MONA JOHNSON 12/18/23 Acetaminophen (Acetaminophen) 500 Mg Tab, 500 MG PO Q4HPRN, #30 TAB 0 Refills Prov:MONA JOHNSON 12/18/23 Tobramycin Sulfate (Tobrex) [address], 2 DROP OP QID, #5 ML Prov:JOYCE HOOK 10/18/23 Acetaminophen (Tylenol 8 Hour Arthritis) 650 Mg Tab, 650 MG PO TID, #30 TAB Prov:JOYCE HOOK 10/18/23 Nitrofurantoin Monohydrate Mac (Macrobid) 100 Mg Cap, 100 MG PO BID for 7 Days, #14 CAP Prov:TULIO LOPEZ MD 11/14/21 Potassium Chloride (Potassium Chloride ER) 20 Meq Tab, 20 MEQ PO DAILY, #30 MG To be taken only only if you are on diuretics (that is hydrochlorothiazide). Prov:SHIRA VAZ MD 07/17/21 Ciprofloxacin Hcl (Cipro) 500 Mg Tab, 1 TAB PO BID, #10 TAB Prov:SHIRA VAZ MD 07/17/21 Hctz (Hydrochlorothiazide) 25 Mg Tab, 25 MG PO BID, #30 MG Hold for systolic blood pressure less than 100 Prov:SHIRA VAZ MD 07/17/21 Atenolol (Atenolol) 25 Mg Tab, 25 MG PO DAILY, #30 MG Prov:LARRY PLUMMER MD 04/02/21 Reported Medications Ferric Sulfate (Ferric Sulfate Hydrate) Sulfate Pow, 1 XX, POW 11/05/24 Lisinopril (Lisinopril) 10 Mg Tab, 10 MG PO DAILY, TAB 11/05/24 Metoprolol Succinate (Metoprolol Succinate Er) 25 Mg Tab, 25 MG PO DAILY for 30 Days, MG 11/05/24 Benzonatate (Benzonatate) 200 Mg Cap, 1 CAP PO TID 03/03/23 Dapagliflozin Propanediol (Farxiga) 10 Mg Tab, 10 MG PO, TAB 12/11/21 Spironolactone (Spironolactone) 25 Mg Tab, TAB PO DAILY, #90 TAB 1 Refill 12/11/21 Amiodarone Hcl (Amiodarone Hcl) 200 Mg Tab, 200 MG PO Q12HR for 30 Days 04/01/21 Apixaban Base (ELIQUIS) 5 Mg Tab, 5 MG PO BID, TAB 04/01/21 Current Medications Current Medications Medications (Trade) Dose Ordered Sig/Marli Route PRN Reason Start Time Stop Time Status Last Admin Amiodarone HCl (Cordarone Tablet) 200 mg Q12HR PO 02/01/25 10:00 02/01/25 22:09 Atorvastatin Calcium (Lipitor) 20 mg HS PO 02/01/25 22:00 02/01/25 22:09 Iron Sucrose 110 ml @ 110 mls/hr DAILY@1200 IV 11/10/25 12:00 02/05/25 12:59 02/01/25 14:12 Estrogens Conjugated (Premarin Injection) 25 mg Q4HR IV 02/01/25 02:00 02/02/25 01:30 02/01/25 22:02 Norepinephrine Bitartrate 250 ml @ 3.75 mls/hr Q24H IV 02/01/25 03:15 02/01/25 06:20 Review of Systems Constitutional: reports: weakness; denies: chills, diaphoresis, fatigue, fever, malaise, sweats, others EENTM: denies: blurred vision, double vision, ear bleeding, ear discharge, ear drainage, ear pain, ear ringing, eye pain, eye redness, hearing loss, mouth pain, mouth swelling, nasal discharge, nose bleeding, nose congestion, nose pain, photophobia, tearing, throat pain, throat swelling, voice changes, others Respiratory: denies: cough, hemoptysis, orthopnea, SOB at rest, shortness of breath, SOB with excertion, stridor, wheezing, others Cardiovascular: reports: lightheadedness; denies: chest pain, dizzy spells, diaphoresis, Dyspnea on exertion, edema, irregular heart beat, left arm pain, palpitations, PND, syncope, others Gastrointestinal: denies: abdomen distended, abdominal pain, blood streaked bowels, constipated, diarrhea, dysphagia, difficulty swallowing, hematemesis, melena, nausea, poor appetite, poor fluid intake, rectal bleeding, rectal pain, vomiting, others Genitourinary: reports: abnormal vagina bleeding; denies: burning, dyspareunia, dysuria, flank pain, frequency, hematuria, incontinence, pain, , vagina discharge, urgency, others Neurological: reports: dizziness; denies: fainting, headache, left sided numbness, left sided weakness, numbness, paresthesia, pre-existing deficit, right sided numbness, right sided weakness, seizure, speech problems, tingling, tremors, weakness, others Musculoskeletal: denies: back pain, gout, joint pain, joint swelling, muscle pain, muscle stiffness, neck pain, others Integumetry: denies: bruises, change in color, change in hair/nails, dryness, laceration, lesions, lumps, rash, wounds, others Allergic/Immunocompromised: denies: Difficulty Healing, Frequent Infections, Hives, Itching, others Hematologic/Lymphatic: denies: anemia, blood clots, easy bleeding, easy bru ising, swollen glands, others Endocrine: denies: excessive hunger, excessive sweating, excessive thirst, e xcessive urination, flushing, intolerance to cold, intolerance to heat, unexplained weight gain, unexplained weight loss, others Psychiatric: denies: anxiety, bipolar disorder, depression, hopeless, panic disorder, schizophrenia, sleepless, suicidal, others All Other Systems: Reviewed and Negative Vital Signs Vital Signs Date Time Temp Pulse Resp B/P (MAP) Pulse Ox O2 Delivery O2 Flow Rate FiO2 02/01/25 22:00 73 29 98/47 (64) 93 02/01/25 19:30 98.4 98.4 02/01/25 19:30 Room Air* 0 21 Physical Exam GENERAL: Alert and oriented x 3. No acute distress. Obesity. EYES: PERRL, EOMI. Anicteric. HENT: Moist mucous membranes. LUNGS: Clear to auscultation bilaterally. CARDIOVASCULAR: Regular rate and rhythm. ABDOMEN: Soft, non-tender and non-distended. EXTREMITIES: No edema. NEUROLOGIC: No focal neurological deficits. SKIN: Warm, dry. Labs/Diagnostic Data Labs Test 02/01/25 13:22 02/01/25 06:21 01/31/25 16:15 01/31/25 09:31 Range/Units Hemoglobin 9.7 #L 12.2-16.2 g/dL Hematocrit 28.6 #L 36.0-46.0 % White Blood Count 6.1 # 4.4-10.8 10^3/uL Red Blood Count 2.66 L 4.0-5.20 10^6/uL Mean Corpuscular Volume 90.7 80.0-100.0 fL Mean Corpuscular Hemoglobin 31.0 28.0-32.0 pg Mean Corpuscular Hemoglobin Concent 34.2 32.0-36.0 g/dL Red Cell Distribution Width 14.8 H 11.8-14.3 % Platelet Count 98 L 140-450 10^3/uL Mean Platelet Volume 12.0 H 6.9-10.8 fL Neutrophils (%) (Auto) 58.5 37.0-80.0 % Lymphocytes (%) (Auto) 32.6 10.0-50.0 % Monocytes (%) (Auto) 8.5 0.0-12.0 % Eosinophils (%) (Auto) 0.1 0.0-7.0 % Basophils (%) (Auto) 0.3 0.0-2.0 % Neutrophils # (Auto) 3.6 1.6-8.6 10 ^3/uL Lymphocytes # (Auto) 2.0 0.4-5.4 10 ^3/uL Monocytes # (Auto) 0.5 0-1.3 10 ^3/uL Eosinophils # (Auto) 0 0-0.8 10 ^3/uL Basophils # (Auto) 0 0-0.2 10 ^3/uL Nucleated Red Blood Cells 0.3 % Sodium Level 144 136-145 mmol/L Potassium Level 4.2 3.5-5.1 mmol/L Chloride Level 116 H 98-107 mmol/L Carbon Dioxide Level 19 L 20-31 mmol/L Anion Gap 9 5-15 Blood Urea Nitrogen 8 L 9-23 mg/dL Creatinine 0.85 0.550-1.02 mg/dL Glomerular Filtration Rate Calc 87 >90 mL/min BUN/Creatinine Ratio 9.4 L 10.0-20.0 Serum Glucose 98 74-106 mg/dL Calcium Level 7.8 L 8.7-10.4 mg/dL Total Bilirubin 1.3 H 0.2-1.0 mg/dL Aspartate Amino Transferase (AST) 15 13-40 U/L Alanine Aminotransferase (ALT) 20 7-40 U/L Alkaline Phosphatase 35 L 46-116 U/L Total Protein 5.4 L 5.7-8.2 g/dL Albumin 3.6 3.2-4.8 g/dL Prothrombin Time 12.0 H 9.3-11.8 sec Prothrombin Time INR 1.15 0.9-1.15 Activated Partial Thromboplast Time 24.7 24.5-34.5 SEC Magnesium Level 2.0 1.6-2.6 mg/dL Direct Bilirubin 0.2 <0.3 mg/dL B-Type Natriuretic Peptide 127.08 0-100 pg/mL Urine Color Light-red Yellow Urine Clarity Ex.turbid Clear Urine pH 6.0 5.0-9.0 Urine Specific [place] 1.015 1.001-1.035 Urine Protein 1+ H Negative Urine Ketones Trace Negative Urine Blood 3+ H Negative /uL Urine Nitrite Negative Negative Urine Bilirubin Negative Negative Urine Urobilinogen Normal Negative mg/dL Urine Leukocyte Esterase 1+ Negative /uL Urine RBC [id number] 0 - 4 /hpf Urine Microscopic WBC 3 0-5 /HPF Urine Squamous Epithelial Cells None seen <5 /hpf Urine Bacteria None seen None Seen /hpf Urine Glucose Normal Normal mg/dL Urine Test Negative Negative Assessment Hemorrhagic shock. Uterine fibroid bleeding. History of correction of transposition of great vessels. Pulmonary hypertension. Pulmonary vascular congestion. History of pacemaker implant Atrial fibrillation with previous ablation. Plan/Recommendation I agree with your ongoing assessment and care of plan. Echocardiogram. Dilaudid and Hallie for pain management. Amiodarone. Lipitor. Entresto. Vasopressors for hemodynamic support. Additional plan as per the hospital course. Critical care time of 90 minutes provided to include time spent evaluation of patient at bedside, when appropriate patient/family education for diagnosis, treatment plan, review of pertinent medical information and discussion of care with specialty providers and PCP. Plan discussed with: Patient MELISA DIXON MD Feb 01, 2025 23:14
[2025-02-02] VITALS (85 sets, daily range): BP systolic 81–118; BP diastolic 35–80; PULSE 70–90; RESP 12–29; TEMP 97.8–99.9; O2SAT 88–99
[2025-02-02 04:31] LABS: Hematocrit 27.1 % (36.0-46.0); Hemoglobin 9.3 g/dL (12.2-16.2); Mean Corpuscular Hemoglobin 30.5 pg (28.0-32.0); Mean Corpuscular Volume 89.1 fL (80.0-100.0); Nucleated Red Blood Cells % 0.3 %
[2025-02-02 04:41] LABS: Alanine Aminotransferase 22 U/L (7-40); Albumin 3.8 g/dL (3.2-4.8); Anion Gap 12 (5-15); BUN/Creatinine Ratio 9.2 (10.0-20.0); Carbon Dioxide 21 mmol/L (20-31); Glucose 106 mg/dL (74-106); Potassium 3.7 mmol/L (3.5-5.1); Sodium 142 mmol/L (136-145); Total Protein 5.8 g/dL (5.7-8.2)
[2025-02-02 04:46] LABS: Alkaline Phosphatase 42 U/L (46-116); Bilirubin, Total 1.3 mg/dL (0.2-1.0); Blood Urea Nitrogen 8 mg/dL (9-23); Calcium 8.5 mg/dL (8.7-10.4); Chloride 109 mmol/L (98-107)
--- NOTE | 2025-02-02 05:00 | DVHPN2 ---
Chief Complaints Patient reports: No new complaints, Feels better Nursing reports: No new complaints, No abdominal pain, No chest pain, No dizziness, No cough Objective Vitals Vital Signs Date Time Temp Pulse Resp B/P (MAP) Pulse Ox O2 Delivery O2 Flow Rate FiO2 02/02/25 04:00 28 93 Nasal Cannula* 1 24 02/02/25 04:00 70 02/02/25 04:00 95/38 (57) 02/02/25 00:00 99.9 99.9 Medications Current Medications Medications (Trade) Dose Ordered Sig/Marli Route PRN Reason Start Time Stop Time Status Last Admin Amiodarone HCl (Cordarone Tablet) 200 mg Q12HR PO 02/01/25 10:00 02/01/25 22:09 Atorvastatin Calcium (Lipitor) 20 mg HS PO 02/01/25 22:00 02/01/25 22:09 Iron Sucrose 110 ml @ 110 mls/hr DAILY@1200 IV 02/01/25 12:00 02/05/25 12:59 02/01/25 14:12 General: Normal Head/Eyes: Normal Lungs: Normal Abdominal: Normal Musculoskeletal: Normal Extremities: Normal Skin: Normal Neurological: Normal Studies Laboratory Tests 02/02/25 03:30 Test 02/02/25 03:30 Range/Units Serum Glucose 106 74-106 mg/dL Ass/Plan Assessment Menometrorrhagia no active bleeding hemoglobin stable Plan Follow up for her scheduled hysterectomy with 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
--- NOTE | 2025-02-02 09:16 | DVHPN2 ---
Subjective Patient denies any symptoms at this time. Reviewed: Care Plan, H&P, Labs, Medications, Previous Orders Changes from previous H/P or p: No Changes General: Per HPI Eyes: No Pain, No Vision change, No Conjunctivae inflammation, No Eyelid inflammation, No Other, No Redness ENT: No Ear pain, No Ear discharge, No Nose pain, No Nose discharge, No Nose congestion, No Mouth pain, No Mouth swelling, No Throat pain, No Throat swelling, No Other Cardiovascular: No Chest Pain, No Palpitations, No Orthopnea, No Paroxysmal Noc. Dyspnea, No Edema, No Lt Headedness, No Other Respiratory: No Cough, No Dry, No Shortness of breath, No SOB with excertion, No Wheezing, No Hemoptysis, No Pleuritic Pain, No Sputum, No Other Gastrointestinal: No Nausea, No Vomiting; Abdominal Pain; No Diarrhea, No Constipation, No Melena, No Hematochezia, No Other Genitourinary: No Dysuria, No Frequency, No Incontinence, No Hematuria, No Retention, No Other Musculoskeletal: No other, No neck pain, No shoulder pain, No arm pain, No back pain, No hand pain, No leg pain, No foot pain Skin: No Rash, No Lesions, No Jaundice, No Bruising, No Other Objective Vitals Vital Signs Date Time Temp Pulse Resp B/P (MAP) Pulse Ox O2 Delivery O2 Flow Rate FiO2 02/02/25 06:30 84/35 02/02/25 06:15 70 23 94 02/02/25 06:00 Nasal Cannula* 1 24 02/02/25 04:15 98.1 98.1 Intake/Output Intake and Output 02/02/25 07:00 Intake Total 1719.875 ml Output Total 1800 ml Balance -80.125 ml Intake Oral 200 ml IV Total 319.875 ml Blood Product 1200 ml Output Urine Total 1800 ml # Voids 1 General Appearance: Alert, Oriented X3, Cooperative, No acute distress HEENT: Atraumatic, PERRLA Lungs: Clear to auscultation, Normal air movement Cardiovascular: Normal S1, Normal S2 Abdomen: Normal bowel sounds, Soft, No tenderness, No hepatospenomegaly Musculoskeletal: Normal sensory function, Normal motor function Neuro: Normal gait, Normal speech Skin: Dry, Intact Psych/Mental Status: Mental status NL, Mood NL Medications Current Medications Medications Dose Ordered Sig/Marli Route Start Time Stop Time Status Last Admin Dose Admin Ondansetron HCl 4 mg Q4HP PRN IV 01/31/25 21:45 02/02/25 01:30 4 MG Acetaminophen/ Hydrocodone Bitart 1 tab Q4HPRN PRN PO 01/31/25 21:45 02/02/25 02:00 1 TAB Hydromorphone HCl 0.25 mg Q4HPRN PRN IV 01/31/25 21:45 Amiodarone HCl 200 mg Q12HR PO 02/01/25 10:00 02/01/25 22:09 200 MG Atorvastatin Calcium 20 mg HS PO 02/01/25 22:00 02/01/25 22:09 20 MG Iron Sucrose 110 ml @ 110 mls/hr DAILY@1200 IV 02/01/25 12:00 02/05/25 12:59 02/01/25 14:12 110 MLS/HR Norepinephrine Bitartrate 250 ml @ 3.75 mls/hr Q24H IV 02/01/25 03:15 02/02/25 06:17 3.75 MLS/HR Laboratory Results Laboratory Tests 02/02/25 03:30 Chemistry Test 02/02/25 03:30 Albumin 3.8 g/dL (3.2-4.8) Calcium Level 8.5 mg/dL (8.7-10.4) L Total Protein 5.8 g/dL (5.7-8.2) LFT Test 02/02/25 03:30 Alanine Aminotransferase (ALT) 22 U/L (7-40) Alkaline Phosphatase 42 U/L (46-116) L Aspartate Amino Transferase (AST) 20 U/L (13-40) Total Bilirubin 1.3 mg/dL (0.2-1.0) H Urinalysis Test 01/31/25 09:31 Urine Color Light-red (Yellow) Urine Clarity Ex.turbid (Clear) Urine pH 6.0 (5.0-9.0) Urine Specific [place] 1.015 (1.001-1.035) Urine Protein 1+ (Negative) H Urine Ketones Trace (Negative) Urine Blood 3+ /uL (Negative) H Urine Nitrite Negative (Negative) Urine Bilirubin Negative (Negative) Urine Urobilinogen Normal mg/dL (Negative) Urine Leukocyte Esterase 1+ /uL (Negative) Urine RBC 35612 /hpf (0 - 4) Urine Microscopic WBC 3 /HPF (0-5) Urine Squamous Epithelial Cells None seen /hpf (<5) Urine Bacteria None seen /hpf (None Seen) Urine Glucose Normal mg/dL (Normal) Urine Test Negative (Negative) Labs and/or images reviewed: Labs reviewed by me, Image(s) reviewed by me Assessment/Plan Assessment/Plan Impression: -hemorrhagic shock due to bleeding uterine fibroid -correction of transposition of great vessels -pulmonary hypertension -pulmonary vascular congestion -history of pacemaker implant -atrial fibrillation with previous ablation and current anticoagulation with Eliquis Plan: Events: minimal vaginal bleeding. H/H stable -Wean Levophed: 4mcg/min -cardiology consultation -hold Eliquis -OBGYN consultation: Recommendations reviewed -repeat labs in a.m. Critical care time spent with patient discussing and formulating plan of care: 40 minutes. This does not include time spent performing procedures. This medical document was created using an electronic medical record system with [employer] dictation system. Although this document has been carefully reviewed, there may still be some phonetic and typographical errors. These areas are purely typographical due to imperfections of the software programs, and do not reflect any compromise in the patient's medical care. Plan discussed with: Patient, Other (RN) My Orders Orders - ELMER VELASQUEZ NP Procedure Category Date Status Time *Consult CONS 02/01/[address]Mukeshchandra Gregory 11:13 Hemoglobin & LAB 02/03/25 Verified Hematocrit 04:00 Date of Service: Feb 02, 2025 Billing Provider: ELMER VELASQUEZ NP Common Visit Codes: 29033-[id number] CARE 30-74 MIN ELMER VELASQUEZ NP Feb 02, 2025 09:16
--- NOTE | 2025-02-02 11:33 | DVHPN2 ---
Consult Progress Note Date Seen: Feb 02, 2025 Subjective Review of Systems: CVS:Normal, RESPIRATORY:Normal, NEURO:Normal Objective vital signs Vital Sign Date Time Temp Pulse Resp B/P (MAP) Pulse Ox O2 Delivery O2 Flow Rate FiO2 02/02/25 09:45 86 18 112/61 (78) 98 02/02/25 08:00 Room Air* 0 21 02/02/25 04:15 98.1 98.1 Total Intake and Output 02/01/25 02/01/25 02/02/25 15:00 23:00 07:00 Intake Total 1259.875 ml 344.375 ml 123.125 ml Output Total 1350 ml 450 ml Balance -90.125 ml -105.625 ml 123.125 ml medications Current Medications Medications Dose Ordered Sig/Marli Route Start Time Stop Time Status Last Admin Dose Admin Ondansetron HCl 4 mg Q4HP PRN IV 01/31/25 21:45 02/02/25 01:30 4 MG Acetaminophen/ Hydrocodone Bitart 1 tab Q4HPRN PRN PO 01/31/25 21:45 02/02/25 02:00 1 TAB Hydromorphone HCl 0.25 mg Q4HPRN PRN IV 01/31/25 21:45 Amiodarone HCl 200 mg Q12HR PO 02/01/25 10:00 02/02/25 10:52 200 MG Atorvastatin Calcium 20 mg HS PO 02/01/25 22:00 02/01/25 22:09 20 MG Iron Sucrose 110 ml @ 110 mls/hr DAILY@1200 IV 02/01/25 12:00 02/05/25 12:59 02/01/25 14:12 110 MLS/HR Norepinephrine Bitartrate 250 ml @ 3.75 mls/hr Q24H IV 02/01/25 03:15 02/02/25 06:17 3.75 MLS/HR Examination: GENERAL:Normal, LUNGS:Abnormal (Bilateral crackles), CVS:Normal (NSR), NEURO:Normal laboratory and microbiology Laboratory Tests 02/02/25 03:30 Test 02/02/25 03:30 Range/Units Serum Glucose 106 74-106 mg/dL Problem List/Assessment/Plan Problem List/Assessment/Plan Preprocedural cardiovascular examination Vaginal bleed with hemorrhagic shock History of atrial fibrillation status post cardiac ablations x 2 (06/2021 &11/2021), on Eliquis therapy 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 06/2023) Original pacemaker implantation at 6 y.o. with first generator exchange in 2011 Pulmonary hypertension, moderate degree Hx of recent TIA (10/2024) Hypertension Dyslipidemia Plan/Recommendation (Dr. Clarke) Cardiac risk stratification for outpatient elective surgery. Preliminary transthoracic echocardiogram reveals optimal LVEF. Twelve lead electrocardiogram revealed a sinus rhythm with an associated right bundle branch block. Revised cardiac risk index (Mike criteria): 1 point placing the patient at a 1.1% risk of , [place] or cardiac arrest. Patient has a significant history of congenital heart disease and atrial fibrillation status post cardiac ablations sustaining a sinus rhythm throughout hospital stay and on Eliquis therapy per primary cardiologists (radial arm saw operator Dr. Martinez in [place], Dr. Sharma in [place], and oil and gas specialist Dr. Payne at [facility]). There is no history of coronary artery disease with patient pending a right and left cardiac catheterization in 2025. Consider bridging from Eliquis to therapeutic Lovenox at least 48 hrs prior to surgical intervention and resume DOAC therapy within 24 hours if low postprocedural bleeding risk. Kindly call if in need of further recommendations. Signing off at this time. Thank you for allowing us to participate in this patient's care. Please call if you have any questions or concerns. This medical document was created using an electronic medical record system with voice recognition software and computerized dictation system. Although this document has been carefully reviewed, there might still be some phonetic and typographical errors. Occasional wrong-word or ``sound-alike substitutions may have occurred due to the inherent limitations of voice recognition software. These areas are purely typographical due to imperfections of the software programs and do not reflect any compromise in the patient's medical care. Please read the chart carefully and recognize, using context, where these substitutions have occurred. Plan discussed with: Patient, Spouse, Other CC Plasma Assessment Blood Product Administration S: 1150 Date of Service: Feb 02, 2025 Billing Provider: LONNIE VELÁZQUEZ Cardiology Common Codes: [id number] HOSP CARE(LONNIE Maurer Feb 02, 2025 11:33
[2025-02-02] MEDS: NOREPINEPHRINE 8 MG/250ML KIT 250 ML IV SCH (13:13)
--- NOTE | 2025-02-02 13:30 | ECG ---
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
[2025-02-02] MEDS: ACETAMINOPHEN 325 MG TAB PO PRN (16:17)
--- NOTE | 2025-02-02 16:48 | DVHPN2 ---
Consult Progress Note Date Seen: Feb 02, 2025 Subjective Review of Systems: CVS:Normal, RESPIRATORY:Normal, NEURO:Normal Other Systems: Patient was seen and evaluated in follow up in the ICU. Patient continues to have vaginal bleeding however it is slowly decreasing. HGB 9.3, HCT 27.1, CL 109. Objective vital signs Vital Sign Date Time Temp Pulse Resp B/P (MAP) Pulse Ox O2 Delivery O2 Flow Rate FiO2 02/02/25 13:13 109/53 02/02/25 12:30 82 21 92 02/02/25 12:00 99.8 99.8 02/02/25 12:00 Room Air* 0 21 Total Intake and Output 02/01/25 02/01/25 02/02/25 15:00 23:00 07:00 Intake Total 1259.875 ml 344.375 ml 123.125 ml Output Total 1350 ml 450 ml Balance -90.125 ml -105.625 ml 123.125 ml medications Current Medications Medications Dose Ordered Sig/Marli Route Start Time Stop Time Status Last Admin Dose Admin Ondansetron HCl 4 mg Q4HP PRN IV 01/31/25 21:45 02/02/25 01:30 4 MG Acetaminophen/ Hydrocodone Bitart 1 tab Q4HPRN PRN PO 01/31/25 21:45 02/02/25 02:00 1 TAB Hydromorphone HCl 0.25 mg Q4HPRN PRN IV 01/31/25 21:45 Amiodarone HCl 200 mg Q12HR PO 02/01/25 10:00 02/02/25 10:52 200 MG Atorvastatin Calcium 20 mg HS PO 02/01/25 22:00 02/01/25 22:09 20 MG Iron Sucrose 110 ml @ 110 mls/hr DAILY@1200 IV 02/01/25 12:00 02/05/25 12:59 02/02/25 13:12 110 MLS/HR Norepinephrine Bitartrate 250 ml @ 1.875 mls/ hr Q24H IV 02/02/25 11:45 02/02/25 13:13 5.625 MLS/HR Examination: GENERAL:Normal, HEENT:Normal, NECK:Normal, LUNGS:Abnormal (Bilateral crackles), CVS:Normal (NSR), ABDOMEN:Normal, MSK:Normal, SKIN:Normal, NEURO:Normal laboratory and microbiology Laboratory Tests 02/02/25 03:30 Test 02/02/25 03:30 Range/Units Serum Glucose 106 74-106 mg/dL Problem List/Assessment/Plan Problem List/Assessment/Plan Problem List: Preprocedural cardiovascular examination. Vaginal bleed with hemorrhagic shock. History of atrial fibrillation status post cardiac ablations x 2 (06/2021 &11/2021), on Eliquis therapy. 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 Presence of right-sided dual-chamber pacemaker with generator exchange at [facility] ([facility] 06/2023). Original pacemaker implantation at 6 y.o. with first generator exchange in 2011. Pulmonary hypertension, moderate degree. Hx of recent TIA (10/2024). Hypertension. Dyslipidemia. Plan/Recommendation Continued all current supportive medical care. Patient has been seen by Mira Castano NP on my behalf, her and I discussed the plan with the patient. Cardiac risk stratification for outpatient elective surgery. Preliminary transthoracic echocardiogram reveals optimal LVEF. Twelve lead electrocardiogram revealed a sinus rhythm with an associated right bundle branch block. Revised cardiac risk index (Mike criteria): 1 point placing the patient at a 1.1% risk of , ID or cardiac arrest. 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 Martinez in [place], Dr. Sharma in [place], and overlock elastic attacher Dr. Payne at [facility]). There is no history of coronary artery disease with patient pending a right and left cardiac catheterization in 2025. Consider bridging from Eliquis to therapeutic Lovenox at least 48 hrs prior to surgical intervention and resume DOAC therapy within 24 hours if low postprocedural bleeding risk. Additional plan as per the hospital course. Plan discussed with: Patient CC Plasma Assessment Blood Product Administration S: [id number] Date of Service: Feb 02, 2025 Billing Provider: MELISA DIXON MD Cardiology Common Codes: [id number](High MELISA DIXON MD Feb 02, 2025 13:26
[2025-02-03] VITALS (94 sets, daily range): BP systolic 85–122; BP diastolic 33–75; PULSE 70–90; RESP 12–31; TEMP 97.5–99.4; O2SAT 89–99
[2025-02-03 04:33] LABS: Hematocrit 26.4 % (36.0-46.0); Hemoglobin 8.9 g/dL (12.2-16.2)
[2025-02-03 04:54] LABS: Alanine Aminotransferase 34 U/L (7-40); Albumin 3.7 g/dL (3.2-4.8); Alkaline Phosphatase 62 U/L (46-116); Anion Gap 12 (5-15); BUN/Creatinine Ratio 12.9 (10.0-20.0); Bilirubin, Total 0.8 mg/dL (0.2-1.0); Calcium 8.9 mg/dL (8.7-10.4); Carbon Dioxide 23 mmol/L (20-31); Chloride 106 mmol/L (98-107); Potassium 3.6 mmol/L (3.5-5.1); Sodium 141 mmol/L (136-145)
[2025-02-03 04:55] LABS: Blood Urea Nitrogen 9 mg/dL (9-23); Glucose 112 mg/dL (74-106); Total Protein 5.4 g/dL (5.7-8.2)
--- NOTE | 2025-02-03 08:50 | DVH ---
CLINICAL INFORMATION: Congestive heart failure. TECHNIQUE: Single AP portable chest radiograph was obtained. COMPARISON: XY CHEST PORTABLE on DOS: 02/01/25, XY CHEST XRAY 1 VIEW on DOS: 01/31/25, XY CHEST XRAY 1 VIEW on DOS: 11/03/24 FINDINGS: Similar-appearing cardiomegaly, prominence of the pulmonary vasculature, and interstitial opacities consistent with interstitial pulmonary edema in the appropriate clinical setting. Findings are slightly increased compared to the prior exam. IMPRESSION: Findings consistent with interstitial pulmonary edema, slightly increased compared to the prior exam..
[2025-02-03] MEDS: FUROSEMIDE 20 MG/2 ML VIAL IV ONE (09:00)
--- NOTE | 2025-02-03 09:53 | DVHPN2 ---
Subjective Patient denies any symptoms at this time. Reviewed: Care Plan, H&P, Labs, Medications, Previous Orders Changes from previous H/P or p: No Changes General: Per HPI Eyes: No Pain, No Vision change, No Conjunctivae inflammation, No Eyelid inflammation, No Other, No Redness ENT: No Ear pain, No Ear discharge, No Nose pain, No Nose discharge, No Nose congestion, No Mouth pain, No Mouth swelling, No Throat pain, No Throat swelling, No Other Cardiovascular: No Chest Pain, No Palpitations, No Orthopnea, No Paroxysmal Noc. Dyspnea, No Edema, No Lt Headedness, No Other Respiratory: No Cough, No Dry, No Shortness of breath, No SOB with excertion, No Wheezing, No Hemoptysis, No Pleuritic Pain, No Sputum, No Other Gastrointestinal: No Nausea, No Vomiting; Abdominal Pain; No Diarrhea, No Constipation, No Melena, No Hematochezia, No Other Genitourinary: No Dysuria, No Frequency, No Incontinence, No Hematuria, No Retention, No Other Musculoskeletal: No other, No neck pain, No shoulder pain, No arm pain, No back pain, No hand pain, No leg pain, No foot pain Skin: No Rash, No Lesions, No Jaundice, No Bruising, No Other Objective Vitals Vital Signs Date Time Temp Pulse Resp B/P (MAP) Pulse Ox O2 Delivery O2 Flow Rate FiO2 02/03/25 08:00 70 14 90 Nasal Cannula* 2 28 02/03/25 06:32 91/50 02/03/25 04:00 98.1 98.1 Intake/Output Intake and Output 02/03/25 07:00 Intake Total 1700.0 ml Output Total 700 ml Balance 1000.0 ml Intake Oral 1560 ml IV Total 140.0 ml Output Urine Total 700 ml General Appearance: Alert, Oriented X3, Cooperative, No acute distress HEENT: Atraumatic, PERRLA Lungs: Clear to auscultation, Normal air movement Cardiovascular: Normal S1, Normal S2 Abdomen: Normal bowel sounds, Soft, No tenderness, No hepatospenomegaly Musculoskeletal: Normal sensory function, Normal motor function Neuro: Normal gait, Normal speech Skin: Dry, Intact Psych/Mental Status: Mental status NL, Mood NL Medications Current Medications Medications Dose Ordered Sig/Marli Route Start Time Stop Time Status Last Admin Dose Admin Ondansetron HCl 4 mg Q4HP PRN IV 01/31/25 21:45 02/03/25 09:40 4 MG Acetaminophen/ Hydrocodone Bitart 1 tab Q4HPRN PRN PO 01/31/25 21:45 02/02/25 02:00 1 TAB Hydromorphone HCl 0.25 mg Q4HPRN PRN IV 01/31/25 21:45 Amiodarone HCl 200 mg Q12HR PO 02/01/25 10:00 02/02/25 22:10 200 MG Atorvastatin Calcium 20 mg HS PO 02/01/25 22:00 02/02/25 22:10 20 MG Iron Sucrose 110 ml @ 110 mls/hr DAILY@1200 IV 02/01/25 12:00 02/05/25 12:59 02/02/25 13:12 110 MLS/HR Norepinephrine Bitartrate 250 ml @ 1.875 mls/ hr Q24H IV 02/02/25 11:45 02/03/25 06:32 1.875 MLS/HR Acetaminophen 650 mg Q4HP PRN PO 02/02/25 14:00 02/03/25 05:30 650 MG Magnesium Oxide 400 mg DAILY PO 02/03/25 10:00 Laboratory Results Laboratory Tests 02/02/25 03:30 02/03/25 03:53 Chemistry Test 02/03/25 03:53 Albumin 3.7 g/dL (3.2-4.8) Calcium Level 8.9 mg/dL (8.7-10.4) Magnesium Level 1.8 mg/dL (1.6-2.6) Total Protein 5.4 g/dL (5.7-8.2) L LFT Test 02/03/25 03:53 Alanine Aminotransferase (ALT) 34 U/L (7-40) Alkaline Phosphatase 62 U/L (46-116) Aspartate Amino Transferase (AST) 22 U/L (13-40) Total Bilirubin 0.8 mg/dL (0.2-1.0) Urinalysis Test 01/31/25 09:31 Urine Color Light-red (Yellow) Urine Clarity Ex.turbid (Clear) Urine pH 6.0 (5.0-9.0) Urine Specific Panther 1.015 (1.001-1.035) Urine Protein 1+ (Negative) H Urine Ketones Trace (Negative) Urine Blood 3+ /uL (Negative) H Urine Nitrite Negative (Negative) Urine Bilirubin Negative (Negative) Urine Urobilinogen Normal mg/dL (Negative) Urine Leukocyte Esterase 1+ /uL (Negative) Urine RBC 64329 /hpf (0 - 4) Urine Microscopic WBC 3 /HPF (0-5) Urine Squamous Epithelial Cells None seen /hpf (<5) Urine Bacteria None seen /hpf (None Seen) Urine Glucose Normal mg/dL (Normal) Urine Test Negative (Negative) Labs and/or images reviewed: Labs reviewed by me, Image(s) reviewed by me Assessment/Plan Assessment/Plan Impression: -hemorrhagic shock due to bleeding uterine fibroid -correction of transposition of great vessels -pulmonary hypertension -pulmonary vascular congestion -history of pacemaker implant -atrial fibrillation with previous ablation and current anticoagulation with Eliquis Plan: Events continues to report having minimal vaginal bleeding. H&H stable. Continues to be on norepinephrine. Repeat chest x-ray with pulmonary vascular congestion. -IV diuresis -K and Mag replete -bowel regimen -Wean Levophed: 4mcg/min -cardiology consultation: Recommendations reviewed -hold Eliquis -OBGYN consultation: Recommendations reviewed -P H&H in a.m. Critical care time spent with patient discussing and formulating plan of care: 40 minutes. This does not include time spent performing procedures. This medical document was created using an electronic medical record system with [employer] dictation system. Although this document has been carefully reviewed, there may still be some phonetic and typographical errors. These areas are purely typographical due to imperfections of the software programs, and do not reflect any compromise in the patient's medical care. Plan discussed with: Patient, Other (RN) My Orders Orders - ELMER VELASQUEZ NP Procedure Category Date Status Time Norepinephrine 8 PHA 02/02/25 In Process Mg/250ml Kit 11:45 Acetaminophen Tablet PHA 02/02/25 In Process (Tylenol Tablet) 14:00 Chest Xray 1 View XY 02/03/25 Resulted 08:16 Magnesium Oxide PHA 02/03/25 In Process Tablet (Mag-Ox Tablet) 10:00 Hemoglobin & LAB 02/03/25 Logged Hematocrit 09:00 Date of Service: Feb 03, 2025 Billing Provider: ELMER VELASQUEZ NP Common Visit Codes: [id number] CARE 30-74 MIN ELMER VELASQUEZ NP Feb 03, 2025 09:53
[2025-02-03 10:28] LABS: Hematocrit 27.7 % (36.0-46.0); Hemoglobin 9.4 g/dL (12.2-16.2)
[2025-02-03] MEDS: POTASSIUM EFFERVESENT TAB 25 MEQ PO ONE (10:35)
[2025-02-03] MEDS: POLYETHYLENE GLYCOL 17 GM PWDR PO ONE (10:36)
[2025-02-03] MEDS: MAGNESIUM OXIDE 400 MG TAB PO SCH (10:37)
--- NOTE | 2025-02-03 10:37 | DVHSR ---
APPROVED REPORT EXAM: Two-dimensional and M-mode echocardiogram with Doppler and color Doppler. Blood Pressure: 94/25 mmHg INDICATION history of chf, prior 11/05/24 Surgery/Intervention Pacemaker: RISK FACTORS Height: , Weight: DIMENSIONS LVDd 4.4 (3.8-5.7cm) LA (2D) (1.9-4.0cm) Aortic Root 2.3 (2.0-3.7cm) LVDs 2.6 (2.5-4.0cm) LA (MM) (1.9-4.0cm) Aortic Cusp Exc 1.6 (1.5-2.0cm) EF (%) 65.0 (55-70%) Rt. Atrium 4.1 (1.9-4.0cm) Asc. Aorta cm IVSd 0.7 (0.7-1.1cm) RV (D) 5.2 (1.8-2.4cm) PWd 0.8 (0.7-1.1cm) Mitral Valve Mitral Mitral Stenosis E/A ratio 0.0 2D MVA cm2 Aortic Valve Aortic Valve Aortic Stenosis V1 1.07m/s AO Mean GR. 3mmHg V2 1.12m/s AO Peak GR. 5mmHg LVOT Diameter 2.1 (1.8-2.4cm) Doppler JOHN 3.31cm2 Pulmonic Valve V2 1.24m/s Tricuspid Valve TR Velocity 3.20m/s RVSP 46mmHg Other Information Quality : Technically Limited Rhythm : Technically limited study due to body habitus.patient position. Conclusion REMARKABLY DILATED RV AND RA RV IS MODERATELY HYPOKINETIC RVSP IS 46 MM OF HG AND IS MODERATELY HIGH STUDY CONFIRMS RV FAILURE WITH PULMONARY HYPERTENSION LV EF IS 65% POSTERIOR MITRAL LEAFLET IS CALCIFIED MILD PERICARDIAL EFFUSION
--- NOTE | 2025-02-03 22:17 | DVHPN2 ---
Progress Note - Dictate Date Seen: Feb 03, 2025 Medical Necessity Reason Pt with a Central, PICC or Fol: Yes Subjective Patient was seen and evaluated in follow up in the ICU. Patient has no complaints. Echocardiogram shows LV EF of 65%. HGB 9.4, HCT 27.7. Chest x-ray shows findings consistent with interstitial pulmonary edema, slightly increased compared to the prior exam. vital signs Vital Sign Date Time Temp Pulse Resp B/P (MAP) Pulse Ox O2 Delivery O2 Flow Rate FiO2 02/03/25 12:45 70 15 95/59 (71) 96 02/03/25 12:00 Room Air* 0 21 02/03/25 08:00 98.0 98.0 Total Intake and Output 02/02/25 02/02/25 02/03/25 15:00 23:00 07:00 Intake Total 1700.0 ml Output Total 250 ml 100 ml 350 ml Balance 1450.0 ml -100 ml -350 ml medications Current Medications Medications Dose Ordered Sig/Marli Route Start Time Stop Time Status Last Admin Dose Admin Ondansetron HCl 4 mg Q4HP PRN IV 01/31/25 21:45 02/03/25 09:40 4 MG Acetaminophen/ Hydrocodone Bitart 1 tab Q4HPRN PRN PO 01/31/25 21:45 02/02/25 02:00 1 TAB Hydromorphone HCl 0.25 mg Q4HPRN PRN IV 01/31/25 21:45 Amiodarone HCl 200 mg Q12HR PO 02/01/25 10:00 02/03/25 10:36 200 MG Atorvastatin Calcium 20 mg HS PO 02/01/25 22:00 02/02/25 22:10 20 MG Iron Sucrose 110 ml @ 110 mls/hr DAILY@1200 IV 02/01/25 12:00 02/05/25 12:59 02/03/25 12:45 110 MLS/HR Norepinephrine Bitartrate 250 ml @ 1.875 mls/ hr Q24H IV 02/02/25 11:45 02/03/25 06:32 1.875 MLS/HR Acetaminophen 650 mg Q4HP PRN PO 02/02/25 14:00 02/03/25 05:30 650 MG Magnesium Oxide 400 mg DAILY PO 02/03/25 10:00 02/03/25 10:37 400 MG objective GENERAL: Alert and oriented x 3. No acute distress. Obesity. EYES: PERRL, EOMI. Anicteric. HENT: Moist mucous membranes. LUNGS: Clear to auscultation bilaterally. CARDIOVASCULAR: Regular rate and rhythm. ABDOMEN: Soft, non-tender and non-distended. EXTREMITIES: No edema. NEUROLOGIC: No focal neurological deficits. SKIN: Warm, dry. laboratory and microbiology Laboratory Tests 02/03/25 09:58 02/03/25 03:53 02/02/25 03:30 Test 02/03/25 03:53 Range/Units Serum Glucose 112 H 74-106 mg/dL Problem List Preprocedural cardiovascular examination. Vaginal bleed with hemorrhagic shock. History of atrial fibrillation status post cardiac ablations x 2 (06/2021 &11/2021), on Eliquis therapy. 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 Presence of right-sided dual-chamber pacemaker with generator exchange at [facility] ([facility] 06/2023). Original pacemaker implantation at 6 y.o. with first generator exchange in 2011. Pulmonary hypertension, moderate degree. Hx of recent TIA (10/2024). Hypertension. Dyslipidemia. Assessment/Plan Continued all current supportive medical care. Dilaudid and [place] for pain management. Amiodarone. Lipitor. Vasopressors for hemodynamic support. Additional plan as per the hospital course. Critical care time of 45 minutes provided to include time spent evaluation of patient at bedside, when appropriate patient/family education for diagnosis, treatment plan, review of pertinent medical information and discussion of care with specialty providers and PCP. Dietary Evaluation Review Comments: Cardiac diet for heart disease Encourage iron-rich foods Expected Outcomes/Goals: Improved nutrition related lab values Plan discussed with: Patient CC Plasma Assessment Blood Product Administration S: 11:50 MELISA DIXON MD Feb 03, 2025 13:21
[2025-02-04] VITALS (77 sets, daily range): BP systolic 87–120; BP diastolic 34–68; PULSE 69–94; RESP 11–30; TEMP 97.8–99.3; O2SAT 88–98
[2025-02-04 04:23] LABS: Hematocrit 26.0 % (36.0-46.0); Hemoglobin 8.6 g/dL (12.2-16.2); Mean Corpuscular Hemoglobin 29.9 pg (28.0-32.0); Mean Corpuscular Volume 90.6 fL (80.0-100.0); Nucleated Red Blood Cells % 0.3 %
[2025-02-04 04:38] LABS: Alanine Aminotransferase 31 U/L (7-40); Alkaline Phosphatase 60 U/L (46-116); Anion Gap 9 (5-15); BUN/Creatinine Ratio 9.2 (10.0-20.0); Calcium 8.8 mg/dL (8.7-10.4); Carbon Dioxide 25 mmol/L (20-31); Chloride 106 mmol/L (98-107); Glucose 92 mg/dL (74-106); Potassium 4.0 mmol/L (3.5-5.1); Sodium 140 mmol/L (136-145)
[2025-02-04 04:39] LABS: Albumin 3.4 g/dL (3.2-4.8); Bilirubin, Total 0.6 mg/dL (0.2-1.0)
[2025-02-04 04:49] LABS: Blood Urea Nitrogen 7 mg/dL (9-23); Total Protein 5.2 g/dL (5.7-8.2)
--- NOTE | 2025-02-04 09:43 | DVHPN2 ---
Subjective Patient denies any symptoms at this time. Reviewed: Care Plan, H&P, Labs, Medications, Previous Orders Changes from previous H/P or p: No Changes General: Per HPI Eyes: No Pain, No Vision change, No Conjunctivae inflammation, No Eyelid inflammation, No Other, No Redness ENT: No Ear pain, No Ear discharge, No Nose pain, No Nose discharge, No Nose congestion, No Mouth pain, No Mouth swelling, No Throat pain, No Throat swelling, No Other Cardiovascular: No Chest Pain, No Palpitations, No Orthopnea, No Paroxysmal Noc. Dyspnea, No Edema, No Lt Headedness, No Other Respiratory: No Cough, No Dry, No Shortness of breath, No SOB with excertion, No Wheezing, No Hemoptysis, No Pleuritic Pain, No Sputum, No Other Gastrointestinal: No Nausea, No Vomiting; Abdominal Pain; No Diarrhea, No Constipation, No Melena, No Hematochezia, No Other Genitourinary: No Dysuria, No Frequency, No Incontinence, No Hematuria, No Retention, No Other Musculoskeletal: No other, No neck pain, No shoulder pain, No arm pain, No back pain, No hand pain, No leg pain, No foot pain Skin: No Rash, No Lesions, No Jaundice, No Bruising, No Other Objective Vitals Vital Signs Date Time Temp Pulse Resp B/P (MAP) Pulse Ox O2 Delivery O2 Flow Rate FiO2 02/04/25 09:30 70 24 101/44 (63) 95 02/04/25 08:30 98.2 98.2 02/04/25 08:00 Room Air* 0 21 Intake/Output Intake and Output 02/04/25 07:00 Intake Total 2551 ml Output Total 1000 ml Balance 1551 ml Intake Oral 2400 ml IV Total 110 ml Other 41 ml Output Urine Total 1000 ml # Bowel Movements 2 General Appearance: Alert, Oriented X3, Cooperative, No acute distress HEENT: Atraumatic, PERRLA Lungs: Clear to auscultation, Normal air movement Cardiovascular: Normal S1, Normal S2 Abdomen: Normal bowel sounds, Soft, No tenderness, No hepatospenomegaly Musculoskeletal: Normal sensory function, Normal motor function Neuro: Normal gait, Normal speech Skin: Dry, Intact Psych/Mental Status: Mental status NL, Mood NL Medications Current Medications Medications Dose Ordered Sig/Marli Route Start Time Stop Time Status Last Admin Dose Admin Ondansetron HCl 4 mg Q4HP PRN IV 01/31/25 21:45 02/03/25 09:40 4 MG Acetaminophen/ Hydrocodone Bitart 1 tab Q4HPRN PRN PO 01/31/25 21:45 02/02/25 02:00 1 TAB Hydromorphone HCl 0.25 mg Q4HPRN PRN IV 01/31/25 21:45 Amiodarone HCl 200 mg Q12HR PO 02/01/25 10:00 02/03/25 22:04 200 MG Atorvastatin Calcium 20 mg HS PO 02/01/25 22:00 02/03/25 22:04 20 MG Iron Sucrose 110 ml @ 110 mls/hr DAILY@1200 IV 02/01/25 12:00 02/05/25 12:59 02/03/25 12:45 110 MLS/HR Norepinephrine Bitartrate 250 ml @ 1.875 mls/ hr Q24H IV 02/02/25 11:45 02/03/25 06:32 1.875 MLS/HR Acetaminophen 650 mg Q4HP PRN PO 02/02/25 14:00 02/03/25 22:04 650 MG Magnesium Oxide 400 mg DAILY PO 02/03/25 10:00 02/03/25 10:37 400 MG Laboratory Results Laboratory Tests 02/04/25 03:59 Chemistry Test 02/04/25 03:59 Albumin 3.4 g/dL (3.2-4.8) Calcium Level 8.8 mg/dL (8.7-10.4) Total Protein 5.2 g/dL (5.7-8.2) L LFT Test 02/04/25 03:59 Alanine Aminotransferase (ALT) 31 U/L (7-40) Alkaline Phosphatase 60 U/L (46-116) Aspartate Amino Transferase (AST) 17 U/L (13-40) Total Bilirubin 0.6 mg/dL (0.2-1.0) Urinalysis Test 01/31/25 09:31 Urine Color Light-red (Yellow) Urine Clarity Ex.turbid (Clear) Urine pH 6.0 (5.0-9.0) Urine Specific Lorenzo 1.015 (1.001-1.035) Urine Protein 1+ (Negative) H Urine Ketones Trace (Negative) Urine Blood 3+ /uL (Negative) H Urine Nitrite Negative (Negative) Urine Bilirubin Negative (Negative) Urine Urobilinogen Normal mg/dL (Negative) Urine Leukocyte Esterase 1+ /uL (Negative) Urine RBC 23909 /hpf (0 - 4) Urine Microscopic WBC 3 /HPF (0-5) Urine Squamous Epithelial Cells None seen /hpf (<5) Urine Bacteria None seen /hpf (None Seen) Urine Glucose Normal mg/dL (Normal) Urine Test Negative (Negative) Labs and/or images reviewed: Labs reviewed by me, Image(s) reviewed by me Assessment/Plan Assessment/Plan Impression: -hemorrhagic shock due to bleeding uterine fibroid -correction of transposition of great vessels -pulmonary hypertension -pulmonary vascular congestion -history of pacemaker implant -atrial fibrillation with previous ablation and current anticoagulation with Eliquis Plan: Events: No active bleeding overnight. Patient weaned off of vasopressor therapy today. Patient weaned off of oxygen after diuresis. -start subQ Lovenox. The patient has no signs of bleeding, we will reassess for discharge. -cardiology consultation: Recommendations reviewed. Patient education for Lovenox injections. -hold Eliquis -OBGYN consultation: Recommendations reviewed -H&H stable Total time spent with patient discussing and formulating plan of care: 35 minutes. This medical document was created using an electronic medical record system with [employer] dictation system. Although this document has been carefully reviewed, there may still be some phonetic and typographical errors. These areas are purely typographical due to imperfections of the software programs, and do not reflect any compromise in the patient's medical care. Plan discussed with: Patient, Other (RN) My Orders Orders - ELMER VELASQUEZ NP Procedure Category Date Status Time Transfer Orders XFER 02/04/25 Transmitted 09:38 Date of Service: Feb 04, 2025 Billing Provider: ELMER VELASQUEZ NP Common Visit Codes: [id number] INP/OBS CARE(HIGH) ELMER VELASQUEZ NP Feb 04, 2025 09:43
[2025-02-04] MEDS: ENOXAPARIN SOD 80 MG/0.8ML SYRINGE SC ONE (10:48)
[2025-02-04] MEDS ORDERED: ENOX80IN8 SC ×2 (15:23→15:38)
--- NOTE | 2025-02-04 15:50 | DVHDS2 ---
Discharge Summary Date of Admission Jan 31, 2025 at 21:43 Date of Discharge: Feb 04, 2025 Admitting Diagnosis Blood loss secondary to uterine bleed Labs/Diagnostic Data: Laboratory Results Test 02/04/25 03:59 02/03/25 03:53 01/31/25 16:15 01/31/25 09:31 White Blood Count 7.6 10^3/uL (4.4-10.8) Red Blood Count 2.87 10^6/uL (4.0-5.20) Hemoglobin 8.6 g/dL (12.2-16.2) Hematocrit 26.0 % (36.0-46.0) Mean Corpuscular Volume 90.6 fL (80.0-100.0) Mean Corpuscular Hemoglobin 29.9 pg (28.0-32.0) Mean Corpuscular Hemoglobin Concent 33.0 g/dL (32.0-36.0) Red Cell Distribution Width 14.6 % (11.8-14.3) Platelet Count 98 10^3/uL (140-450) Mean Platelet Volume 11.5 fL (6.9-10.8) Neutrophils (%) (Auto) 66.4 % (37.0-80.0) Lymphocytes (%) (Auto) 21.0 % (10.0-50.0) Monocytes (%) (Auto) 11.9 % (0.0-12.0) Eosinophils (%) (Auto) 0.5 % (0.0-7.0) Basophils (%) (Auto) 0.2 % (0.0-2.0) Neutrophils # (Auto) 5.0 10 ^3/uL (1.6-8.6) Lymphocytes # (Auto) 1.6 10 ^3/uL (0.4-5.4) Monocytes # (Auto) 0.9 10 ^3/uL (0-1.3) Eosinophils # (Auto) 0 10 ^3/uL (0-0.8) Basophils # (Auto) 0 10 ^3/uL (0-0.2) Nucleated Red Blood Cells 0.3 % Sodium Level 140 mmol/L (136-145) Potassium Level 4.0 mmol/L (3.5-5.1) Chloride Level 106 mmol/L (98-107) Carbon Dioxide Level 25 mmol/L (20-31) Anion Gap 9 (5-15) Blood Urea Nitrogen 7 mg/dL (9-23) Creatinine 0.76 mg/dL (0.550-1.02) Glomerular Filtration Rate Calc 100 mL/min (>90) BUN/Creatinine Ratio 9.2 (10.0-20.0) Serum Glucose 92 mg/dL (74-106) Calcium Level 8.8 mg/dL (8.7-10.4) Total Bilirubin 0.6 mg/dL (0.2-1.0) Aspartate Amino Transferase (AST) 17 U/L (13-40) Alanine Aminotransferase (ALT) 31 U/L (7-40) Alkaline Phosphatase 60 U/L (46-116) Total Protein 5.2 g/dL (5.7-8.2) Albumin 3.4 g/dL (3.2-4.8) Magnesium Level 1.8 mg/dL (1.6-2.6) Prothrombin Time 12.0 sec (9.3-11.8) Prothrombin Time INR 1.15 (0.9-1.15) Activated Partial Thromboplast Time 24.7 SEC (24.5-34.5) Direct Bilirubin 0.2 mg/dL (<0.3) B-Type Natriuretic Peptide 127.08 pg/mL (0-100) Urine Color Light-red (Yellow) Urine Clarity Ex.turbid (Clear) Urine pH 6.0 (5.0-9.0) Urine Specific [place] 1.015 (1.001-1.035) Urine Protein 1+ (Negative) Urine Ketones Trace (Negative) Urine Blood 3+ /uL (Negative) Urine Nitrite Negative (Negative) Urine Bilirubin Negative (Negative) Urine Urobilinogen Normal mg/dL (Negative) Urine Leukocyte Esterase 1+ /uL (Negative) Urine RBC 60951 /hpf (0 - 4) Urine Microscopic WBC 3 /HPF (0-5) Urine Squamous Epithelial Cells None seen /hpf (<5) Urine Bacteria None seen /hpf (None Seen) Urine Glucose Normal mg/dL (Normal) Urine Test Negative (Negative) Other Laboratory Tests 02/04/25 03:59 Brief Hx & Hospital Course: History of Present Illness 44-year-old female with a past medical history of 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 Patient reports having heavy menstrual bleeding for 1 month 1 week, with passage of heavy clots, uses 6 big pads/day and today reports she felt more dizzy than usual and could not get out of bed. Bleeding is also associated with nausea, shortness of breaths, and lower abdominal cramps 10/10 intensity, nonradiating with no aggravating or relieving factors. She reports she has been visiting her OBGYN doctor who has scheduled her for surgical ablation of her uterine fibroids (on 02/09/2025) but she is pending cardiac clearnance. Patient denies any chest pain, vomiting, urinary symptoms. Course of hospitalization: Patient was given2 units PRBCs, TXA infusion, as well as Premarin injections. Patient is vaginal bleeding has resolved. Cardiology consultation was obtained to perform preop clearance for hysterectomy. OBGYN consultation was obtained, for which the patient will be defer to outpatient OBGYN for hysterectomy. Patient is blood pressure has stabilized with vasopressor therapy weaned off. Patient has received IV diuresis for noted pulmonary vascular congestion on chest x-ray yesterday. Given history of atrial fibrillation and previous stroke, patient will be held from Eliquis therapy as an outpatient. Recommendations by Cardiology RT start Lovenox injections1 milligram/kilogram twice a day, and to be hours prior to surgery. This was discussed with the patient. Patient will also have antihypertensives held at this time, but have continuation of amiodarone and hydrochlorothiazide for her noted AFib and pulmonary vascular congestion. She is instructed to follow up with the gauge operator in OBGYN at next available appointment. With any return of excessive vaginal bleeding she is instructed to come back to the hospital. Patient was agreeable with discharge plan. All questions answered. Physical examination General: Alert and Oriented x3. No acute distress. Well-nourished. Eyes: EOMI. Anicteric. HENT: Moist mucous membranes. Lungs: Clear to auscultation bilaterally. No accessory muscle use. Cardiovascular: Regular rate and rhythm. No murmur. No JVD. Abdomen: Soft, non-tender and non-distended. No palpable masses. Extremities: No edema. Non-tender. Skin: No rashes or lesions. Warm. Neurologic: No focal neurological deficits. CN II-XII grossly intact, but not individually tested. Psychiatric: Cooperative. Appropriate mood and affect. Total time spent with patient discussing and formulating plan of care: 35 minutes. This medical document was created using an electronic medical record system with [employer] dictation system. Although this document has been carefully reviewed, there may still be some phonetic and typographical errors. These areas are purely typographical due to imperfections of the software programs, and do not reflect any compromise in the patient's medical care. Consults/Reason for consult Cardiology: Preop clearance OBGYN: Uterine bleeding Condition at Discharge: Guarded Final Diagnosis/Problems List Hemorrhagic shock -hemorrhagic shock due to bleeding uterine fibroid -correction of transposition of great vessels -pulmonary hypertension -pulmonary vascular congestion -history of pacemaker implant -atrial fibrillation with previous ablation and current anticoagulation with Eliquis Discharge Disposition: Home Discharge Instruct/Medications Diet: Cardiac 2g Na,low cholest Activity: No Restrictions, As Tolerated Follow Up/Referral: Follow up with OBGYN at next available appointment. Patient reports hysterectomy 02/09/25 Medications: Hold Eliquis Enoxaparin 80 mg subQ b.i.d., stop two days prior to hysterectomy Continue all home medications as outlined in medication reconciliation Scheduled Acetaminophen (Tylenol 8 Hour Arthritis), 650 MG PO TID Acetaminophen (Acetaminophen), 500 MG PO Q4HPRN Amiodarone Hcl (Amiodarone Hcl), 200 MG PO Q12HR, (Reported) Apixaban Base (Eliquis), 5 MG PO BID, (Reported) Atenolol (Atenolol), 25 MG PO DAILY Benzonatate (Benzonatate), 1 CAP PO TID, (Reported) Ciprofloxacin Hcl (Cipro), 1 TAB PO BID Clindamycin Hcl (Clindamycin Hcl), 1 CAP PO TID Enoxaparin Sodium (Enoxaparin Sodium), 80 MG SC BID Enoxaparin Sodium (Enoxaparin Sodium), 80 MG SC BID Hctz (Hydrochlorothiazide), 25 MG PO BID Lisinopril (Lisinopril), 10 MG PO DAILY, (Reported) Medroxyprogesterone Acetate (Medroxyprogesterone Aceta), 10 MG PO DAILY Metoprolol Succinate (Metoprolol Succinate Er), 25 MG PO DAILY, (Reported) Nitrofurantoin Monohydrate Mac (Macrobid), 100 MG PO BID Potassium Chloride (Potassium Chloride ER), 20 MEQ PO DAILY Spironolactone (Spironolactone), TAB PO DAILY, (Reported) Tobramycin Sulfate (Tobrex), 2 DROP OP QID Miscellaneous Medications Dapagliflozin Propanediol (Farxiga), 10 MG PO, (Reported) Ferric Sulfate (Ferric Sulfate Hydrate), 1 XX, (Reported) 36 Discharge Statement: "Patient was advised to return to the ER or call 911 if any headaches, dizziness, shortness of breath, chest pain, abdominal pain, bleeding, fevers, or worsening of medical condition. Patient was counseled about treatment plan, medications, possible side effects, patientverbalized understanding. All questions were answered to the best of my ability. This discharge took greater then 30 minutes in planning, reviewing documentation, counseling the patient, and discussing with other team members." ASSESSMENT ASSESSMENT Assessment Hemorrhagic shock Date of Service: Feb 04, 2025 Billing Provider: ELMER VELASQUEZ NP Common Visit Codes: 74745-LAN/OBS DISCH DAY >30min ELMER VELASQUEZ NP Feb 04, 2025 15:50
--- NOTE | 2025-02-04 18:16 | DVHPN2 ---
Progress Note - Dictate Date Seen: Feb 04, 2025 Medical Necessity Reason Pt with a Central, PICC or Fol: Yes Subjective Patient was seen and evaluated in follow up in the ICU. No overnight events. Patients VS are stable. Vasopressors were discontinued. He does not voice any complaints. HGB 8.6, HCT 26. Patient is being arranged for discharge. vital signs Vital Sign Date Time Temp Pulse Resp B/P (MAP) Pulse Ox O2 Delivery O2 Flow Rate FiO2 02/04/25 17:00 70 17 92/46 (61) 94 02/04/25 16:15 Room Air* 0 21 02/04/25 15:46 98.4 Total Intake and Output 02/03/25 02/03/25 02/04/25 15:00 23:00 07:00 Intake Total 1310 ml 941 ml 300 ml Output Total 800 ml 100 ml 100 ml Balance 510 ml 841 ml 200 ml medications Current Medications Medications Dose Ordered Sig/Marli Route Start Time Stop Time Status Last Admin Dose Admin Ondansetron HCl 4 mg Q4HP PRN IV 01/31/25 21:45 02/03/25 09:40 4 MG Acetaminophen/ Hydrocodone Bitart 1 tab Q4HPRN PRN PO 01/31/25 21:45 02/04/25 13:54 1 TAB Hydromorphone HCl 0.25 mg Q4HPRN PRN IV 01/31/25 21:45 Amiodarone HCl 200 mg Q12HR PO 02/01/25 10:00 02/04/25 10:41 200 MG Atorvastatin Calcium 20 mg HS PO 02/01/25 22:00 02/03/25 22:04 20 MG Iron Sucrose 110 ml @ 110 mls/hr DAILY@1200 IV 02/01/25 12:00 02/05/25 12:59 02/04/25 12:36 110 MLS/HR Acetaminophen 650 mg Q4HP PRN PO 02/02/25 14:00 02/04/25 12:38 650 MG Magnesium Oxide 400 mg DAILY PO 02/03/25 10:00 02/04/25 10:41 400 MG objective GENERAL: Alert and oriented x 3. No acute distress. Obesity. EYES: PERRL, EOMI. Anicteric. HENT: Moist mucous membranes. LUNGS: Clear to auscultation bilaterally. CARDIOVASCULAR: Regular rate and rhythm. ABDOMEN: Soft, non-tender and non-distended. EXTREMITIES: No edema. NEUROLOGIC: No focal neurological deficits. SKIN: Warm, dry. laboratory and microbiology Laboratory Tests 02/04/25 03:59 Test 02/04/25 03:59 Range/Units Serum Glucose 92 74-106 mg/dL Problem List Preprocedural cardiovascular examination. Vaginal bleed with hemorrhagic shock. History of atrial fibrillation status post cardiac ablations x 2 (06/2021 &11/2021), on Eliquis therapy. Congenital heart disease with transposition of the great vessels status post surgical repair at [facility] at 4 mos old. Presence of right-sided dual-chamber pacemaker with generator exchange at [facility] ([facility] 06/2023). Original pacemaker implantation at 6 y.o. with first generator exchange in 2011. Pulmonary hypertension, moderate degree. Hx of recent TIA (10/2024). Hypertension. Dyslipidemia. Assessment/Plan Continued all current supportive medical care. Dilaudid and [place] for pain management. Amiodarone. Lipitor. Additional plan as per the hospital course. Critical care time of 45 minutes provided to include time spent evaluation of patient at bedside, when appropriate patient/family education for diagnosis, treatment plan, review of pertinent medical information and discussion of care with specialty providers and PCP. Dietary Evaluation Review Comments: Cardiac diet for heart disease Encourage iron-rich foods Expected Outcomes/Goals: Improved nutrition related lab values Plan discussed with: Patient CC Plasma Assessment Blood Product Administration S: 11:50 MELISA DIXON MD Feb 04, 2025 18:16
== END 2025-02-04 18:00 | disposition home or self-care (01) | DRG 532 ==
LOC: ER 15:23 → OVERFLOW 21:43 → ICU WEST 02-02 00:23
PROVIDERS: ADMIT Nurse Practitioner Acute Care; ATTEND Nurse Practitioner Acute Care
PROC: 30233N1 Transfusion of Nonautologous Red Blood Cells into Peripheral Vein, Percutaneous Approach (ICD-10-PCS; principal; 2025-02-01)
PROC: 30233K1 Transfusion of Nonautologous Frozen Plasma into Peripheral Vein, Percutaneous Approach (ICD-10-PCS; 2025-02-01)
DX: D25.9 Leiomyoma of uterus, unspecified (principal); R57.8 Other shock; I27.20 Pulmonary hypertension, unspecified; Q20.3 Discordant ventriculoarterial connection; Z79.01 Long term (current) use of anticoagulants; D50.0 Iron deficiency anemia secondary to blood loss (chronic); I11.0 Hypertensive heart disease with heart failure; E66.9 Obesity, unspecified; I50.32 Chronic diastolic (congestive) heart failure; I48.91 Unspecified atrial fibrillation; E87.6 Hypokalemia; E78.5 Hyperlipidemia, unspecified; N92.1 Excessive and frequent menstruation with irregular cycle; I45.10 Unspecified right bundle-branch block; Z86.73 Personal history of transient ischemic attack (TIA), and cerebral infarction without residual deficits; Z95.0 Presence of cardiac pacemaker; Z88.0 Allergy status to penicillin; Z88.1 Allergy status to other antibiotic agents; Z68.26 Body mass index [BMI] 26.0-26.9, adult; Z83.3 Family history of diabetes mellitus; Z82.49 Family history of ischemic heart disease and other diseases of the circulatory system; Z90.710 Acquired absence of both cervix and uterus
CPT/HCPCS: 36415; 71045; 80048; 80053; 80076; 81001; 81025; 83735; 83880; 85014; 85018; 85025; 85610; 85730; 86850; 86900; 86901; 86920; 87081; 93005; 93306; 96365; G0378; J1756; J2405; P9047